=== PATIENT | female | born 1980 | race African-American/Black ===

== ENCOUNTER 2023-05-08 13:07 | Outpatient (CLI) | payer MEDICAID, SELFPAY ==
--- NOTE | 2023-05-08 13:15 | US_ITS ---
FINAL REPORT TECHNIQUE: Limited sonographic images of the thyroid were obtained. CLINICAL HISTORY: THROAT FULLNESS FINDINGS: The right lobe of the thyroid measures 4.9 x 1.6 x 1.9 cm. There is a cystic nodule measuring 2 x 1 x 1 mm consistent with TI-RADS category 1. The left lobe of the thyroid measures 4.6 x 1.4 x 1.9 cm. No nodule is identified. The isthmus measures 4 mm. IMPRESSION: Right thyroid lobe nodule consistent with TI-RADS category 1. Reviewed, Interpreted and Dictated by Alcides Taylor III, MD Transcribed by Macy Lee Authenticated and [facility]
== END 2023-05-08 23:59 ==
LOC: RAD 13:08
PROVIDERS: PCP Family Medicine; Visit Provider Family Medicine
DX: E01.0 Iodine-deficiency related diffuse (endemic) goiter (principal); R09.89 Other specified symptoms and signs involving the circulatory and respiratory systems
CPT/HCPCS: 76536

== ENCOUNTER 2024-10-05 13:09 | Emergency (ER) | payer MEDICAID, SELFPAY ==
--- OUTSIDE RECORDS SUMMARY | 2024-10-05 08:15 | XMS_ITS | Encounter Summary ---
Author Organization [facility] Address [address] [place] [address] Care Team Providers Care Box Nailer Name Role Phone Moses Bashir MD Primary Care Provider Reason for Referral * Consultation (Routine) - Authorized Specialty Diagnoses / Procedures Referred By Jeremias quintanilla Referred To Contact Diagnoses Chronic systolic heart failure (CMS/HCC) Mason Hendrix MD [address] [place] [address] Phone: tel: fax: Referral ID Status Reason Start Date Expiration Date V isits Requested Visits Authorized [id number] Authorized 10/05/2024 04/06/2026 1 1 * Genetic Testing (Routine) - Pending Review Specialty Diagnoses / Procedures Referred By Jeremias quintanilla Referred To Contact Lab Diagnoses Chronic systolic heart failure (CMS/HCC) Procedures [facility] Arrhythmia and Cardiomyopathy Comprehensive Panel; Yes; No; No - Miscellaneous Test Ganesh Jaramillo MD [address] [place] [address] Phone: tel: fax: Referral ID Status Reason Start Date Expiration Date V isits Requested Visits Authorized [id number] Pending Review 10/05/2024 04/06/2026 1 1 Reason for Visit * Reason Comments Atrial Fibrillation Shortness of Breath Encounter Details Date Type Department Care Team (Late st Contact Info) Description 10/05/2024 8:15 AM EDT Office Visit [facility] [place] [address], [address] [place] [address] Sascha Chiang MD [address] [place] [address] Chronic systolic heart failure (CMS/HCC) (Primary Dx); History of atrial fibrillation Social History Tobacco Use Types Packs/Day Years Used Date Smoking Tobacco: Every Day Cigarettes 0.5 10.5 Started: 2014 Smokeless Tobacco: Never Alcohol Use Standard Drinks/Week Comments Yes 0 (1 standard drink = 0.6 oz pur e alcohol) Humiliation, Afraid, Rape, and Kick questionnair e Answer Date Recorded Within the last year, have y ou been afraid of your partner or ex-partner? No 04/18/2024 Within the last year, have y ou been humiliated or emotionally abused in other ways by your partner or ex-partner? No Within the last year, have y ou been kicked, hit, slapped, or otherwise physically hurt by your partner or ex-partner? No 04/18/2024 Within the last year, have y ou been raped or forced to have any kind of sexual activity by your partner or ex-partner? No 04/18/2024 PHQ-2 Answer Date Recorded Patient Health Questionnaire-2 Score 0 10/05/2024 Hunger Vital Sign Answer Date Recorded Within the past 12 months, y ou worried that your food would run out before you got the money to buy more. Never true 04/18/19 25 Within the past 12 months, t he food you bought just didn't last and you didn't have money to get more. Never true 04/18/2024 PRAPARE - Transportation Answer Date Re corded In the past 12 months, has l ack of transportation kept you from medical appointments or from getting medications? No 03/24 In the past 12 months, has l ack of transportation kept you from meetings, work, or from getting things needed for daily living? No 04/18/2024 PHQ-9 Answer Date Recorded Patient Health Questionnaire-9 Score 0 10/05/2024 Housing Stability Vital Sign Answer John e Recorded In the last 12 months, was t here a time when you were not able to pay the mortgage or rent on time? No 04/18/2024 Number of Times Moved in the Last Year Not on fi le 04/18/2024 At any time in the past 12 m [facility], were you homeless or living in a detention (including now)? No 04/18/2024 AUDIT-C Answer Date Recorded Q1: How often do you have a drink containing alc ohol? Monthly or less 10/05/2024 Q2: How many drinks containi ng alcohol do you have on a typical day when you are drinking? 1 or 2 10/05/2024 Q3: How often do you have si x or more drinks on one occasion? Less than monthly 10/05/2024 Utilities Answer Date Recorded In the past 12 months has th e electric, gas, oil, or water company threatened to shut off services in your home? No 04/18/2024 Comments No Sex and Gender Information Value Date Recorded Sex Assigned at Not on file Legal Sex Female 8:37 PM EDT Gender Identity Not on file Sexual Orientation Not on file documented as of this encounter Last Filed Vital Signs Vital Sign Reading Time Taken Comments Blood Pressure 117/80 10/05/2024 8:34 AM EDT Pulse 79 10/05/2024 8:34 AM EDT Temperature 36.6 C (97.9 F) 10/05/2024 8:34 AM EDT Respiratory Rate 17 10/05/2024 8:34 AM EDT Oxygen Saturation 97% 10/05/2024 8:34 AM EDT Inhaled Oxygen Concentration - - Weight 98 kg (216 lb 0.8 oz) 10/05/2024 8:34 AM EDT Height 157.5 cm (5' 2 ) 10/05/2024 8:34 AM EDT Body Mass Index 39.52 10/05/2024 8:34 AM EDT documented in this encounter Functional Status * AUDIT-C Score Answer Date of Assessment Author 2 10/05/2024 8:37 AM EDT Yareli Hoffman * Question Answer Date of Assessment Author Q1: How often do you have a drink containing alcohol? Monthly or less 10/05/2024 8:37 AM Cholo Zabala Q2: How many drinks containing alcohol do you have on a typical day when you are drinking? 1 or 2 10/05/2024 8:37 AM Yareli Zabala Q3: How often do you have six or more drinks on one occasion? Less than monthly 10/05/2024 8:37 AM Yareli Zabala * Over the past 2 weeks, how often have you been bothered by any of the following problems? Question Answer Date of Assessment Author Little interest or pleasure in doing things Not at all 10/05/2024 8:49 AM Yareli Zabala Feeling down, depressed, or hopeless Not at all 10/05/2024 8:49 AM Yareli Zabala Patient Health Questionnaire -2 Score 0 10/05/2024 8:49 AM Yareli Zabala * Question Answer Date of Assessment Author Trouble falling or staying a sleep, or sleeping too much Not at all 10/05/2024 8:49 AM Yareli Zabala Feeling tired or having rupal le energy Not at all 10/05/2024 8:49 AM Yareli Zabala Poor appetite or overeating Not at all 10/05/2024 8: 49 AM Yareli Zabala Feeling bad about yourself - or that you are a failure or have let yourself or your family down Not at all 10/05/2024 8:49 AM Yareli Zabala Trouble concentrating on thi ngs, such as reading the newspaper or watching television Not at all 10/05/2024 8:49 AM Yareli Zabala Moving or speaking so slowly that other people could have noticed? Or the opposite - being so fidgety or restless that you have been moving around a lot more than usual. Not at all 10/05/2024 8:49 AM Yareli Mena Thoughts that you would be b irina off or hurting yourself in some way Not at all 10/05/2024 8:49 AM Yareli Zabala Patient Health Questionnaire -9 Score 0 10/05/2024 8:49 AM EDT Yareli Hoffman * If you checked off any problems on this questionnaire so far, Question Answer Date of Assessment Author How difficult have these problems made it for you to do your work, take care of things at home, or get along with other people? Not difficult at all 10/05/2024 8:49 AM EDT Yareli Hoffman documented as of this encounter Plan of Treatment Upcoming Encounters Date Type Department Care Team (Late st Contact Info) Description 01/11/2025 8:00 AM EDT Office Visit [facility] [address], [address] [place] [address] Sascha Chiang MD [address] [place] [address] Pending Results Name Type Priority Associated Diagnoses Date /Time [facility] Arrhythmia and Cardiomyopathy Comprehensive Panel; Yes; No; No - Miscellaneous Test Lab Routine Chronic systolic heart failure (CMS/HCC) 10/05/2024 9:15 AM EDT Ferritin Lab Routine Chronic systolic heart failure (CMS/HCC) 10/05/2024 9:15 AM EDT Iron & Total Iron Binding Capacity, Plasma (Includes Transferrin) Lab Routine Chronic systolic heart failure (CMS/HCC) 10/05/2024 9:15 AM EDT Scheduled Orders Name Type Priority Associated Diagnoses Orde r Schedule Ferritin Lab Routine Chronic systolic heart failure (CMS/HCC) Expected: 10/05/2024 (Approximate), Expires: 04/08/2026 Iron & Total Iron Binding Capacity, Plasma (Includes Transferrin) Lab Routine Chronic systolic heart failure (CMS/HCC) Expected: 10/05/2024 (Approximate), Expires: 04/08/2026 Scheduled Referrals Name Type Priority Associated Diagnoses Order Schedule Follow Up Cardiology Outpatient Referral Routine Chronic systolic heart failure ([facility]) Expected: 01/05/2025, Expires: 04/07/2026 documented as of this encounter Procedures Procedure Name Priority Date/Time Associated Diagnosis Comments CREATINE KINASE, TOTAL, PLASMA Routine 10/05/2024 9:15 AM EDT Chronic systolic heart failure ([facility]) N-TERMINAL PROBNP, PLASMA Routine 10/05/2024 9:15 AM EDT Chronic systolic heart failure (CMS/HCC) URIC ACID, PLASMA Routine 10/05/2024 9:1 5 AM EDT Chronic systolic heart failure (CMS/HCC) LIPID PROFILE, PLASMA Routine 10/05/2024 9:15 AM EDT Chronic systolic heart failure (CMS/HCC) COMPREHENSIVE METABOLIC PANEL, PLASMA Routine 10/05/2024 9:15 AM EDT Chronic systolic heart failure (CMS/HCC) ECG ADULT Routine 10/05/2024 8:44 AM EDT History of atrial fibrillation documented in this encounter Results * Uric acid (10/05/2024 9:15 AM EDT) Uric Acid, Plasma 5.2 3.1 - 7.1 mg/dL 10/05/2024 11:58 AM EDT [facility] Blood Venous blood specimen / Unknown Venipuncture / Unknown 10/05/2024 9:15 AM EDT 10/05/2024 9:16 AM EDT us Ganesh Jaramillo MD LAB BLOOD ORDERABLES Final Res ult [facility] [address] [place] [address] * (ABNORMAL) Comprehensive metabolic panel (10/05/2024 9:15 AM EDT) Glucose, Plasma 82 74 - 99 mg/dL 10/05/2024 11:58 AM EDT [facility] BUN, Plasma 21 7 - 21 mg/dL 10/05/2024 11:58 AM EDT [facility] Creatinine, Plasma 0.82 0.60 - 1.10 mg/dL 10/05/2024 11:58 AM EDT [facility] BUN/Creatinine Ratio 26 10/05/2024 11:58 AM EDT [facility] Sodium, Plasma 132(L) 136 - 145 mmol/L 10/05/2024 11:58 AM EDT [facility] Potassium, Plasma 4.4 3.6 - 4.9 mmol/L 10/05/2024 11:58 AM EDT [facility] Chloride, Plasma 101 97 - 107 mmol/L 10/05/2024 11:58 AM EDT [facility] CO2, Plasma 23 22 - 29 mmol/L 10/05/2024 11:58 AM EDT [facility] Anion Gap 8 6 - 16 mmol/L 10/05/2024 11:58 AM EDT [facility] Total Calcium, Plasma 9.4 8.9 - 10.2 mg/dL 10/05/2024 11:58 AM EDT [facility] Total Protein 7.5 6.3 - 7.9 g/dL 10/05/2024 11:58 AM EDT [facility] Albumin, Plasma 4.2 3.5 - 5.2 g/dL 10/05/2024 11:58 AM EDT [facility] AST, Plasma 19 10 - 35 U/L 10/05/2024 11:58 AM EDT [facility] ALT, Plasma 18 10 - 35 U/L 10/05/2024 11:58 AM EDT [facility] Alkaline Phosphatase, Plasma 67 35 - 104 U/L 10/05/2024 11:58 AM EDT [facility] Total Bilirubin, Plasma 0.2 0.2 - 1.1 mg/dL 10/05/2024 11:58 AM EDT [facility] eGFRcr 91.2 mL/min/1.7 3m*2 10/05/2024 11:58 AM EDT [facility] Comment:Reported eGFRcr in m L/min/1.73m2 is based the CKD-EPI 2020 equation that does not use a race coefficient. Blood Venous blood specimen / Unknown Venipuncture / Unknown 10/05/2024 9:15 AM EDT 10/05/2024 9:16 AM EDT us Ganesh Jaramillo MD LAB BLOOD ORDERABLES Final Res ult [facility] [address] [place] [address] * Creatine Kinase (CK), Total (10/05/2024 9:15 AM EDT) Creatine Kinase, Plasma 77 37 - 168 U/L 10/05/2024 11:58 AM EDT [facility] Blood Venous blood specimen / Unknown Venipuncture / Unknown 10/05/2024 9:15 AM EDT 10/05/2024 9:16 AM EDT us Ganesh Jaramillo MD LAB BLOOD ORDERABLES Final Res ult [facility] [address] [place] [address] * Lipid panel (10/05/2024 9:15 AM EDT) Cholesterol, Plasma 120 <200 mg/dL 10/05/2024 11:58 AM EDT [facility] Comment: Cholesterol Reference Range (age >17 years): Desirable <200 mg/dL Borderline 200 to 239 mg/dL Undesirable >239 mg/dL HDL 51 >=50 mg/dL 10/05/2024 11:58 AM EDT [facility] Comment: HDL Cholesterol Reference Ranges (age >17 years): Female, acceptable > or = 50 mg/dL Male, acceptable > or = 40 mg/dL Triglycerides, Plasma 97 <150 mg/dL 10/05/2024 11:58 AM EDT [facility] Comment: Triglyceride Reference Range (age >17 years): Desirable: <150 mg/dL Borderline high: 150 to 199 mg/dL High: 200 to 499 mg/dL Very high: >499 mg/dL Increased risk of pancreatitis: >1000 mg/dL Cholesterol/HDL Ratio 2 10/05/2024 11:58 AM EDT [facility] LDL, Calculated 51 <100 mg/dL 11:58 AM EDT [facility] Comment: LDL Cholesterol Reference Range (age >17 years): Optimal: <100 mg/dL Near or above optimal: 100 - 129 mg/dL Borderline high: 130 - 159 mg/dL High: 160 - 189 mg/dL Very high: >189 mg/dL LDL Cholesterol Reference Range (age <18 years): Desirable: <110 mg/dL Borderline: 110 - 129 mg/dL Undesirable: >130 mg/dL LDL Cholesterol is calculated using the Dwyer/NIH equation. Fasting greater than or equal to 12 hours? Unknown 10/05/2024 11:58 AM EDT [facility] Blood Venous blood specimen / Unknown Venipuncture / Unknown 10/05/2024 9:15 AM EDT 10/05/2024 9:16 AM EDT us Ganesh Jaramillo MD LAB BLOOD ORDERABLES Final Res ult Performing Organization Address City/[facility] Co de Phone Number [facility] [address] [place] [address] * N-Terminal Probnp, Plasma (10/05/2024 9:15 AM EDT) N-Terminal, PROBNP, Plasma <50 0 - 449 pg/mL 10/05/2024 11:58 AM EDT [facility] Blood Venous blood specimen / Unknown Venipuncture / Unknown 10/05/2024 9:15 AM EDT 10/05/2024 9:16 AM EDT us Ganesh Jaramillo MD LAB BLOOD ORDERABLES Final Res ult Performing Organization Address [facility] de Phone Number [facility] [address] [place] [address] * ECG Adult (Now - Performed in your clinic) (10/05/2024 8:44 AM EDT) EKG DIAGNOSIS CLASS Normal MUSE ECG Ventricular Rate 76 BPM MUSE ECG Atrial Rate 76 BPM MUSE ECG [place] Interval 198 ms MUSE ECG QRSD Interval 100 ms MUSE ECG QT Interval 382 ms MUSE ECG QTC Interval 429 ms MUSE ECG P [place] 33 degrees MUSE ECG R [place] 69 degrees MUSE ECG T Wave [place] 87 degrees MUSE ECG Diagnosis Normal sinus rhythm MUSE ECG Diagnosis Normal ECG MUSE ECG Diagnosis MUSE ECG Diagnosis Confirmed by Edwin Espinal ([id number]) on 10/05/2024 9:09:23 AM MUSE ECG 10/05/2024 8:44 AM EDT 10/05/2024 9:09 AM EDT us Mason Hendrix MD ECG ORDERABLES Final Result MUSE ECG documented in this encounter Visit Diagnoses Diagnosis Chronic systolic heart failure (CMS/HCC)- Primary Chronic systolic heart failure History of atrial fibrillation Personal history of other diseases of circulatory system documented in this encounter Additional Health Concerns Assessment Noted Time PHQ-9 Depression Total Score: 0 10/06/19 25 8:49 AM EDT A fall risk assessment has been complete d for the patient 10/05/2024 8:49 AM EDT A Body Mass Index follow-up plan has been documented for the patient 10/05/2024 9:34 AM EDT documented as of this encounter Care Teams Box Nailer Relationship Specialty Start Date End Date Moses Bashir MD [address] [place] [address] PCP - General Family Medicine 11/01/20 documented as of this encounter
--- NOTE | 2024-10-05 13:10 | ED_ITS ---
<Statement entered by Jeannine Reyes DO - 10/05/24 17:00> I was consulted by the RUBI, and we discussed the complexity of problems being addressed. I approve the treatment and management plan for this patient's care in the emergency department, thus performing a substantial portion of the medical decision making. Jeannine Reyes DO Discharge Plan Disposition Patient Disposition: Home, Self-Care Condition: Good Referrals Follow up/Referrals: Moses Bashir [Primary Care Provider, Medical] - See instructions Activity Restrictions/Add. Instructions Additional Instructions/Restrictions: As we discussed you can leave the wound open to air but but if you have to cover it please do not use an occlusive dressing. Please do not put any ointments or creams on your wound until the stitches come out. Your stitches need to come out in 7 to 10 days. He may return to your PCP MOC or the ER for suture removal if you have any increasing redness pain drainage or swelling return to the emergency department for evaluation. Clinical Impressions Clinical Impression: Laceration Instructions Patient Instructions: DI for Laceration Repair Print Language Print Language: Croatian Discharge ED Provider: Jeannine Reyes General Adult HPI General Chief complaint: Wound/Laceration Stated complaint: AO 1300 hours- laceration to Right hand Time Seen by Provider: 10/05/24 13:10 History of Present Illness HPI narrative: Patient presents for evaluation of laceration to right hand. Patient was washing dishes and a glass broke causing a laceration to the MCP joint of the second digit dorsally of her right hand. Patient has no loss of motor or sensory and has full range of motion. Related Data Allergies Allergy/AdvReac Type Severity Reaction Status Date / Time Penicillins Allergy Other Verified 10/05/24 13:26 [facility] Disclaimer: The information contained in this section may have been updated after the patient was seen, as this information can be updated by other users. Social History Smoking Status: Current every day smoker alcohol intake: never current occupational status: employed Travel in the last 8 weeks?: None ROS Obtained: Yes Systems reviewed as appropriate & no additional complaints except as documented Physical Exam General General appearance: alert Respiratory Respiratory exam: Present normal lung sounds bilaterally Cardiovascular Cardiovascular exam: Present regular rate Neurological Exam Neurological exam: Present alert and oriented X3 Medical Decision Making Medical Records Screening: Per USPSTF and CDC recommendations, given the prevalence of disease in our region, it is our hospital?s policy to screen for HIV and viral Hepatitis for all patients aged 18 and over and those with ongoing risk factors. Bunny Inquiry Pt receiving controlled substance: No Vital Signs: 10/05/24 13:17 10/05/24 13:17 10/05/24 13:30 Temperature 97.9 F 97.9 F Temperature Source Oral Oral Pulse Rate 80 78 Pulse Rate [Right] 80 Respiratory Rate 15 15 Blood Pressure 152/94 H 123/89 Blood Pressure [Right Arm] 152/94 H Blood Pressure Mean 98 Blood Pressure Mean [Right Arm] 113 Blood Pressure Source Automatic Cuff Blood Pressure Source [Right Arm] Automatic Cuff Blood Pressure Position Supine Blood Pressure Position [Right Arm] Supine 02 Sat by Pulse Oximetry 99 99 98 Oxygen Delivery Method Room Air Room Air 10/05/24 13:45 Temperature Temperature Source Pulse Rate 78 Pulse Rate [Right] Respiratory Rate Blood Pressure 127/88 Blood Pressure [Right Arm] Blood Pressure Mean Blood Pressure Mean [Right Arm] Blood Pressure Source Blood Pressure Source [Right Arm] Blood Pressure Position Blood Pressure Position [Right Arm] 02 Sat by Pulse Oximetry 99 Oxygen Delivery Method Orders (Tests/Meds): ED MEDICATIONS Discontinued Medications Generic Name Dose Route Start Last Admin Trade Name Freq PRN Reason Stop Dose Admin Lidocaine/Epinephrine 10 ml 10/05/24 13:15 Lidocaine 1% W/Epi 1:100,000 20ml Vial SQ 10/05/24 13:16 ONCE ONE Medical Decision Narrative: In summary patient is a 44-year-old female who presents to the emergency department for evaluation of laceration to right hand. Patient is dynamically stable upon arrival, afebrile. Exam is remarkable for a triangle shaped laceration at the MCP joint of her right hand. She denies any numbness tingling loss of motor or sensory is neurovascular intact distally.. Differential diagnosis includes could include an open laceration to the joint but there are no visible signs for any deeper injury so alternative diagnosis pursued. Initial workup was considered with imaging however patient remains neurovascular intact with full range of motion thus further workup not required. Initial interventions were considered for Tdap however patient is up-to-date thus deferred. Wound was cleaned and irrigated and then anesthetized with lidocaine and wound was closed primarily with seven 4.0 nylon stitches in an interrupted fashion. Wound care and strict return precautions were explained to the patient by myself. Patient verbalized understanding agreement. Procedures Laceration Laceration 1: Site: hand Side (If applicable): right Size (cm): 3.5 Description: other (Triangular) Depth: simple, single layer Local Anesthetic: lidocaine 1% and with epi Amount of anesthesia used (mL): 5 Pre-repair: wound explored, irrigated extensively and deep structures intact Skin layer closed with: nylon Size (cm): 4-0 Number of sutures: 7 Technique: simple, interrupted Critical Care Critical Care Time Critical Care Time: No
--- OUTSIDE RECORDS SUMMARY | 2024-10-05 13:16 | XMS_ITS | Encounter Summary ---
Author Organization [facility] ([place], [place], [place], [place]) Address [address] [place] [address] Care Team Providers Care Hide Stretcher Hand Name Role Phone Carlos Carrion MD Unavailable Bernardo Bashir MD Primary Care Provider [phone] Encounter Details Date Type Department Care Team (Late st Contact Info) Description 01/30/2021 Transcribed Document [facility] Family Medicine [address] [place] [address] ProviderNehemiah MD [address] [place] [address] Social History Tobacco Use Types Packs/Day Years Used Date Smoking Tobacco: Never Assessed Comments Unknown Sex and Gender Information Value Date Recorded Sex Assigned at Female 09/17/2021 2:29 PM CDT Legal Sex Female 2:29 PM CDT Gender Identity Female 09/17/2021 2:29 PM CDT Sexual Orientation Not on file documented as of this encounter Miscellaneous Notes * Cerner Conversion Note - Nehemiah ProviderMD - 01/30/2021 5:21 PM WOMEN SPECIALIST Pain Assessment Entered On: 02/01/2021 23:26 EST Performed On: 02/01/2021 21:48 EST by BHAVNA TAI RN-PATIENT CARE BEDSIDE NON-EXEMPT Intervention Information: acetaminophen-HYDROcodone Performed by BHAVNA TAI RN-PATIENT CARE BEDSIDE NON-EXEMPT on 02/01/2021 20:48:00 EST acetaminophen-HYDROcodone,1Tab Oral,Pain (Mild 1-3) Pain Assessment Pain Assessment : Follow-up assessment BHAVNA TAI RN-PATIENT CARE BEDSIDE NON-EXEMPT - 02/01/2021 23:25 EST Electronically signed by Melyssa [facility] Conversion Lehr Operator Cerner at 07/08/2022 9:05 AM CDT documented in this encounter Plan of Treatment Upcoming Encounters Date Type Department Care Team (Late st Contact Info) Description 11/17/2024 9:30 AM EDT Office Visit [facility] Electrophysiology [address] [place] [phone] Carlos Carrion MD [address] [place] [address] [place] [address] documented as of this encounter Visit Diagnoses Not on filedocumented in this encounter Care Teams Hide Stretcher Hand Relationship Specialty Start Date End Date Bernardo Bashir MD [address] [place] [address] PCP - General Family Medicine 05/13/24 Carlos Carrion MD [address] [place] [address] [place] [id number] [facility] 12/28/23 documented as of this encounter
--- OUTSIDE RECORDS SUMMARY | 2024-10-05 13:16 | XMS_ITS | Encounter Summary ---
Author Organization [employer] ([place], [place], [place], [place]) Address [address] [place] [address] Care Team Providers Care Human Resources Coordinator Name Role Phone Carlos Carrion MD Unavailable Bernardo Bashir MD Primary Care Provider [phone] [phone] Encounter Details Date Type Department Care Team (Late st Contact Info) Description 01/30/2021 Transcribed Document [facility] [place] [address] [place] [address] ProviderNehemiah MD [address] [place] [address] Social History Tobacco Use Types [...] Conversion Note - Nehemiah ProviderMD - 01/30/2021 3:57 PM NETWORK OPERATIONS ANALYST Patient: OSMAN ARAGON Age: 40 years Sex: Female : 1980 Associated Diagnoses: Pacemaker infection Author: CHOCO MARTINEZ MD Basic Information History source: Patient. Arrival mode: Private vehicle. History limitation: None. History of Present Illness The patient presents for a wound evaluation. Previous visit(s) 3 days ago. Previous treatment: pacer/defib placed about 2wks ago, incision site opened and started to drain pus. Denies fever/chills, n/v, cp, soa, abd pain. . Symptoms since visit: pain, redness, swelling drainage. The course/duration of symptoms is worsening. Risk factors consist of cardiomyopathy. Therapy today: doctor's office visit. Associated symptoms: denies fever and denies chills. Review of Systems Constitutional symptoms: No fever, no chills, no sweats, no weakness, no fatigue. Skin symptoms: No rash, Eye symptoms: Vision unchanged, no pain, no discharge, no blurred vision. ENMT symptoms: No ear pain, no sore throat, no nasal congestion. Respiratory symptoms: No shortness of breath, no cough. Cardiovascular symptoms: No chest pain, no palpitations, no syncope. Gastrointestinal symptoms: No abdominal pain, no nausea, no vomiting, no diarrhea. Genitourinary symptoms: No dysuria, no hematuria. Musculoskeletal symptoms: No back pain, no Joint pain. Neurologic symptoms: No headache, no dizziness, no numbness, no weakness. Physical Examination Vital Signs Oxygen saturation. General: Alert, no acute distress. Skin: Warm. Head: Normocephalic. Neck: Supple. Eye: Sclera: not icteric. Ears, nose, mouth and throat: Oral mucosa moist. Cardiovascular: Regular rate and rhythm, No murmur, Normal peripheral perfusion, No edema. Respiratory: Lungs are clear to auscultation, respirations are non-labored, breath sounds are equal. Chest wall: superior anterior chest wall pacemaker/defib incision site dehisced with purulent drainage and surrounding erythema. . Back: Nontender. Gastrointestinal: Soft, Nontender, Non distended, Normal bowel sounds. Neurological: No focal neurological deficit observed. Lymphatics: No lymphadenopathy. Psychiatric: Cooperative. Impression and Plan Diagnosis Pacemaker infection - Discharge, Medical Plan Condition: Stable, Guarded. Disposition: Admit Admit/Transfer/Discharge: Admit to Inpatient (Order): Start: 01/30/2021 16:07 EST, Admit reason: infected pacemaker site, Estimated length of stay 2 Midnights or LONGER, Level of Care: Telemetry unit, Admitting: ОЛЕГ LOCK MD-INT. Counseled: Patient, Family, Regarding diagnosis, Regarding diagnostic results, Regarding treatment plan, Patient indicated understanding of instructions. Notes: Patient presented with signs of infection around her recently placed pacemaker defibrillator. Erythema and drainage noted around the incision site. Patient is afebrile vital signs are stable. Nontoxic-appearing. Given IV vancomycin. Discussed and consulted with her EP vessel scrapper Dr. Carrion, he would like her admitted. Discussed with hospitalist Dr. Lock who accepts admission for further evaluation and care.. documented in this encounter Plan of Treatment Upcoming Encounters Date Type Department Care Team (Late st Contact Info) Description 11/17/2024 9:30 AM EDT Office Visit [facility] Electrophysiology [address] [place] [phone] Carlos Carrion MD [address] [place] [address] [address] documented as of this encounter Visit Diagnoses Not on filedocumented in this encounter Care Teams Human Resources Coordinator Relationship Specialty Start Date End Date Bernardo Bashir MD [address] [place] [address] PCP - General Family Medicine 05/13/24 Carlos Carrion MD [address] [place] [address] [address] Screen Printing Loader Unloader Electrophysiology 12/28/23 documented as of this encounter
--- OUTSIDE RECORDS SUMMARY | 2024-10-05 13:16 | XMS_ITS | Encounter Summary ---
Author Organization [employer] ([place], [place], [place], [place]) Address [address] [place] [address] Care Team Providers Care Rn Clinical Research Name Role Phone Carlos Carrion MD Unavailable Bernardo Bashir MD Primary Care Provider [phone] Encounter Details Date Type Department Care Team (Late st Contact Info) Description 01/30/2021 Transcribed Document [facility] [place] [address] [place] [address] ProviderNehemiah MD [address] [place] [address] Social History Tobacco Use Types Packs/Day Years Used Date Smoking Tobacco: Never Assessed Comments Unknown Sex and Gender Information Value Date Recorded Sex Assigned at Female 09/17/2021 2:29 PM CDT Legal Sex Female 2:29 PM CDT Gender Identity Female 09/17/2021 2:29 PM CDT Sexual Orientation Not on file documented as of this encounter Miscellaneous Notes * [employer]ner Conversion Note - Historical Provider, - 01/30/2021 9:52 PM CLERK SUPERVISOR ED Event Note Entered On: 01/30/2021 21:52 EST Performed On: 01/30/2021 21:52 EST by SUMIT LUGO RN ED Event Note ED Event Date/Time : 01/30/2021 21:52 EST ED Description of Event : report called to SUMIT Moreno RN, RN - 01/30/2021 21:52 EST Electronically signed by [facility] Conversion Portfolio Consultant Cerner at 07/08/2022 9:03 AM CDT documented in this encounter Plan of Treatment Upcoming Encounters Date Type Department Care Team (Late st Contact Info) Description 11/17/2024 9:30 AM EDT Office Visit [facility] Electrophysiology [address] [place] [phone] [place] [address] [place] [address] [id number] documented as of this encounter Visit Diagnoses Not on filedocumented in this encounter Care Teams Rn Clinical Research Relationship Specialty Start Date End Date Bernardo Bashir MD [address] [place] [address] PCP - General Family Medicine 05/13/24 Carlos Carrion MD [address] [place] [address] [id number] Assembler Latches And Springs Electrophysiology 12/28/23 documented as of this encounter
--- OUTSIDE RECORDS SUMMARY | 2024-10-05 13:16 | XMS_ITS | Encounter Summary ---
Author Organization [employer] ([place], [place], [place], [place]) Address [address] [place] [address] Care Team Providers Care Retail Director Name Role Phone Carlos Carrion MD Unavailable Bernardo Bashir MD Primary Care Provider [phone] [phone] Encounter Details Date Type Department Care Team (Late st Contact Info) Description 01/30/2021 Transcribed Document [facility] [place] Family Medicine [address] [place] [address] ProviderNehemiah MD [address] [place] [address] Social History Tobacco Use Types [...] - Nehemiah ProviderMD - 01/30/2021 5:21 PM RECRUITING SCHEDULER Pain Assessment Entered On: 01/31/2021 1:51 EST Performed On: 01/30/2021 23:58 EST by BHAVNA TAI RN-PATIENT CARE BEDSIDE NON-EXEMPT Intervention Information: acetaminophen Performed by BHAVNA TAI RN-PATIENT CARE BEDSIDE NON-EXEMPT on 01/30/2021 22:58:00 EST acetaminophen,650mg Oral,Pain (Mild 1-3) Pain Assessment Pain Assessment : Follow-up assessment BHAVNA TAI RN-PATIENT CARE BEDSIDE NON-EXEMPT - 01/31/2021 1:51 EST Electronically signed by Mitra Ragsdale Conversion Psychologist Research Assistant Cerner at 07/08/2022 8:46 AM CDT documented in this encounter Plan of Treatment Upcoming Encounters Date Type Department Care Team (Late st Contact Info) Description 11/17/2024 9:30 AM EDT Office Visit [facility] Electrophysiology [address] [place] [phone] Carlos Carrion MD [address] [place] [address] [phone] documented as of this encounter Visit Diagnoses Not on filedocumented in this encounter Care Teams Retail Director Relationship Specialty Start Date End Date Bernardo Bashir MD [address] [place], [place] [phone] PCP - General Family Medicine 05/13/24 Carlos Carrion MD [address] [place] [address] [phone] Horticulture/Floriculture Teacher Electrophysiology 12/28/23 documented as of this encounter
--- OUTSIDE RECORDS SUMMARY | 2024-10-05 13:16 | XMS_ITS | Encounter Summary ---
Author Organization [employer] ([place], [place], [place], [place]) Address [address] [place] [address] Care Team Providers Care Microsystems Engineer Name Role Phone Carlos Carrion MD Unavailable Bernardo Bashir MD Primary Care Provider [phone] [phone] Encounter Details Date Type Department Care Team (Late st Contact Info) Description 01/30/2021 Transcribed Document [facility] [place] [address] [place] [address] ProviderNehemiah MD [address] [place] [address] Social History Tobacco Use Types [...] Conversion Note - Nehemiah ProviderMD - 01/30/2021 10:22 PM FIRE EXTINGUISHER SPRINKLER INSPECTOR ED Discharge Entered On: 01/30/2021 22:24 EST Performed On: 01/30/2021 22:22 EST by SUMIT LUGO RN Discharge Process Patient Disposition : Admit/Observe SUMIT LUGO RN - 01/30/2021 22:22 EST Admission, ED Nurse Report Accepted By : Shari LAINEZ `Nurse Report (Hand Off) : Called SUMIT LUGO RN - 01/30/2021 22:22 EST Electronically signed by Melyssa [facility] Conversion Registered Associate Cerner at 07/08/2022 9:04 AM CDT documented in this encounter Plan of Treatment Upcoming Encounters Date Type Department Care Team (Late st Contact Info) Description 11/17/2024 9:30 AM EDT Office Visit [facility] Electrophysiology [address] [place] [phone] Carlos Carrion MD [address] [place] [address] [phone] documented as of this encounter Visit Diagnoses Not on filedocumented in this encounter Care Teams Microsystems Engineer Relationship Specialty Start Date End Date Bernardo Bashir MD [address] [place] [address] PCP - General Family Medicine 05/13/24 Carlos Carrion MD [address] [place] [address] [phone] Fruit Dumper Electrophysiology 12/28/23 documented as of this encounter
--- OUTSIDE RECORDS SUMMARY | 2024-10-05 13:16 | XMS_ITS | Encounter Summary ---
Author Organization [employer] ([place], [place], [place], [place]) Address [address] [place] [address] Care Team Providers Care Weight Analyst Name Role Phone Carlos Carrion MD Unavailable Bernardo Bashir MD Primary Care Provider [phone] [phone] Encounter Details Date Type Department Care Team (Late st Contact Info) Description 01/30/2021 Transcribed Document [facility] [place] Family Medicine [address] [place] [address] ProviderNehemiah MD [address] [place] [address] Social History Tobacco Use Types Packs/Day Years Used Date Smoking Tobacco: Never Assessed Comments Unknown Sex and Gender Information Value Date Recorded Sex Assigned at Female 09/17/2021 2:29 PM CDT Legal Sex Female 2:29 PM CDT Gender Identity Female 09/17/2021 2:29 PM CDT Sexual Orientation Not on file documented as of this encounter Miscellaneous Notes * [employer]ner Conversion Note - Historical ProviderMD - 01/30/2021 12:04 PM NURSE ORTHO Nutrition Assessment Entered On: 02/01/2021 10:22 EST Performed On: 02/01/2021 10:22 EST by Elvira Elmore Diet Technician Nutrition Assessment Nutrition Assessment Reason : Automatic referral Elvira Elmore Diet Technician - 02/01/2021 10:22 EST Nutrition Recommendations Dietitian Recommendations : 02/01: Consult received for BMI >40. 40yo F admitted for infected surgical site s/p ICD implantation on 01/16. PMHx of nonischemic cardiomyopathy, GERD, HTN, tachycardia. Pt on cardiac, low fat, low sodium (2g) diet, no intakes documented. Pt reports appetite is good/normal. Denies n/v/d. No UWL documented. Pacemaker site inflammation present (covered w/glue). Treating w/abx. Written and verbal cardiac diet education provided to pt. Pt states familiarity. LBM 02/01. No nutrition dx at this time. signal technician to rescreen in 7-10 days. Elvira Elmore, Diet Dish Person - 02/01/2021 11:23 EST Electronically signed by [facility] Conversion Vermin Exterminator Cerner at 07/08/2022 8:57 AM CDT documented in this encounter Plan of Treatment Upcoming Encounters Date Type Department Care Team (Late st Contact Info) Description 11/17/2024 9:30 AM EDT Office Visit [facility] Electrophysiology [address] [place] [phone] Carlos Carrion MD [address] [place] [address] [place] [address] documented as of this encounter Visit Diagnoses Not on filedocumented in this encounter Care Teams Weight Analyst Relationship Specialty Start Date End Date Bernardo Bashir MD [address] [place] [address] PCP - General Family Medicine 05/13/24 Carlos Carrion MD [address] [place] [address] Separator Tender Electrophysiology 12/28/23 documented as of this encounter
--- OUTSIDE RECORDS SUMMARY | 2024-10-05 13:16 | XMS_ITS | Encounter Summary ---
Author Organization [employer] ([place], [place], [place], [place]) Address [address] [place] [address] Care Team Providers Care Title I Director Name Role Phone Carlos Carrion MD Unavailable Bernardo Bashir MD Primary Care Provider [phone] Encounter Details Date Type Department Care Team (Late st Contact Info) Description 01/30/2021 Transcribed Document [facility] [place] [address] [place] [address] ProviderNehemiah MD [address] [place] [address] Social History Tobacco Use Types Packs/Day [...] Conversion Note - Historical ProviderMD - 01/30/2021 4:51 PM PRESS TENDER SHORT GOODS Consult Phone Call Documentation Entered On: 01/31/2021 9:09 EST Performed On: 01/30/2021 16:51 EST by Marla Hernández Phone Call for Consults Consult Phone Call/Page Attempt : First call Consult Reason : infected pacemaker Physician Requesting Consult : ОЛЕГ TERRY MD-INT Provider Service Notified Name : Cardiology Date and Time Call Returned : 01/31/2021 9:08 EST Consult, Additional Information : They were aware and have seen patient Marla Hernández - 01/31/2021 9:08 EST Electronically signed by Mely[facility] Conversion Folder Taper Operator Cerner at 07/08/2022 8:47 AM CDT documented in this encounter Plan of Treatment Upcoming Encounters Date Type Department Care Team (Late st Contact Info) Description 11/17/2024 9:30 AM EDT Office Visit [facility] Electrophysiology [address] [place] [phone] Carlos Carrion MD [address] [place] [address] [place] [phone] documented as of this encounter Visit Diagnoses Not on filedocumented in this encounter Care Teams Title I Director Relationship Specialty Start Date End Date Bernardo Bashir MD [address] [place] [address] PCP - General Family Medicine 05/13/24 Carlos Carrion MD [address] [place] [address] [phone] Remote Sensing Research Scientist Electrophysiology 12/28/23 documented as of this encounter
--- OUTSIDE RECORDS SUMMARY | 2024-10-05 13:16 | XMS_ITS | Encounter Summary ---
Author Organization [employer] ([place], [place], [place], [place]) Address [address] [place] [address] Care Team Providers Care Satellite Instruction Facilitator Name Role Phone Carlos Carrion MD Unavailable Bernardo Bashir MD Primary Care Provider [phone] [phone] Encounter Details Date Type Department Care Team (Late st Contact Info) Description 01/30/2021 Transcribed Document [facility] [place] Family Medicine [address] [place] [address] ProviderNehemiah MD [address] [place] [address] Social History Tobacco Use Types [...] Conversion Note - Historical ProviderMD - 01/30/2021 10:20 PM QUARTER FOLDER ED Event Note Entered On: 01/30/2021 22:22 EST Performed On: 01/30/2021 22:20 EST by SUMIT LUGO RN ED Event Note ED Event Date/Time : 01/30/2021 22:05 EST ED Description of Event : Patient complains of itching and redness to her chest and neck area that began after vancomycin infusion. Vancomycin discontinued, IV flushed and new allergy documented. Pt denies SOA or CP at this time, primary RN on 4IC aware via phone SUMIT LUGO RN - 01/30/2021 22:20 EST Electronically signed by Melyssa [facility] Conversion Software Support Specialist Cerner at 07/08/2022 9:09 AM CDT documented in this encounter Plan of Treatment Upcoming Encounters Date Type Department Care Team (Late st Contact Info) Description 11/17/2024 9:30 AM EDT Office Visit [facility] Electrophysiology [address] [place] [phone] Carlos Carrion MD [address] [place] [address] [place] [phone] documented as of this encounter Visit Diagnoses Not on filedocumented in this encounter Care Teams Satellite Instruction Facilitator Relationship Specialty Start Date End Date Bernardo Bashir MD [address] [place] [address] PCP - General Family Medicine 05/13/24 Carlos Carrion MD [address] [place] [address] [phone] Medical Information Officer Electrophysiology 12/28/23 documented as of this encounter
--- OUTSIDE RECORDS SUMMARY | 2024-10-05 13:16 | XMS_ITS | Encounter Summary ---
Author Organization [employer] ([place], [place], [place], [place]) Address [address] [place] [address] Care Team Providers Care Hydrogen Plant Operations Manager Name Role Phone Carlos Carrion MD Unavailable Bernardo Bashir MD Primary Care Provider [phone] Encounter Details Date Type Department Care Team (Late st Contact Info) Description 01/30/2021 Transcribed Document [facility] [place] [address] [place] [address] ProviderNehemiah MD [address] [place] [address] Social History Tobacco Use Types [...] Conversion Note - Historical ProviderMD - 01/30/2021 10:34 PM UNIFIED COMMUNICATIONS ENGINEER Meds to Bed Enrollment Entered On: 01/31/2021 9:27 EST Performed On: 01/30/2021 22:34 EST by Kashif Stephens Canal Boat Operator Cert Lead Meds to Bed Enrollment Patient Enrollment Decision: : Yes/enroll in meds to bed program Kashif Stephens Canal Boat Operator Cert Lead - 01/31/2021 9:27 EST documented in this encounter Plan of Treatment Upcoming Encounters Date Type Department Care Team (Late st Contact Info) Description 11/17/2024 9:30 AM EDT Office Visit [facility] Electrophysiology [address] [place] [phone] Carlos Carrion MD [address] [facility] [address] [address] documented as of this encounter Visit Diagnoses Not on filedocumented in this encounter Care Teams Hydrogen Plant Operations Manager Relationship Specialty Start Date End Date Bernardo Bashir MD [address] [place] [address] PCP - General Family Medicine 05/13/24 Carlos Carrion MD [address] [facility] [address] [address] Manager Field Sales Electrophysiology 12/28/23 documented as of this encounter
--- OUTSIDE RECORDS SUMMARY | 2024-10-05 13:16 | XMS_ITS | Encounter Summary ---
Author Organization [employer] ([place], [place], [place], [place]) Address [address] [place] [address] Care Team Providers Care Photoengraving Apprentice Name Role Phone Carlos Carrion MD Unavailable Bernardo Bashir MD Primary Care Provider [phone] Encounter Details Date Type Department Care Team (Late st Contact Info) Description 01/30/2021 Transcribed Document [facility] [place] [address] [place] [address] ProviderNehemiah MD [address] [place] [address] Social History Tobacco Use Types [...] Conversion Note - Historical ProviderMD - 01/30/2021 11:57 AM GASOLINE FINISHER ED Triage Entered On: 01/30/2021 12:04 EST Performed On: 01/30/2021 12:00 EST by Alix Edmond Rn ED Triage Across the Room Chief Complaint : c/o of oozing drainage from surgical wound. Had defib placed by Dr. tariq on Jan 16. Instructed to come to Ed for possible infection. Denies fever. Hx of CHF Triage Date/Time : 01/30/2021 12:00 EST Alix Edmond Rn - 01/30/2021 12:00 EST DCP GENERIC CODE Tracking Acuity : 3 - Urgent Tracking Group : [facility] ED Alix Edmond Rn - 01/30/2021 12:00 EST Mode of Arrival : Ambulatory Transported to ED by : Walk in To Room Via : Ambulate Accompanied By : Father ED Vital Signs : Document Height & Weight : Document ED Allergies : Document ED Reason for Visit : Document Alix Edmond Rn - 01/30/2021 12:00 EST Infectious Disease History Does patient have symptoms of COVID-19? : No Has the Patient Been Tested for COVID-19 in the last 14 days? : No, Patient stated Does the Patient state known exposure to a COVID-19 positive case in the last 14 days? : No Patient Vaccinated for COVID-19 : Not vaccinated Does Patient want a COVID-19 Vaccine? : No Alix Edmond Rn - 01/30/2021 12:00 EST Infectious Disease Risk Screening Grid Cough < 2 wks of unknown origin : NO Cough > 2 weeks : NO Blood in Sputum : NO Fever or self-reported Fever : NO Rash of unknown origin : NO Headache : NO Stiff neck : NO Night Sweats : NO Unexplained Weight Loss : NO Diarrhea (3 episode per day) : NO Alix Edmond Rn - 01/30/2021 12:00 EST Physical contact outside US in the last 30 days : No Hospitalized in Foreign Country : No Infectious Disease History : Chicken pox/Shingles, Mononucleosis, Mumps INF Disease TB Screening Calc : 0 INF Disease Recent Travel Calc : 0 Alix Edmond Rn - 01/30/2021 12:00 EST Vital Signs ED Temperature Source : Temporal artery scanning Temperature Mode : Fahrenheit Temperature, Fahrenheit : 98.0 Deg F ED Pain : Yes Clinical Temperature, C : 36.7 Deg C Oxygen Therapy Mode : Room air Peripheral Pulse Rate : 84 bpm Respiratory Rate : 19 Breaths/Min Systolic Blood Pressure : 123 mmHg Diastolic Blood Pressure : 80 mmHg Oxygen Saturation : 98 % Alix Edmond Rn - 01/30/2021 12:00 EST Allergy (As Of: 01/30/2021 12:04:21 EST) Allergies (Active) penicillin Estimated Onset Date: Unspecified ; Created By: Contributor_system HIST_RONALDO; Reaction Status: Active ; Category: Drug ; Substance: penicillin ; Type: Allergy ; Updated By: Contributor_system HIST_RONALDO; Reviewed Date: 01/30/2021 12:02 EST Diagnosis Control ED (As Of: 01/30/2021 12:04:21 EST) Problems(Active) Cardiomyopathy (SNOMED CT :869337431 ) Name of Problem: Cardiomyopathy ; Recorder: SARAHY MARTINEZ RN; Confirmation: Confirmed ; Classification: Patient Stated ; Code: [id number] ; Contributor System: Emote GamesChart ; Last Updated: 01/16/2021 11:50 EDT ; Life Cycle Date: 01/16/2021 ; Life Cycle Status: Active ; Vocabulary: SNOMED CT GERD (gastroesophageal reflux disease) (SNOMED CT :528261360 ) Name of Problem: GERD (gastroesophageal reflux disease) ; Recorder: SARAHY MARTINEZ RN; Confirmation: Confirmed ; Classification: Patient Stated ; Code: [id number] ; Contributor System: [employer]Chart ; Last Updated: 01/16/2021 11:52 EDT ; Life Cycle Date: 01/16/2021 ; Life Cycle Status: Active ; Vocabulary: SNOMED CT HTN (hypertension) (SNOMED CT :6887761758 ) Name of Problem: HTN (hypertension) ; Recorder: SARAHY MARTINEZ RN; Confirmation: Confirmed ; Classification: Patient Stated ; Code: [id number] ; Contributor System: PowerChart ; Last Updated: 01/16/2021 11:51 EDT ; Life Cycle Date: 01/16/2021 ; Life Cycle Status: Active ; Vocabulary: SNOMED CT Tachycardia (SNOMED CT :4863387 ) Name of Problem: Tachycardia ; Recorder: SARAHY MARTINEZ RN; Confirmation: Confirmed ; Classification: Patient Stated ; Code: [id number] ; Contributor System: PowerChart ; Last Updated: 01/16/2021 11:51 EDT ; Life Cycle Date: 01/16/2021 ; Life Cycle Status: Active ; Vocabulary: SNOMED CT Diagnoses(Active) Medical screening exam Date: 01/30/2021 ; Diagnosis Type: Reason For Visit ; Confirmation: Complaint of ; Clinical Dx: Medical screening exam ; Classification: Medical ; Clinical Service: Non-Specified ; Code: PNED ; Probability: 0 ; Diagnosis Code: [id number] ED Height and Weight Height Source : Stated Height Entry Format : [place] Height, Feet : 5 ft(Converted to: 152 cm, 60 Inch) Height, Inches : 1 Inch(Converted to: 0 ft 1 Inch, 2.54 cm) Clinical Height : 154.94 cm Weight Source, ED : Critical estimated dosing weight Weight Entry Format : [place] Weight, Pounds : 211 lb Clinical Dosing Weight : 95.91 kg Body Surface Area (BSA) : 1.93 m2 Body Mass Index : 40 kg/m2 (HI) [place] Body Weight (IBW) : 47.45 kg Alix Edmond Rn - 01/30/2021 12:00 EST Pain Assessment Pain Assessment : Initial assessment Pain Scale Used : 0-10 Scale Alix Edmond Rn - 01/30/2021 12:00 EST Pain Scale Intensity : 2 Alix Edmond Rn - 01/30/2021 12:00 EST Image 4 - Images currently included in the form version of this document have not been included in the text rendition version of the form. Electronically signed by Melyssa [facility] Conversion Pipe Insulator Cerner at 07/08/2022 8:45 AM CDT documented in this encounter Plan of Treatment Upcoming Encounters Date Type Department Care Team (Late st Contact Info) Description 11/17/2024 9:30 AM EDT Office Visit [facility] Electrophysiology [address] [place], [place] [id number] Carlos Carrion MD [address] [place] [address] documented as of this encounter Visit Diagnoses Not on filedocumented in this encounter Care Teams Photoengraving Apprentice Relationship Specialty Start Date End Date Bernardo Bashir MD [address] [place] [address] PCP - General Family Medicine 05/13/24 Carlos Carrion MD [address] [place] [address] [place] [address] Manager Document Electrophysiology 12/28/23 documented as of this encounter
--- OUTSIDE RECORDS SUMMARY | 2024-10-05 13:16 | XMS_ITS | Encounter Summary ---
Author Organization [employer] ([place], [place], [place], [place]) Address [address] [place] [address] Care Team Providers Care Wood Stock Blank Handler Name Role Phone Carlos Carrion MD Unavailable Bernardo Bashir MD Primary Care Provider [phone] Encounter Details Date Type Department Care Team (Late st Contact Info) Description 01/30/2021 Transcribed Document [facility] [place] Family Medicine [address] [place] [address] ProviderNehemiah MD [address] [place] [address] Social History Tobacco Use Types [...] Conversion Note - Historical ProviderMD - 01/30/2021 6:09 PM REGISTRY NP Patient: OSMAN ARAGON Age: 40 years Sex: Female : 1980 Associated Diagnoses: None Author: Kelby Vuong, PharmD/MPH, Pharmacist-Resident Patient is a 40 YOF who presented to the ED on 01/30 with 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 Pharmacy consulted to dose vancomycin for potential endocarditis/SSTI. ABW=96kg SCr: 0.8 ClCr: >100mL/min Consulting MD: Virgil ID: No Goal Trough: 12-16 Current Abx: 01/30 vanc PTD JAN 30 17:04 L 134 105 12 / 93 4.2 27 0.80 \ JAN 30 17:04 \ 13.2 / L 4.4 274 / 40.7 \ Labs (Last four charted values) WBC L 4.4 (JAN 30) HB 13.2 (JAN 30) HCT 40.7 (JAN 30) Plt 274 (JAN 30) Na L 134 (JAN 30) K 4.2 (JAN 30) Cl 105 (JAN 30) CO2 27 (JAN 30) BUN 12 (JAN 30) Cr 0.80 (JAN 30) Glu R 93 (JAN 30) Ca 9.3 (JAN 30) Vitals Signs (last 24 hrs) Last Charted Minimum Maximum Temp 98.0 (JAN 30 12:00) 98.0 (JAN 30:00) 98.0 (JAN 30:) Periph HR 84 (JAN 30:00) 84 (JAN 30 12:00) 84 (JAN 30:) Resp Rate 19 (JAN 30 12:00) 19 (JAN 30 12:00) 19 (JAN 30 12:00) SBP 123 (JAN 30:00) 123 (JAN 30:00) 123 (JAN 30:00) DBP 80 (JAN 30:00) 80 (JAN 30 12:00) 80 (JAN 30 12:00) SpO2 98 (JAN 30:00) 98 (JAN 30:00) 98 (JAN 30:00) Micro: 01/30 wound: pend Vanc levels: 02/01 trough @0400: [ordered] A/P: 1. Vanc 2000mg (20mg/kg) x1 LD, followed by 1500mg (15mg/kg) MD q12h. 2. Trough prior to 4th dose on 02/01. Please hold dose if level >20mcg/mL. 3. Renal fxn stable. Cx pending. 4. Pharmacy will follow. 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 Cancel Vanco trough ID consult pending Rx to sign off Thank You, Tommy Almanza RPh Electronically signed by Mitra Ragsdale Conversion Mobile Health Vehicle Operator Cerner at 07/08/2022 8:56 AM CDT documented in this encounter Plan of Treatment Upcoming Encounters Date Type Department Care Team (Late st Contact Info) Description 11/17/2024 9:30 AM EDT Office Visit [facility] Electrophysiology [address] [place], [place] [phone] Carlos Carrion MD [address] [place] [address] [place] [id number] documented as of this encounter Visit Diagnoses Not on filedocumented in this encounter Care Teams Wood Stock Blank Handler Relationship Specialty Start Date End Date Bernardo Bashir MD [address] [place] [address] PCP - General Family Medicine 05/13/24 Carlos Carrion MD [address] [place] [address] [address] Program Eligibility Specialist Electrophysiology 12/28/23 documented as of this encounter
--- OUTSIDE RECORDS SUMMARY | 2024-10-05 13:16 | XMS_ITS | Encounter Summary ---
Author Organization [employer] ([place], [place], [place], [place]) Address [address] [place] [address] Care Team Providers Care Family Engagement Specialist Name Role Phone Carlos Carrion MD Unavailable Bernardo Bashir MD Primary Care Provider [phone] Encounter Details Date Type Department Care Team (Late st Contact Info) Description 01/31/2021 Transcribed Document [facility] [place] [address] [place] [address] ProviderNehemiah MD [address] [place] [address] Social History Tobacco Use Types [...] Cerner Conversion Note - Historical Provider, - 01/31/2021 11:20 AM RUBBER TIRE AND TUBES SUPERVISOR UM Authorization Entered On: 01/31/2021 11:21 EST Performed On: 01/31/2021 11:20 EST by Nataliya Keita Rn-Utilization Review Primary Insurance Authorization Authorization and Policy Numbers : Insurance 1 Health Plan: [employer] [facility] Policy Number: [id number] Authorization Number: Insurance Primary Name : [facility] Policy Number: [id number] Authorization Status-Primary : Awaiting callback Reference Number-Primary : [id number] Authorized Service Begin Date-Primary : 01/30/2021 EST Authorization Comments-Primary : AUTH SUBMITTED VIA PORTAL W/ CLINICAL ATTACHED Historical Authorization Comments-Primary : No Authorization Comments Found Nataliya Keita, Rn-Utilization Review - 01/31/2021 11:20 EST Electronically signed by [facility], [facility] Conversion Mechanical Integrity Engineer Cerner at 07/08/2022 8:48 AM CDT documented in this encounter Plan of Treatment Upcoming Encounters Date Type Department Care Team (Late st Contact Info) Description 11/17/2024 9:30 AM EDT Office Visit [facility] Electrophysiology [address] [place] [phone] Carlos Carrion MD [address] [place] [address] documented as of this encounter Visit Diagnoses Not on filedocumented in this encounter Care Teams Family Engagement Specialist Relationship Specialty Start Date End Date Bernardo Bashir MD [address] [place] [address] PCP - General Family Medicine 05/13/24 Carlos Carrion MD [address] [place], [place] [id number] Custodian Blood Bank Electrophysiology 12/28/23 documented as of this encounter
--- OUTSIDE RECORDS SUMMARY | 2024-10-05 13:16 | XMS_ITS | Encounter Summary ---
Author Organization [employer] ([place], [place], [place], [place]) Address [address] [place] [address] Care Team Providers Care Agile Test Lead Name Role Phone Carlos Carrion MD Unavailable Bernardo Bashir MD Primary Care Provider [phone] [phone] Encounter Details Date Type Department Care Team (Late st Contact Info) Description 01/30/2021 Transcribed Document [facility] [place] [address] [place] [address] ProviderNehemiah MD [address] [place] [address] Social History Tobacco Use Types [...] - Historical ProviderMD - 01/30/2021 11:57 AM LPN RN HOSPICE [place] Suicide Severity Rating Scale (C-SSRS) Entered On: 01/30/2021 20:59 EST Performed On: 01/30/2021 20:58 EST by SUMIT LUGO RN [place] Suicide Severity Rating Scale (C-SSRS) CSSRS Past Month Wish to be : No CSSRS Past Month Suicidal Thoughts : No CSSRS Lifetime Suicide Behavior : No Suicide Severity Rating Score : 0 Suicide Severity Rating : No Additional Care Required at this time SUMIT LUGO RN - 01/30/2021 20:58 EST Electronically signed by Melyssa [facility] Conversion Meter Reader Chief Franci at 07/08/2022 8:51 AM CDT documented in this encounter Plan of Treatment Upcoming Encounters Date Type Department Care Team (Late st Contact Info) Description 11/17/2024 9:30 AM EDT Office Visit [facility] Electrophysiology [address] [place] [phone] Carlos Carrion MD [address] [place] [phone] documented as of this encounter Visit Diagnoses Not on filedocumented in this encounter Care Teams Agile Test Lead Relationship Specialty Start Date End Date Bernardo Bashir MD [address] [place] [address] PCP - General Family Medicine 05/13/24 Carlos Carrion MD [address] [place] [id number] Rn Teacher Electrophysiology 12/28/23 documented as of this encounter
--- OUTSIDE RECORDS SUMMARY | 2024-10-05 13:16 | XMS_ITS | Encounter Summary ---
Author Organization [employer] ([place], [place], [place], [place]) Address [address] [place] [address] Care Team Providers Care Professor Of Theology Name Role Phone Carlos Carrion MD Unavailable Bernardo Bashir MD Primary Care Provider [phone] [phone] Encounter Details Date Type Department Care Team (Late st Contact Info) Description 01/30/2021 Transcribed Document [facility] [place] [address] [place] [address] ProviderNehemiah MD [address] [place] [address] Social History Tobacco Use Types [...] Conversion Note - Historical Provider, - 01/30/2021 4:29 PM MOBILE MARKETING MANAGER Admission History, Adult Entered On: 01/30/2021 22:44 EST Performed On: 01/30/2021 22:44 EST by BHAVNA TAI RN-PATIENT CARE BEDSIDE NON-EXEMPT Advance Directive Patient has Advance Directive *Q : No, patient refuses Advance Directive information BHAVNA TAI RN-PATIENT CARE BEDSIDE NON-EXEMPT - 01/30/2021 22:39 EST Anesthesia/Transfusion History Family History of Anesthesia Reaction : No prior transfusion(s) Blood Transfusion Acceptable to Patient : Yes Transfusion History : Prior anesthesia without reaction Family History of Anesthesia Reaction : None BHAVNA TAI RN-PATIENT CARE BEDSIDE NON-EXEMPT - 01/30/2021 22:39 EST Functional Assessment Living Situation : Home Persons Assisting Patient at Home : Child/Children ZARATE Hx Falls Immediate/Within 3 Months : No Current Home Treatments : None BHAVNA TAI RN-PATIENT CARE BEDSIDE NON-EXEMPT - 01/30/2021 22:39 EST General Info Mode of Arrival on Unit : Ambulatory Legal Guardian : Father Support Person/Pt Rep Name : Randall rivera [phone] Tom Family/Rep/Phys Notified of Admit : No Emergency Contact #1 : Randall Aragon Emergency Contact #1 Phone Number : [phone] Emergency Contact #1 Relationship : Father Emergency Contact #2 : n/a Emergency Contact #2 Phone Number : n/a Emergency Contact #2 Relationship : n/a Chief Complaint : c/o of oozing drainage from surgical wound. Had defib placed by Dr. tariq on Jan 16. Instructed to come to Ed for possible infection. Denies fever. Hx of CHF Information Obtained From : Patient Primary Language : Nauruan Communication Barrier : None Bracelet And Brooch Maker Needed : No BHAVNA TAI RN-PATIENT CARE BEDSIDE NON-EXEMPT - 01/30/2021 22:39 EST Fall Risk Scales ABCs Fall Injury Risk Identification : None Injury Moderate to High Risk Interventions : Specialty low bed, Transport methods appropriate to patient ZARATE Hx Falls Immediate/Within 3 Months : No Zarate Secondary Diagnosis : Yes ZARATE Use of Ambulatory Aid : Bed rest/Nurse assist ZARATE IV Therapy or IV Access : Yes Zarate Gait/Transferring : Normal, bedrest, immobile Zarate Mental Status : Oriented to own ability Zarate Fall Risk Score : 35 ZARATE Fall Scale Risk Level : 25-45 Medium Risk [place] Fall Interventions : Adequate lighting, Assistive devices within reach, Bed in low position, Call device within reach, Fall prevention handout/education per facility policy, Frequent orientation to call device, Frequent orientation to surroundings, Hourly comfort/safety rounds, Reinforced to call for assistance before getting out of bed, Room free of clutter/spills, Upper side-rails up, Wheels locked, Wires/Cords secured Fall Moderate to High Risk Interventions : Transport methods appropriate to patient BHAVNA TAI RN-PATIENT CARE BEDSIDE NON-EXEMPT - 01/30/2021 22:39 EST Fall Risk Education Grid Alarms : Verbalizes understanding Assistive Equipment Use : Verbalizes understanding Bed Height/Stabilization : Verbalizes understanding Call light use : Verbalizes understanding Door Open : Verbalizes understanding Environmental Management : Verbalizes understanding Fall Prevention Protocol : Verbalizes understanding Need Constant Observation : Verbalizes understanding Night Light Use : Verbalizes understanding Nonskid Footwear Use : Verbalizes understanding BHAVNA TAI RN-PATIENT CARE [facility] NON-EXEMPT - 01/30/2021 22:39 EST Fall Risk Scale Calc Temp : 0 BHAVNA TAI RN-PATIENT CARE BEDSIDE NON-EXEMPT - 01/30/2021 22:39 EST Health Histories Smoking Status : Never (less than 100 in lifetime; none in last 30 days), 10 or more cigarettes (1/2 pack or more)/day in last 30 days Smokeless Tobacco Status : Refused tobacco status screen Desires Tobacco Cessation Medication : Yes BHAVNA TAI RN-PATIENT CARE [facility] NON-EXEMPT - 01/30/2021 22:39 EST Social History (As Of: 01/30/2021 22:44:48 EST) Height and Weight, Clinical Dosing Height Source : Stated Height Entry Format : [place] Height, Feet : 5 ft(Converted to: 152 cm, 60 Inch) Height, Inches : 1 Inch(Converted to: 0 ft 1 Inch, 2.54 cm) Clinical Height : 154.94 cm Weight Source : Bed scale Weight Entry Format : [place] Clinical Dosing Weight : 95.91 kg Weight, Pounds : 211 lb Body Surface Area (BSA) : 1.93 m2 Body Mass Index : 40 kg/m2 (HI) [place] Body Weight : 47 kg BHAVNA TAI RN-PATIENT CARE BEDSIDE NON-EXEMPT - 01/30/2021 22:39 EST Infectious Disease History Does patient have symptoms of COVID-19? : No Has the Patient Been Tested for COVID-19 in the last 14 days? : No, Patient stated Does the Patient state known exposure to a COVID-19 positive case in the last 14 days? : No Patient Vaccinated for COVID-19 : Not vaccinated Does Patient want a COVID-19 Vaccine? : No BHAVNA TAI RN-PATIENT CARE [facility] NON-EXEMPT - 01/30/2021 22:39 EST Infectious Disease Risk Screening Grid Cough < 2 wks of unknown origin : NO Cough > 2 weeks : NO Blood in Sputum : NO Fever or self-reported Fever : NO Rash of unknown origin : NO Headache : NO Stiff neck : NO Night Sweats : NO Unexplained Weight Loss : NO Diarrhea (3 episode per day) : NO BHAVNA TAI RN-PATIENT CARE BEDSIDE NON-EXEMPT - 01/30/2021 22:39 EST Physical contact outside US in the last 30 days : No Hospitalized in Foreign Country : No Infectious Disease History : Chicken pox/Shingles, Mononucleosis, Mumps INF Disease TB Screening Calc : 0 INF Disease Recent Travel Calc : 0 BHAVNA TAI RN-PATIENT CARE BEDSIDE NON-EXEMPT - 01/30/2021 22:39 EST Influenza Vaccine Asmt, Adult Previous Vaccines from Immunization Schedule : No qualifying data available. Influenza Immunization, Current Season : No Inactivated Flu Vaccine Contraindications : No contraindications to inactivated influenza vaccine Transplant Workup/Recent Transplant : No Order for Influenza Vaccine : Declined Vaccination BHAVNA TAI RN-PATIENT CARE [facility] NON-EXEMPT - 01/30/2021 22:39 EST Pneumococcal Vaccine Previous Vaccines from Immunization Schedule : No qualifying data available. Pneumonia Immunization Received : No Pneumococcal Risk Assessment < Age 65 : None BHAVNA TAI RN-PATIENT CARE BEDSIDE NON-EXEMPT - 01/30/2021 22:39 EST Order Details Patient Needs Meds Crushed/Liquid : No BHAVNA TAI RN-PATIENT CARE BEDSIDE NON-EXEMPT - 01/30/2021 22:39 EST Nutrition History Eating Poorly Due to Decreased Appetite : No Unplanned Weight Loss in Past 3-6 Months : No Malnutrition Screening Tool Total(mal) : 0 Malnutrition Screening Tool Risk Level : Patient not at risk BHAVNA TAI RN-PATIENT CARE BEDSIDE NON-EXEMPT - 01/30/2021 22:39 EST [place] Suicide Severity Rating Scale (C-SSRS) CSSRS Past Month Wish to be : No CSSRS Past Month Suicidal Thoughts : No CSSRS Lifetime Suicide Behavior : No Suicide Severity Rating Score : 0 Suicide Severity Rating : No Additional Care Required at this time BHAVNA TAI RN-PATIENT CARE BEDSIDE NON-EXEMPT - 01/30/2021 22:39 EST Psychosocial History Currently in Unsafe Situation : No BHAVNA TAI RN-PATIENT CARE [facility] NON-EXEMPT - 01/30/2021 22:39 EST Sleep Apnea Risk Assmt Hx of Obstructive Sleep Apnea Diagnosis : No Snore Loudly : No Tired, Fatigued, or Sleepy During Day : No Observed Stopping Breathing During Sleep : No Have/Are Being Treated for Hypertension : Yes BMI Greater Than 35 kg/m2 : No Age over 50 Years Old : No Neck Circumference Greater Than 40 cm : No Gender Male : No STOP-BANG Sleep Apnea Risk Level Score : 1 BHAVNA TAI RN-PATIENT CARE BEDSIDE NON-EXEMPT - 01/30/2021 22:39 EST Valuables and Belongings Valuables and Belongings : Clothing Clothing : Common streetwear Clothing Disposition : Bedside, With patient BHAVNA TAI RN-PATIENT CARE BEDSIDE NON-EXEMPT - 01/30/2021 22:39 EST Electronically signed by [facility], [facility] Conversion Activities Counselor Cerner at 07/08/2022 8:45 AM CDT documented in this encounter Plan of Treatment Upcoming Encounters Date Type Department Care Team (Late st Contact Info) Description 11/17/2024 9:30 AM EDT Office Visit [facility] Electrophysiology [address] [place] [address] [place] [address] [place] [address] [place] [address] documented as of this encounter Visit Diagnoses Not on filedocumented in this encounter Care Teams Professor Of Theology Relationship Specialty Start Date End Date Bernardo Bashir MD [address] [place] [address] PCP - General Family Medicine 05/13/24 Carlos Carrion MD [address] [place] [address] [place] [address] Wet Primer Powder Blender Electrophysiology 12/28/23 documented as of this encounter
--- OUTSIDE RECORDS SUMMARY | 2024-10-05 13:16 | XMS_ITS | Encounter Summary ---
Author Organization [employer] ([place], [place], [place], [place]) Address [address] [place] [address] Care Team Providers Care Well Driller Helper Name Role Phone Carlos Carrion MD Unavailable Bernardo Bashir MD Primary Care Provider [phone] Encounter Details Date Type Department Care Team (Late st Contact Info) Description 01/30/2021 Transcribed Document [facility] [place] [address] [place] [address] ProviderNehemiah MD [facility] [place] [address] Social History Tobacco Use Types [...] Conversion Note - Historical ProviderMD - 01/30/2021 4:52 PM 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 Had defib placed by Dr. tariq on Jan 16. Instructed to come to Ed for possible infection. Denies fever. Hx of CHF Primary Care Provider KULDEEPY, UNKNOWN History of Present Illness This is a 40-year-old -[place]oc[place] female that is accompanied by her father Randall Aragon to the ED for concerns of an infected pacemaker site. Her past medical history is significant for nonischemic cardiomyopathy diagnosed in August 2020. Her ejection fraction was noted to be 20 to 25%. She underwent ICD placement 01/16/[address] Carrion. She reports tenderness, erythema and lateral edema to her pacemaker site. She communicated her concerns to her provider and was sent to the ED for evaluation. She denies associated fever, chills, rashes, cough or dyspnea. She denies previous history of MRSA. She reports no immunosuppressants. She describes a Covid-19 infection this past summer with no hospitalization required. She reports that she is unvaccinated to COVID-19. Review of Systems Constitutional: No fevers, no chills, no night sweats, no acute weight changes Eye: No recent visual problems, eye discharge, eye pain or redness HEENT: No ear pain, nasal congestion, sore throat or voice changes Respiratory: No shortness of breath, no cough, no pain on breathing, no sputum production Cardiovascular: No Chest pain, no palpitations, no increasing edema, no orthopnea Gastrointestinal: No nausea, vomiting, diarrhea, no constipation or abdominal pain Genitourinary: No hematuria, dysuria, incontinence or discharge Nic/Lymph: Negative for bruising tendency, swollen lymph glands, nosebleeds Endocrine: Negative for excessive thirst, excessive hunger, excessive urination, heat or cold intolerance Musculoskeletal: No back pain, no neck pain, no acute joint pain, myalgias or sudden loss in rom Integumentary: No rash, pruritus, abrasions. Left Chest Wall pacemaker site infection. Neurologic: No weakness, numbness, syncope, frequent headaches, tremors Psychiatric: No anxiety, depression, mood changes, hallucinations Vital Signs T: 36.7 ??C HR: 84(Peripheral) RR: 19 BP: 123/80 SpO2: 98% HT: 154.94 cm WT: 95.91 kg BMI: 40 Oxygen Settings (Last) Oxygen Therapy Mode: Room air (01/30/21 12:00:00) Physical Exam General: Alert and oriented, well nourished, BMI 40, no acute distress. Eye: PERRL, EOMI, Conjunctiva appropriate. HENT: Normocephalic, normal hearing, moist oral mucosa, O/P appropriate. Neck: Supple, non-tender, no JVD, no lymphadenopathy. Lungs: Appropriate effort, Clear to auscultation, adequate excursion. Heart: regular rate, regular rhythm,+ murmur, no pedal edema, Left Chest Wall with erythema to outer lateral surgical site. Abdomen: Soft, non-tender, non-distended, normal bowel sounds. Musculoskeletal: adequate range of motion and tone, appropriate strength Skin: Skin is warm, dry and pink, no diffuse rashes, left chest wall defect, tender, erythema and mild edema. Neurologic: Awake, alert and oriented X 3, sensory intact. Psychiatric: Cooperative, appropriate mood and affect. Assessment/Plan Infected surgical site Telemetry monitoring Cardiology consult Wound cultures IV vancomycin Peak and trough Pharmacy assisting Trend inflammatory markers Nonischemic cardiomyopathy Telemetry monitoring Cardiology consult Entresto therapy Beta-beatris therapy Loop diuretic therapy Accurate I's and O's Morning labs Tobacco dependence Patient education and cessation recommendations Nicotine replacement therapy BMI 40 Nutrition education Calorie appropriate diet Complicates all aspects of care VTE Prophylaxis - Medical Enoxaparin 40 mg, SubCutaneous, Inj, P41INcs, Routine, Start 01/30/21 18:00:00 EST, 01/30/21 17:21:00 EST (PREMA ROSAS) Sequential Compression Device Start: 01/30/21 16:51:00 EST, Bilateral, Length: Knee High, While patient is in bed, Continuous Order (PREMA ROSAS) Problem List/Past Medical History Ongoing Cardiomyopathy GERD (gastroesophageal reflux disease) HTN (hypertension) Tachycardia Procedure/Surgical History bunyons removed from feet, c- sections x2, jaw surgery, rt wrsit surgery for nerve damage, tubal ligation. Home Medications (3) Active Coreg 6.25 mg, Oral, BID Entresto 24 mg-26 mg oral tablet 1 Tab, Oral, BID Lasix 20 mg, Oral, Daily Allergies penicillin Social History She lives with her 17-year-old daughter and granddaughter. She has another daughter age 20 Aj[place]. She identifies her father Randall Aragon is her POA. 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 She reports a significant smoking history of 1 pack/day for the last 10 years. Family History Mother is living at the age of 57 with congestive heart failure diabetes Father is living at the age of 58 with hypertension Immunizations COVID-19 vaccine noncompliant Additional Documentation Code Status Start: 01/30/21 16:51:00 EST, Full Code, Continuous Order documented in this encounter Plan of Treatment Upcoming Encounters Date Type Department Care Team (Late st Contact Info) Description 11/17/2024 9:30 AM EDT Office Visit [facility] Electrophysiology [address] [place] [address] [phone] [place] [address] [place] [address] [place] [id number] documented as of this encounter Visit Diagnoses Not on filedocumented in this encounter Care Teams Well Driller Helper Relationship Specialty Start Date End Date Bernardo Bashir MD [address] [place] [address] PCP - General Family Medicine 05/13/24 Carlos Carrion MD [address] [place] [address] [id number] Melter Loader Electrophysiology 12/28/23 documented as of this encounter
--- OUTSIDE RECORDS SUMMARY | 2024-10-05 13:16 | XMS_ITS | Encounter Summary ---
Author Organization [employer] ([place], [place], [place], [place]) Address [address] [place] [address] Care Team Providers Care Urban Anthropologist Name Role Phone Carlos Carrion MD Unavailable Bernardo Bashir MD Primary Care Provider [phone] Encounter Details Date Type Department Care Team (Late st Contact Info) Description 01/31/2021 Transcribed Document [facility] [place] [address] [place] [address] ProviderNehemiah MD [address] [place] [address] Social History Tobacco Use Types [...] Cerner Conversion Note - Nehemiah ProviderMD - 01/31/2021 12:30 PM PREDICTIVE MAINTENANCE SPECIALIST Patient: OSMAN ARAGON Age: 40 years Sex: Female : 1980 Associated Diagnoses: None Author: GIBSON ALVAREZ MD-INF Basic Information reason for consult: possible pacemaker infection HISTORY OF PRESENT ILLNESS 40 yo female diagnosed with CHF and severe cardiomyopathy 08/2020 in [place]. She signed out AMA from that hospitalization but she was ultimately referred to Dr Carrion for AICD and this was placed on 01/16. She was given strict instructions about activity limitations but did not comply as she is actively involved in the care of her 2 yo grandson. When she followed up Dr Carrion she was noted to have slight dehiscence at the skin and a small amount of serous drainage although the pocket itself was intact. She also c/o of increased swelling and erythema at the site The incision was glued back together and she was instructed to report to the ED for admission. She has been afebrile CRP and procalcitonin are normal. 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 Eye: Negative. Ear/Nose/Mouth/Throat: Negative. Respiratory: Negative. Cardiovascular: Tachycardia. Gastrointestinal: Negative. Genitourinary: Negative. Hematology/Lymphatics: Negative. Immunologic: Negative. Integumentary: swelling, tenderness and increased erythema at PM site. Health Status Current medications: (Selected) Inpatient Medications Ordered Benadryl: 25 mg, Oral, Q8H Core.25 mg, Oral, BID DuoNeb 0.5 mg-2.5 mg/3 mL inhalation solution: 3 mL, Nebulized Inhalation, RT_Q4H, PRN: Shortness of Breath Entresto 24 mg-26 mg oral tablet: 1 Tab, Oral, BID Habitrol 21 mg/24 hr transdermal film, extended release: 1 Patch, TransDermal, Daily MiraLax: 17 Gram, Oral, Daily, PRN: Constipation Phenergan: 6.25 mg, IntraVENous, Q6H, PRN: Nausea Senokot S: 1 Tab, Oral, BID Sodium Chloride 0.9% intravenous solution 1,000 mL: 100 mL/Hr, IntraVENous Tylenol: 650 mg, Oral, Q4H, PRN: Fever Tylenol: 650 mg, Oral, Q4H, PRN: Pain (Mild 1-3) Zofran: 4 mg, IV Push, Q4H, PRN: Nausea acetaminophen-HYDROcodone 325 mg-5 mg oral tablet: 1 Tab, Oral, Q4H, PRN: Pain (Mild 1-3) acetaminophen-HYDROcodone 325 mg-5 mg oral tablet: 2 Tab, Oral, Q4H, PRN: Pain (Moderate 4-6) furosemide: 20 mg, Oral, Daily sodium chloride 0.9% injectable solution: 10 mL, IV Push, Q8H Documented Medications Documented Entresto 24 mg-26 mg oral tablet: 1 Tab, Oral, BID, 60 Tab, 0 Refill(s) carvedilol 6.25 mg oral tablet: 1 Tab, Oral, BID, 60 Tab, 0 Refill(s) fluticasone 50 mcg/inh nasal spray: 2 [place], Nasal, Daily, PRN: Nasal Congestion, 16 Gram, 0 Refill(s) furosemide 20 mg oral tablet: 1 Tab, Oral, Daily, 0 Refill(s) levocetirizine 5 mg oral tablet: 1 Tab, Oral, QPM, 30 Tab, 0 Refill(s) terbinafine 250 mg oral tablet: 1 Tab, Oral, Daily, Prescribed on 01/07/2021 x 30 days, 0 Refill(s) Physical Examination VS/Measurements Vitals Signs (last 24 hrs) Last Charted Minimum Maximum Temp 97.7 (JAN 31:) L 96.2 (JAN 31 00:05) 98.1 (JAN 30:46) Mon HR 73 (JAN 31:) 66 (JAN 31 06:00) 76 (JAN 31 00:05) Periph HR 66 (JAN 30 22:20) 66 (JAN 30 22:20) 74 (JAN 30 20:46) Resp Rate 19 (JAN 31 05:30) 18 (JAN 30 20:46) 19 (JAN 30 22:20) SBP 128 (JAN 31:) 117 (JAN 31 05:30) 136 (JAN 30 22:20) DBP 84 (JAN 31:) 70 (JAN 31 09:24) H 93 (JAN 30 20:46) MAP 94 (JAN 31:) 91 (JAN 31 00:05) 101 (JAN 30 22:20) SpO2 100 (JAN 31:) 97 (JAN 30 20:46) 100 (JAN 30 22:20) Review / Management Results review: Labs (Last four charted values) WBC L 3.2 (JAN 31) L 4.4 (JAN 30) HB 11.7 (JAN 31) 13.2 (JAN 30) HCT 36.0 (JAN 31) 40.7 (JAN 30) Plt 250 (JAN 31) 274 (JAN 30) Na 137 (JAN 31) L 134 (JAN 30) K 3.8 (JAN 31) 4.2 (JAN 30) Cl 110 (JAN 31) 105 (JAN 30) CO2 23 (JAN 31) 27 (JAN 30) BUN 10 (JAN 31) 12 (JAN 30) Cr 0.70 (JAN 31) 0.80 (JAN 30) Glu R 95 (JAN 31) 93 (JAN 30) Ca L 8.2 (JAN 31) 9.3 (JAN 30) PT 10.2 (JAN 31) INR 1.0 (JAN 31) AST 13 (JAN 31) ALT 23 (JAN 31) ALK P 74 (JAN 31) T Bili 0.6 (JAN 31) PTN 7.1 (JAN 31) ALB L 2.9 (JAN 31) . Impression and Plan IMPRESSION --Possible infection at PM site vs trauma to incision from noncompliance with post op instructions The absence of fever and normal inflammatory markers is encouraging but it would be appropriate to treat aggressively for at least a short period in an attempt to salvage the device since the trauma alone would increase her risk for infection -- ICD placement 01/16 -- Nonischemic cardiomyopathy- evidently familial -- Tobacco abuse -- BMI 40 -- Noncompliance -- Possible vancomycin allergy -- Penicillin allergy RECOMMENDATIONS -- close observation and treatment with parenteral antibiotics over the next 4 days. If there is no evidence of infection necessitating removal of the device I will look at options for outpatient therapy Discussed with Dr Carrion documented in this encounter Plan of Treatment Upcoming Encounters Date Type Department Care Team (Late st Contact Info) Description 11/17/2024 9:30 AM EDT Office Visit [facility] Electrophysiology [address] [place] [address] Carlos Carrion MD [address] [place] [address] [address] [place] [phone] documented as of this encounter Visit Diagnoses Not on filedocumented in this encounter Care Teams Urban Anthropologist Relationship Specialty Start Date End Date Bernardo Bashir MD [address] [place] [address] PCP - General Family Medicine 05/13/24 Carlos Carrion MD [address] [place] [address] [address] Nurse Researcher Electrophysiology 12/28/23 documented as of this encounter
--- OUTSIDE RECORDS SUMMARY | 2024-10-05 13:16 | XMS_ITS | Encounter Summary ---
Author Organization [employer] ([place], [place], [place], [place]) Address [address] [place] [address] Care Team Providers Care Barrel Endshake Adjuster Name Role Phone Carlos Carrion MD Unavailable Bernardo Bashir MD Primary Care Provider [phone] Encounter Details Date Type Department Care Team (Late st Contact Info) Description 01/31/2021 Transcribed Document [facility] Radiology [address] [place] [address] Rupa Ardon MD [address] [place] [address] [place] [address] Social History Tobacco Use Types Packs/Day Years Used Date Smoking Tobacco: Never Assessed Comments Unknown Sex and Gender Information Value Date Recorded Sex Assigned at Female 09/17/2021 2:29 PM CDT Legal Sex Female 2:29 PM CDT Gender Identity Female 09/17/2021 2:29 PM CDT Sexual Orientation Not on file documented as of this encounter Miscellaneous Notes * Cerner Conversion Note - Rupa Ardon MD - 01/31/2021 3:00 PM EST Patient: OSMAN ARAGON Age: 40 Years Sex: Female : 1980 Subjective Date of encounter 01/31/21 Patien tis awake and alert Denies pain Has some discomfort at PPM site No fever No nausea Vital Signs T: 36.5 ??C TMIN: 35.7 ??C TMAX: 36.8 ??C HR: 73(Monitored) RR: 19 BP: 128/84 SpO2: 100% HT: 154.94 cm WT: 95.91 kg BMI: 40 Oxygen Settings (Last) Oxygen Therapy Mode: Room air (01/31/21 09:24:00) Intake & Output Totals Last 24 Hours (7a-7a) Input Total: 900 mL Output Total: 0 mL Balance: 900 mL Physical Exam General: Alert and oriented, well nourished, no acute distress. Eye: PERRL, EOMI, normal conjuctiva HENT: Normocephalic, , moist oral mucosa, no scleral icterus, Neck: Supple, non-tender Chest: Has PPM pocket on left without erythema minimal serous drainage noted. Lungs: Clear to auscultation , non-labored respiration Heart: Normal rate, regular rhythm, no edema Abdomen: Soft, non-tender, non-distended, normal bowel sounds, Musculoskeletal: no tenderness or swelling Skin: Skin is warm, dry and pink, no rashes or lesions Psychiatric: Cooperative, appropriate mood and affect Neurologic: Awake, alert, and oriented Assessment/Plan PPM pocket potential infection with recent insertion on 01/16 Patient has had suboptimal compliance with activity restrictions. Had been evaluated in office and had serous drainage and on emperic abx. ID following Plan to watch closely with IV abx and then based on clinical course evaluate options Nonischemic cardiomyopathy Entresto therapy/coreg and lasix and continue Tobacco dependence Patient education and cessation recommendations Nicotine replacement therapy Morbid obesity BMI 40 Calorie appropriate diet Complicates all aspects of care DVT prophylaxis with pneumatic boots Disposition:patient had recent PPM insertion on 01/16 with concern for PPM site infection. On emperic abx and ID followng Plan for continued IV abx next 4 days to determine course and outpt options Discussed with patient and time spent with above 28 minutes. Medications acetaminophen-HYDROcodone 325 mg-5 mg oral tablet, 1 Tab, Oral, Q4H, PRN acetaminophen-HYDROcodone 325 mg-5 mg oral tablet, 2 Tab, Oral, Q4H, PRN Benadryl, 25 mg= 1 Tab, Oral, Q8H Coreg, 6.25 mg= 1 Tab, Oral, BID DAPTOmycin + Sodium Chloride 0.9% intravenous solution 50 mL DuoNeb 0.5 mg-2.5 mg/3 mL inhalation solution, 3 mL, Nebulized Inhalation , RT_Q4H, PRN Entresto 24 mg-26 mg oral tablet, 1 Tab, Oral, BID furosemide, 20 mg= 1 Tab, Oral, Daily Habitrol 21 mg/24 hr transdermal film, extended release, 1 Patch, TransDermal, Daily MiraLax, 17 Gram= 1 Packet, Oral, Daily, PRN Phenergan, 6.25 mg= 0.25 mL, IntraVENous, Q6H, PRN Senokot S, 1 Tab, Oral, BID sodium chloride 0.9% injectable solution, 10 mL, IV Push, Q8H Sodium Chloride 0.9% intravenous solution 1,000 mL, 1000 mL, IntraVENous Tylenol, 650 mg= 2 Tab, Oral, Q4H, PRN Tylenol, 650 mg= 2 Tab, Oral, Q4H, PRN Zofran, 4 mg= 2 mL, IV Push, Q4H, PRN Lab Results Test Name Test Result Date/Time Sodium Level 137 mmol/L 01/31/2021 06:03 EST Sodium Level 134 mmol/L (Low) 01/30/2021 17:04 EST Potassium Level 3.8 mmol/L 01/31/2021 06:03 EST Potassium Level 4.2 mmol/L 01/30/2021 17:04 EST Chloride Level 110 mmol/L 01/31/2021 06:03 EST Chloride Level 105 mmol/L 01/30/2021 17:04 EST Carbon Dioxide Level 23 mmol/L 01/31/2021 06:03 EST Carbon Dioxide Level 27 mmol/L 01/30/2021 17:04 EST Anion Gap 8 (Low) 01/31/2021 06:03 EST Anion Gap 6 (Low) 01/30/2021 17:04 EST Glucose Level 95 mg/dL 01/31/2021 06:03 EST Glucose Level 93 mg/dL 01/30/2021 17:04 EST Blood Urea Nitrogen 10 mg/dL 01/31/2021 06:03 EST Blood Urea Nitrogen 12 mg/dL 01/30/2021 17:04 EST Creatinine Level 0.70 mg/dL 01/31/2021 06:03 EST Creatinine Level 0.80 mg/dL 01/30/2021 17:04 EST eGFR >60 mL/min/1.73m2 01/31/2021 06:03 EST eGFR >60 mL/min/1.73m2 01/30/2021 17:04 EST eGFR NonAfrican >60 mL/min/1.73m2 01/31/2021 06:03 EST eGFR NonAfrican >60 mL/min/1.73m2 01/30/2021 17:04 EST Bun/Creatinine 14.3 01/31/2021 06:03 EST Bun/Creatinine 15.0 01/30/2021 17:04 EST Calcium Level 8.2 mg/dL (Low) 01/31/2021 06:03 EST Calcium Level 9.3 mg/dL 01/30/2021 17:04 EST Protein Total 7.1 Gram/dL 01/31/2021 06:03 EST Albumin Level 2.9 Gram/dL (Low) 01/31/2021 06:03 EST Globulin 4.2 Gram/dL 01/31/2021 06:03 EST A/G Ratio 0.7 (Low) 01/31/2021 06:03 EST Bilirubin Total 0.6 mg/dL 01/31/2021 06:03 EST Alk Phos 74 Units/Liter 01/31/2021 06:03 EST AST 13 Units/Liter 01/31/2021 06:03 EST ALT 23 Units/Liter 01/31/2021 06:03 EST Magnesium Level 2.0 mg/dL 01/31/2021 06:03 EST Hgb A1C 4.7 % 01/31/2021 06:03 EST CRP <0.29 mg/dL 01/30/2021 17:38 EST eAVG Glucose 88 mg/dL 01/31/2021 06:03 EST ProBNP 286 pg/mL (High) 01/30/2021 17:38 EST WBC 3.2 K/uL (Low) 01/31/2021 06:03 EST WBC 4.4 K/uL (Low) 01/30/2021 17:04 EST RBC 4.21 Million/uL 01/31/2021 06:03 EST RBC 4.72 Million/uL 01/30/2021 17:04 EST Hgb 11.7 g/dL 01/31/2021 06:03 EST Hgb 13.2 g/dL 01/30/2021 17:04 EST Hct 36.0 % 01/31/2021 06:03 EST Hct 40.7 % 01/30/2021 17:04 EST MCV 85.5 fL 01/31/2021 06:03 EST MCV 86.2 fL 01/30/2021 17:04 EST MCH 27.8 pg 01/31/2021 06:03 EST MCH 28.0 pg 01/30/2021 17:04 EST MCHC 32.5 Gram/dL 01/31/2021 06:03 EST MCHC 32.4 Gram/dL 01/30/2021 17:04 EST Platelet Count 250 K/uL 01/31/2021 06:03 EST Platelet Count 274 K/uL 01/30/2021 17:04 EST MPV 10.1 fL 01/31/2021 06:03 EST MPV 9.9 fL 01/30/2021 17:04 EST RDW 13.3 % 01/31/2021 06:03 EST RDW 13.3 % 01/30/2021 17:04 EST Neut % 53.9 % 01/30/2021 17:04 EST Neut # 2.40 K/uL 01/30/2021 17:04 EST Lymph % 30.6 % 01/30/2021 17:04 EST Lymph # 1.36 x10(3)/uL 01/30/2021 17:04 EST [place] % 11.5 % (High) 01/30/2021 17:04 EST [place] # 0.51 K/uL 01/30/2021 17:04 EST Eos % 3.4 % 01/30/2021 17:04 EST Eos # 0.15 x10(3)/uL 01/30/2021 17:04 EST Baso % 0.4 % 01/30/2021 17:04 EST Baso # 0.02 x10(3)/uL 01/30/2021 17:04 EST Neutrophil Percent Man 31 % (Low) 01/31/2021 06:03 EST ANC # 1 K/uL 01/31/2021 06:03 EST Lymph Percent Man 47 % (High) 01/31/2021 06:03 EST ALYC # 2 K/uL 01/31/2021 06:03 EST [place] Percent Man 18 % (High) 01/31/2021 06:03 EST Eos Percent Man 4 % (High) 01/31/2021 06:03 EST Baso Percent Man 0 % 01/31/2021 06:03 EST RBC Morphology Normal 01/31/2021 06:[address] Estimate Adequate 01/31/2021 06:03 EST Sed Rate Auto 22 mm/Hr (High) 01/31/2021 06:03 EST Slide Review Add Diff 01/31/2021 06:03 EST Slide Review No 01/30/2021 17:04 EST IG# .01 x10(3)/uL 01/30/2021 17:04 EST IG% 0.20 % 01/30/2021 17:04 EST PT 10.2 Second(s) 01/31/2021 06:03 EST INR 1.0 01/31/2021 06:03 EST Procalcitonin <0.25 ng/mL 01/31/2021 06:03 EST Procalcitonin <0.25 ng/mL 01/30/2021 17:04 EST TSH 1.570 mcInt Units/mL 01/31/2021 06:03 EST SARS-CoV-2 (COVID19 PCR) Negative2 01/30/2021 16:58 EST documented in this encounter Plan of Treatment Upcoming Encounters Date Type Department Care Team (Late st Contact Info) Description 11/17/2024 9:30 AM EDT Office Visit [facility] Electrophysiology [address] [place] [phone] Carlos Carrion MD [address] [place] [address] documented as of this encounter Visit Diagnoses Not on filedocumented in this encounter Care Teams Barrel Endshake Adjuster Relationship Specialty Start Date End Date Bernardo Bashir MD [address] [place] [address] PCP - General Family Medicine 05/13/24 Carlos Carrion MD [address] [place] [address] [address] Anatomical Embalmer Electrophysiology 12/28/23 documented as of this encounter
--- OUTSIDE RECORDS SUMMARY | 2024-10-05 13:16 | XMS_ITS | Encounter Summary ---
Author Organization [email or web address] ([place], [place], [place], [place]) Address [address] [place] [address] Care Team Providers Care Polarity Tester Name Role Phone Carlos Carrion MD Unavailable Bernardo Bashir MD Primary Care Provider [phone] Encounter Details Date Type Department Care Team (Late st Contact Info) Description 01/30/2021 Transcribed Document [facility] Family Medicine [address] [place] [address] ProviderNehemiah MD [address] [place] [address] Social History Tobacco Use Types [...] - Nehemiah ProviderMD - 01/30/2021 5:21 PM REHABILITATION NURSE Pain Assessment Entered On: 02/02/2021 9:36 EST Performed On: 02/02/2021 10:06 EST by Sara Yip RN-OCTAVIO Intervention Information: acetaminophen-HYDROcodone Performed by Sara Yip RN-OTCAVIO on 02/02/2021 09:06:00 EST acetaminophen-HYDROcodone,2Tab Oral,Pain (Moderate 4-6) Pain Assessment Pain Assessment : Follow-up assessment Pain Improved by Intervention : Yes Sara Yip RN-ROUNDING - 02/02/2021 9:36 EST Electronically signed by Mitra Ragsdale Conversion Perforating Machine Operator Cerner at 07/13/2022 1:09 PM CDT documented in this encounter Plan of Treatment Upcoming Encounters Date Type Department Care Team (Late st Contact Info) Description 11/17/2024 9:30 AM EDT Office Visit [facility] Electrophysiology [address] [place] [phone] Carlos Carrion MD [address] [place] [address] [phone] documented as of this encounter Visit Diagnoses Not on filedocumented in this encounter Care Teams Polarity Tester Relationship Specialty Start Date End Date Bernardo Bashir MD [address] [place] [address] PCP - General Family Medicine 05/13/24 Carlos Carrion MD [address] [place] [address] [id number] Internal Affairs Commander Electrophysiology 12/28/23 documented as of this encounter
--- OUTSIDE RECORDS SUMMARY | 2024-10-05 13:16 | XMS_ITS | Encounter Summary ---
Author Organization [employer] ([place], [place], [place], [place]) Address [address] [place] [address] Care Team Providers Care Fruit Receiver Name Role Phone Carlos Carrion MD Unavailable Bernardo Bashir MD Primary Care Provider [phone] Encounter Details Date Type Department Care Team (Late st Contact Info) Description 01/30/[address] [facility] [place] Family Medicine [address] [place] [address] ProviderNehemiah MD [address] [place] [address] Social History Tobacco Use Types [...] Conversion Note - Nehemiah ProviderMD - 01/30/2021 11:57 AM COMPUTER SUPPORT SPECIALIST INSTRUCTOR ED Assessment Entered On: 01/30/2021 20:59 EST Performed On: 01/30/2021 20:58 EST by SUMIT LUGO RN ED Quick Look Assessment Level of Consciousness : Alert, Awake SUMIT LUGO RN - 01/30/2021 20:58 EST ED General-Functional Assess Information Obtained From : Patient Communication Barrier : None Primary Language : Divehi Any Spiritual/Cultural Needs or Requests : No Currently in Unsafe Situation : No SUMIT LUGO RN - 01/30/2021 20:58 EST Social Habits Smoking Status : Never (less than 100 in lifetime; none in last 30 days) Smokeless Tobacco Status : Never Desires Tobacco Cessation Calc : 0 [facility], [facility], [facility] 01/30/2021 20:58 EST Social History (As Of: 01/30/2021 20:59:40 EST) EENT Assessment EENT Assessment WDL : [facility], [facility] 01/30/2021 20:58 EST Cardiovascular ASMT, ED Cardiovascular Assessment WDL : [facility], [facility] 01/30/2021 20:58 EST Pulses Grid Brachial Pulse, Left : 2+ normal Brachial Pulse, Right : 2+ normal Carotid Pulse, Left : 2+ normal Carotid Pulse, Right : 2+ normal Dorsalis Pedis Pulse, Left : 2+ normal Dorsalis Pedis Pulse, Right : 2+ normal Femoral Pulse, Left : 2+ normal Femoral Pulse, Right : 2+ normal Popliteal Pulse, Left : 2+ normal Popliteal Pulse, Right : 2+ normal Posterior Tibial Pulse, Left : 2+ normal Posterior Tibial Pulse, Right : 2+ normal Radial Pulse, Left : 2+ normal Radial Pulse, Right : 2+ normal SUMIT LUGO [facility] 01/30/2021 20:58 EST Respiratory Respiratory Assessment WDL : [facility] 01/30/2021 20:58 EST Breath Sounds Assessment Grid All Lobes Breath Sounds : Clear ELAN : Clear LLL : Clear RUL : Clear RML : Clear RLL : Clear SUMIT LUGO [facility] 01/30/2021 20:58 EST Gastrointestinal ED Gastrointestinal Assessment WDL : [facility] SUMIT LUGO [facility] 01/30/2021 20:58 EST Genitourinary Assessment, ED Genitourinary Assessment WDL : [facility] SUMIT LUGO [facility] 01/30/2021 20:58 EST Musculoskeletal Musculoskeletal Assessment WDL : [facility] SUMIT LUGO 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 01/30/2021 20:58 EST Neurologic ASMT, ED Neurologic Assessment WDL : [facility] Neurological Symptoms : None Level of Consciousness : Alert, Awake SUMIT LUGO, FATOU - 01/30/2021 20:58 EST documented in this encounter Plan of Treatment Upcoming Encounters Date Type Department Care Team (Late st Contact Info) Description 11/17/2024 9:30 AM EDT Office Visit [facility] Electrophysiology [address] [place] [phone] Carlos Carrion MD [address] [place] [address] [place] [address] documented as of this encounter Visit Diagnoses Not on filedocumented in this encounter Care Teams Fruit Receiver Relationship Specialty Start Date End Date Bernardo Bashir MD [address] [place] [address] PCP - General Family Medicine 05/13/24 Carlos Carrion MD [address] [place], [place] [id number] Drop Wire Stringer Electrophysiology 12/28/23 documented as of this encounter
--- OUTSIDE RECORDS SUMMARY | 2024-10-05 13:16 | XMS_ITS | Encounter Summary ---
Author Organization [employer] ([place], [place], [place], [place]) Address [address] [place] [address] Care Team Providers Care Psychiatric Attendant Name Role Phone Carlos Carrion MD Unavailable Bernardo Bashir MD Primary Care Provider [phone] Encounter Details Date Type Department Care Team (Late st Contact Info) Description 01/30/2021 Transcribed Document [facility] [place] Family Medicine [address] [place] [address] ProviderNehemiah MD [address] [place] [address] Social History Tobacco Use Types [...] - Historical ProviderMD - 01/30/2021 11:57 AM WOOL BATTING WORKER Broset Violence Assessment Entered On: 01/30/2021 20:59 EST Performed On: 01/30/2021 20:58 EST by SUMIT LUGO RN Broset Violence Assessment Broset Violence Checklist of Symptoms : None Broset Violence Symptoms Subtotal : 0 Broset Violence Symptoms Indicator : Low risk (0) Broset Interventions : Sharon precautions for safety used SUMIT LUGO RN - 01/30/2021 20:58 EST Electronically signed by Melyssa [facility] Conversion Statistical Consultant Cerner at 07/08/2022 9:06 AM CDT documented in this encounter Plan of Treatment Upcoming Encounters Date Type Department Care Team (Late st Contact Info) Description 11/17/2024 9:30 AM EDT Office Visit [facility] Electrophysiology [address] [place] [address] [place] [address] [place] [address] [id number] documented as of this encounter Visit Diagnoses Not on filedocumented in this encounter Care Teams Psychiatric Attendant Relationship Specialty Start Date End Date Bernardo Bashir MD [address] [place] [address] PCP - General Family Medicine 05/13/24 Carlos Carrion MD [address] [place] [id number] Splitting Machine Operator Electrophysiology 12/28/23 documented as of this encounter
[2024-10-05 13:17] VITALS: BP 152/94; PULSE 80; RESP 15; TEMP 36.6; O2SAT 99; BMI 38.9
--- OUTSIDE RECORDS SUMMARY | 2024-10-05 13:17 | XMS_ITS | Encounter Summary ---
Author Organization [employer] ([place], [place], [place], [place]) Address [address] [place] [address] Care Team Providers Care Lead Business Systems Analyst Name Role Phone Sukhwinder Carrion MD Unavailable Bernardo Bashir MD Primary Care Provider [phone] Encounter Details Date Type Department Care Team (Late st Contact Info) Description 02/04/2021 Transcribed Document [facility] [place] Family Medicine [address] [place] [address] ProviderNehemiah MD [facility] [place] [address] Social History Tobacco Use Types [...] Cerner Conversion Note - Nehemiah ProviderMD - 02/04/2021 10:15 AM CONTRACTING OFFICER Patient: OSMAN ARAGON Age: 40 years Sex: Female : 1980 Associated Diagnoses: None Author: SUKHWINDER CARRION MD-CAR Subjective NAD, patient sleeping Health Status Allergies: Allergic Reactions (Selected) Severity Not Documented Penicillin- No reactions were documented. Vancomycin- No reactions were documented., Allergies (1) Active Reaction vancomycin None Documented Current medications: (Selected) Inpatient Medications Ordered Core.25 mg, Oral, BID DAPTOmycin + Sodium Chloride 0.9% intravenous solution 50 mL: 500 mg, 10 mL, 120 mL/Hr, IV Piggyback, [id number] DuoNeb 0.5 mg-2.5 mg/3 mL inhalation solution: 3 mL, Nebulized Inhalation, RT_Q4H, PRN: Shortness of Breath Entresto 24 mg-26 mg oral tablet: 1 Tab, Oral, BID Habitrol 21 mg/24 hr transdermal film, extended release: 1 Patch, TransDermal, Daily Melatonin: 3 mg, Oral, At Bedtime MiraLax: 17 Gram, Oral, Daily, PRN: Constipation Phenergan: 6.25 mg, IntraVENous, Q6H, PRN: Nausea Senokot S: 1 Tab, Oral, BID Tylenol: 650 mg, Oral, Q4H, PRN: Fever Tylenol: 650 mg, Oral, Q4H, PRN: Pain (Mild 1-3) Zofran: 4 mg, IV Push, Q4H, PRN: Nausea acetaminophen-HYDROcodone 325 mg-5 mg oral tablet: 1 Tab, Oral, Q4H, PRN: Pain (Mild 1-3) acetaminophen-HYDROcodone 325 mg-5 mg oral tablet: 2 Tab, Oral, Q4H, PRN: Pain (Moderate 4-6) fluticasone 50 mcg/inh nasal spray: 100 mcg, 2 [place], Nasal, Daily, PRN: Nasal Congestion furosemide: 20 mg, Oral, Daily sodium chloride 0.9% injectable solution: 10 mL, IV Push, Q8H Documented Medications Documented Entresto 24 mg-26 mg oral tablet: 1 Tab, Oral, BID, 60 Tab, 0 Refill(s) carvedilol 6.25 mg oral tablet: 1 Tab, Oral, BID, 60 Tab, 0 Refill(s) fluticasone 50 mcg/inh nasal spray: 2 [place], Nasal, Daily, PRN: Nasal Congestion, 16 Gram, 0 Refill(s) furosemide 20 mg oral tablet: 1 Tab, Oral, Daily, 0 Refill(s) levocetirizine 5 mg oral tablet: 1 Tab, Oral, QPM, 30 Tab, 0 Refill(s) terbinafine 250 mg oral tablet: 1 Tab, Oral, Daily, Prescribed on 01/07/2021 x 30 days, 0 Refill(s), Home Medications (6) Active carvedilol 6.25 mg oral tablet 6.25 mg = 1 Tab, Oral, BID Entresto 24 mg-26 mg oral tablet 1 Tab, Oral, BID fluticasone 50 mcg/inh nasal spray 2 [place], PRN, Nasal, Daily furosemide 20 mg oral tablet 20 mg = 1 Tab, Oral, Daily levocetirizine 5 mg oral tablet 5 mg = 1 Tab, Oral, QPM terbinafine 250 mg oral tablet 250 mg = 1 Tab, Oral, Daily , Medications (17) Active Scheduled: (8) #NaCl 0.9% *FLUSH* inj 10 mL 10 mL, IV Push, Q8H carvedilol 6.25 mg tab 6.25 mg 1 Tab, Oral, BID DAPTOmycin + NaCl 0.9% 50 mL 500 mg 10 mL, IV Piggyback, [id number] furosemide 20 mg tab 20 mg 1 Tab, Oral, Daily melatonin 3 mg tab 3 mg 1 Tab, Oral, At Bedtime nicotine 21 mg/24 hr patch 1 Patch, TransDermal, Daily sacubitril-valsartan 24 mg-26 mg tab 1 Tab, Oral, BID senna/docusate 8.6/50 mg tab 1 Tab, Oral, BID Continuous: (0) PRN: (9) acetaminophen 325 mg tab 650 mg 2 Tab, Oral, Q4H acetaminophen 325 mg tab 650 mg 2 Tab, Oral, Q4H acetaminophen/HYDROcodone 325/5 mg tab 1 Tab, Oral, Q4H acetaminophen/HYDROcodone 325/5 mg tab 2 Tab, Oral, Q4H albuterol-ipratropium inh 3 mL 3 mL, Nebulized Inhalation, RT_Q4H fluticasone 0.05% nasal spray 100 mcg 2 [place], Nasal, Daily ondansetron 4 mg/2 mL inj 4 mg 2 mL, IV Push, Q4H polyethylene glycol 3350 pwd 17 g pkt 17 Gram 1 Packet, Oral, Daily promethazine 25 mg/1 mL inj 6.25 mg 0.25 mL, IntraVENous, Q6H Problem list: All Problems Cardiomyopathy / SNOMED CT 060140233 / Confirmed Tachycardia / SNOMED CT 8662391 / Confirmed HTN (hypertension) / SNOMED CT 7559276350 / Confirmed GERD (gastroesophageal reflux disease) / SNOMED CT 193037049 / Confirmed, Active Problems (4) Cardiomyopathy GERD (gastroesophageal reflux disease) HTN (hypertension) Tachycardia Objective Intake and Output 24 hour intake, 24 hour output VS/Measurements Vitals Signs (last 24 hrs) Last Charted Minimum Maximum Temp 97.6 (FEB 04 05:54) 97.6 (FEB 04 05:54) 98.3 (FEB 03:) Mon HR 78 (FEB 04 05:54) 66 (FEB 04 01:40) 88 (FEB 03:) Resp Rate 18 (FEB 04:54) 16 (FEB 03:) 18 (FEB 03 20:48) SBP 111 (FEB 04 05:54) 95 (FEB 04 01:40) 128 (FEB 03 14:00) DBP 72 (FEB 04 05:54) L 59 (FEB 04 01:40) H 93 (FEB 03:) MAP 83 (FEB 04 05:54) 71 (FEB 04 01:40) 100 (FEB 03:) SpO2 96 (FEB 04:54) 96 (FEB 03:48) 96 (FEB 03:48) General: Alert and oriented. Eye: Pupils are equal, round and reactive to light. HENT: Normocephalic. Neck: Supple, Non-tender, No carotid bruit, No jugular venous distention. Respiratory: Lungs are clear to auscultation, Respirations are non-labored. Cardiovascular: Normal rate, Regular rhythm, No murmur, Good pulses equal in all extremities. Jugular Veins: Not distended. Gastrointestinal: Soft, Non-tender, Non-distended, Normal bowel sounds. Musculoskeletal: Normal range of motion. Integumentary: Warm, Dry, [place]. Neurologic: Alert, Oriented. Psychiatric: Cooperative, Appropriate mood & affect Results Review Telemetry sinus rhythm, heart rate 72 FEB 04 08:16 138 108 14 / 89 4.6 24 0.80 \ Telemetry/ECG I personally reviewed the last 24 hour telemetry that show normal sinus rhythm Cardiac echo - 09/03/2020 LVEF 20-25% with a severely dilated left ventricle. Elevated LV filling pressures Mildly dilated left atrium Mild mitral regurgitation Cardiac Markers (Current Encounter/Past 24 Hours) No Cardiac Marker Results Found (Past 24 Hours) No Radiology Results Found Impression and Plan IMPRESSION: *Acute post-operative drainage hopefully superficial ICD implant on 01/16/2021, ID consulted for their input *hypertension *Nonischemic Dilated Cardiomyopathy continue medical management *Chronic systolic heart failure, ACC/AHA stage C *ICD for primary prevention PLAN: 02/04/2021 Labs and telemetry reviewed. Would recommend keeping Potassium >4.0 and Magnesium >2.0. Blood cultures have no growth after 3 days. Continue IV antibiotics per ID recommendation. OK to transition to oral antibiotics from an EP standpoint. If no other concerns, would be OK for patient to be discharged following blood cultures being finalized and SOUND and ID gives go ahead. ICD VF zone increased to 240 beat per minute because of the patient's concern of inappropriate shocks 02/01/2021 Labs and telemetry reviewed. Potassium and magnesium replaced. Would recommend keeping Potassium >4.0 and Magnesiuim >2.0. Continue IV antibiotics through the weekend per ID. Blood cultures pending. 01/31/2021 Labs and telemetry reviewed. Potassium replaced. Would recommend keeping Potassium > 4.0 and Magnesiuim > 2.0. Discussion with Dr. Saleem with infectious disease and agree with aggressive antibiotic treatment. Blood cultures drawn. Electronically signed by Melyssa, [facility] Conversion Rail Car Driver Cerner at 07/08/2022 8:59 AM CDT documented in this encounter Plan of Treatment Upcoming Encounters Date Type Department Care Team (Late st Contact Info) Description 11/17/2024 9:30 AM EDT Office Visit [facility] Electrophysiology [address] [place] [phone] Sukhwinder Carrion MD [address] [place] [address] [address] documented as of this encounter Visit Diagnoses Not on filedocumented in this encounter Care Teams Lead Business Systems Analyst Relationship Specialty Start Date End Date Bernardo Bashir MD [address] [place] [address] PCP - General Family Medicine 05/13/24 Sukhwinder Carrion MD [address] [place] [address] [address] Cushion Assembler Electrophysiology 12/28/23 documented as of this encounter
--- OUTSIDE RECORDS SUMMARY | 2024-10-05 13:17 | XMS_ITS | Encounter Summary ---
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 [facility] [address] OSMAN ARAGON JUSTEN :1980 Visit Time:01/30/2021 Your Visit Summary Your Care Team Admitting Physician - ОЛЕГ TERRY MD-INT Attending Physician - GRACE ARREOLA MD-INT Primary Care Physician - KLAUDIA, UNKNOWN Referring Physician - KLAUDIA, SELF REFERRED Your Diagnosis Infection and inflammatory reaction due to other cardiac and vascular devices, implants and grafts, initial encounter, Infection and inflammatory reaction due to other cardiac and vascular devices, implants and grafts, initial encounter, Pacemaker infection Medical screening exam Wound reevaluation with or without suture removal These Are Your Goals No qualifying data available. Discharge Vitals Temperature 36.6 ??C Heart Rate (Monitored) 80 Blood Pressure 101/68 What to do next Instructions From Your Care Team Please STOP taking Terbinafine. Discharge Activity: Please continue with precautions for the pacemaker as advised by , Discharge Activity: Activity as tolerated Diet: Discharge Diet: Heart healthy diet Follow-Up Appointments Follow Up with Follow up with specialist When Within 2 weeks Comments on 02/18/21 Office to call with appoint/instructions Where: Follow Up with Follow up with primary care provider When Within [address] Bashir Call for follow up appointment Where: Follow Up with Follow up with specialist When Within 1 week Comments Call for follow up appointment Where: Medications What How Much When Instructions Next Dose clindamycin (clindamycin 300 mg oral capsule) 1 Capsule(s) Oral Every 8 Hours Duration: 10 Day(s) Pickup at [facility] today saccharomyces boulardii lyo (Florastor 250 mg oral capsule) 1 Capsule(s) Oral Every Day Duration: 5 Day(s) Pickup at [facility] today carvedilol (carvedilol 6.25 mg oral tablet) 1 Tablet(s) Oral Two Times A Day today fluticasone nasal (fluticasone 50 mcg/ inh nasal spray) 2 [place](s) Nasal Every Day as needed for Nasal Congestion as needed for nasal congestion every day furosemide (furosemide 20 mg oral tablet) 1 Tablet(s) Oral Every Day today levocetirizine (levocetirizine 5 mg oral tablet) 1 Tablet(s) Oral Every Evening today sacubitril-valsartan (Entresto 24 mg-26 mg oral tablet) 1 Tablet(s) Oral Two Times A Day today Pharmacy Information [facility]: [address] [place], [place] [id number] [phone] Take your medications faithfully. Do NOT skip medication. Do NOT stop taking medications without the direction of a physician. Carry a list of your medications with you at all times, and take this medication list with you to your first follow up visit. Report any side effects. Avoid herbal remedies unless discussed with your physician. As part of your treatment plan, your physician may have prescribed a limited course of a controlled substance. This medication may be given to help people with moderate or severe pain or for other medical conditions, but there are risks involved with treatment. Common side effects may include nausea, constipation, drowsiness, sweating, itching, dry mouth, and rash. More serious side effects may include cognitive and motor impairment, like problems with thinking, concentrating, alertness, and movement (e.g. slowed reflexes), and driving and operating heavy machinery can be dangerous. It is important for you to talk to your physician if you have these side effects or questions. These controlled substances can produce physical dependence and be habit-forming if taken for an extended period of time, which means that the body has gotten used to them and may experience withdrawal symptoms if they are abruptly stopped. Withdrawal symptoms can include runny nose, sweating, goose bumps, diarrhea, abdominal cramping, rapid heartbeat, difficulty sleeping, and nervousness. Please dispose of unused and medications per your retail pharmacy guidance. Allergies penicillin vancomycin Immunizations This Visit No Immunizations Found Education Materials Pacemaker Implantation, Adult, Care After This sheet gives you information about how to care for yourself after your procedure. Your health care provider may also give you more specific instructions. If you have problems or questions, contact your health care provider. What can I expect after the procedure? After the procedure, it is common to have: ??? Mild pain. ??? Slight bruising. ??? Some swelling over the incisions. ??? A slight bump over the skin where the device was placed (if it was implanted in the upper chest area). Sometimes, it is possible to feel the device under the skin. This is normal. Follow these instructions at home: Medicines ??? Take oexs-dou-vplsblb and prescription medicines only as told by your health care provider. ??? If you were prescribed an antibiotic medicine, take it as told by your health care provider. Do not stop taking the antibiotic even if you start to feel better. ??? Ask your health care provider if the medicine prescribed to you requires you to avoid driving or using machinery. Incision site care ??? Do not remove the bandage (dressing) on your chest until you are told to do so by your health care provider. ??? After your dressing is removed, you may see pieces of tape called skin adhesive strips over the incision site. Let the strips fall off on their own. ??? Check your incision area every day for signs of infection. Check for: ? More redness, swelling, or pain. ? Fluid or blood. ? Warmth. ? Pus or a bad smell. ??? Do not use lotions or ointments near the incision site unless you are told to do so. ??? Keep the incision area clean and dry for 2???3 days after the procedure or as told by your health care provider. It takes several weeks for the incision site to completely heal. ??? Women may want to place a small pad over the incision site to protect it from their bra strap. ??? Do not take baths, swim, or use a hot tub for 7???10 days or until your health care provider approves. Ask your health care provider if you may take showers. You may only be allowed to take sponge baths. Activity ??? If you were given a medicine to help you relax (sedative) during the procedure, it can affect you for several hours. Do not drive or operate machinery until your health care provider says that it is safe. ??? Return to your normal activities as told by your health care provider. Ask your health care provider what activities are safe for you. ??? Do not lift anything that is heavier than 10 lb (4.5 kg), or the limit that you are told, until your health care provider says that it is safe. ??? Avoid sudden jerking, pulling, or chopping movements that pull your upper arm far away from your body. Avoid these movements for at least 6 weeks or as long as told by your health care provider. ??? Do not lift your upper arm above your shoulders for at least 6 weeks or as long as told by your health care provider. This includes activities like tennis, golf, or swimming. ??? You may go back to work when your health care provider says it is okay. Electricity and magnetic ace ??? Avoid places or objects that have a strong electric or magnetic field, including: ? Airport security checkpoints. When at the airport, let officials know that you have a pacemaker. Carry your pacemaker ID card. ? Metal detectors. If you must pass through a metal detector, walk through it quickly. Do not stop under the detector or stand near it. ? Power plants. ? Large electrical generators. ? Radiofrequency transmission towers, such as mobile phone and radio towers. ??? Do not use amateur radio equipment or electric welding torches. If you are unsure of whether something is safe to use, ask your health care provider. Some devices may be safe to use if you hold them at least 1 ft (0.3 m) from your pacemaker. These devices may include power tools, lawn mowers, and speakers. ??? When using your mobile phone, hold it to the ear opposite the pacemaker. Do not leave your mobile phone in a pocket over the pacemaker. Long-term care ??? You may be shown how to transfer data from your pacemaker through the phone to your health care provider. ??? Always let all health care providers, including dentists, know about your pacemaker before you have any medical procedures or tests. ??? Wear a medical ID bracelet or necklace stating that you have a pacemaker. ??? Carry a pacemaker ID card with you at all times. ??? Your pacemaker battery will last for 5???15 years. Your health care provider will do routine checks to know when the battery is starting to run down. When this happens, the pacemaker will need to be replaced. General instructions ??? Do not use any products that contain nicotine or tobacco, such as cigarettes, e-cigarettes, and chewing tobacco. These can delay incision healing after surgery. If you need help quitting, ask your health care provider. ??? Follow instructions from your health care provider about eating or drinking restrictions. ??? Weigh yourself every day. If you suddenly gain weight, fluid may be building up in your body. ??? Keep all follow-up visits as told by your health care provider. This is important. During follow-up visits, your pacemaker will be checked and reprogrammed if necessary. Contact a health care provider if: ??? You gain weight suddenly. ??? Your legs or feet swell. ??? It feels like your heart is fluttering or skipping beats (you have heart palpitations). ??? You have any of these signs of infection: ? More redness, swelling, or pain around an incision. ? Fluid or blood coming from an incision. ? Warmth coming from an incision. ? Pus or a bad smell coming from an incision. ? A fever or chills. Get help right away if: ??? You have chest pain. ??? You have trouble breathing or are short of breath. ??? You become extremely tired. ??? You are light-headed or you faint. These symptoms may represent a serious problem that is an emergency. Do not wait to see if the symptoms will go away. Get medical help right away. Call your local emergency services (911 in the [place] Do not drive yourself to the hospital. Summary ??? After the procedure, it is common to have mild pain, swelling, or bruising over the incision. ??? Take fikr-grz-ibazkyx and prescription medicines only as told by your health care provider. ??? Do not raise your arm above your shoulder or lift anything that is heavier than 10 lb (4.5 kg), or the limit that you are told, until your health care provider says that it is safe. ??? Carry a pacemaker ID card with you at all times. This information is not intended to replace advice given to you by your health care provider. Make sure you discuss any questions you have with your health care provider. Document Revised: 02/08/2020 Document Reviewed: 02/08/2020 [employer] Patient Education ?? 2020 [employer]. clindamycin (oral/injection) (domenico Linda) Cleocin HCl, Cleocin Pediatric, Cleocin Phosphate What is the most important information I should know about clindamycin? Clindamycin can cause diarrhea, which may be severe or lead to serious, life-threatening intestinal problems. If you have diarrhea that is watery or bloody, stop using clindamycin and call your doctor. What is clindamycin? Clindamycin is an antibiotic that is used to treat serious infections caused by bacteria. Clindamycin may also be used for purposes not listed in this medication guide. What should I discuss with my healthcare provider before using clindamycin? You should not use this medicine if you are allergic to clindamycin or lincomycin. Tell your doctor if you have ever had: ?? colitis, Crohn's disease, or other intestinal disorder; ?? eczema, or allergic skin reaction; ?? asthma or a severe allergic reaction to aspirin; ?? liver disease; or ?? an allergy to yellow food dye. It is not known whether this medicine will harm an unborn baby. Tell your doctor if you are or plan to become . Clindamycin can pass into breast milk and may cause side effects in the nursing baby. If you are while taking this medicine, call your doctor if your baby has diaper rash, redness or white patches in the mouth or throat, stomach discomfort, or diarrhea that is watery or bloody. Clindamycin injection may contain an ingredient that can cause serious side effects or in very young or premature babies. Do not give this medicine to a child without medical advice. How should I use clindamycin? Follow all directions on your prescription label and read all medication guides or instruction sheets. Use the medicine exactly as directed. Clindamycin oral is taken by mouth. Clindamycin injection is injected into a muscle, or as an infusion into a vein. A healthcare provider will give your first dose and may teach you how to properly use the medication by yourself. Take the capsule with a full glass of water to keep it from irritating your throat. Measure liquid medicine carefully. Use the dosing syringe provided, or use a medicine dose-measuring device (not a kitchen spoon). You may need frequent medical tests during treatment. If you need surgery, tell your surgeon you currently use clindamycin. Use this medicine for the full prescribed length of time, even if your symptoms quickly improve. Skipping doses can increase your risk of infection that is resistant to medication. Clindamycin will not treat a viral infection such as the flu or a common cold. Store at room temperature away from moisture and heat. Protect the injectable medicine from high heat. Do not store the oral liquid in the refrigerator. Throw away any unused oral liquid after 2 weeks. Use a needle and syringe only once and then place them in a puncture-proof 'sharps' container. Follow state or local laws about how to dispose of this container. Keep it out of the reach of children and pets. What happens if I miss a dose? Use the medicine as soon as you can, but skip the missed dose if it is almost time for your next dose. Do not use two doses at one time. What happens if I overdose? Seek emergency medical attention or call the Poison Help line at . What should I avoid while using clindamycin? Antibiotic medicines can cause diarrhea, which may be a sign of a new infection. If you have diarrhea that is watery or bloody, call your doctor. Do not use anti-diarrhea medicine unless your doctor tells you to. What are the possible side effects of clindamycin? Get emergency medical help if you have signs of an allergic reaction (hives, difficult breathing, swelling in your face or throat) or a severe skin reaction (fever, sore throat, burning in your eyes, skin pain, red or purple skin rash that spreads and causes blistering and peeling). Seek medical treatment if you have a serious drug reaction that can affect many parts of your body. Symptoms may include: skin rash, fever, swollen glands, flu-like symptoms, muscle aches, severe weakness, unusual bruising, or yellowing of your skin or eyes. Call your doctor at once if you have: ?? any change in bowel habits; ?? severe stomach pain, diarrhea that is watery or bloody; ?? little or no urination; or ?? a metallic taste in your mouth (after clindamycin injection). Common side effects may include: ?? nausea, vomiting, stomach pain; ?? mild skin rash; or ?? vaginal itching or discharge; This is not a complete list of side effects and others may occur. Call your doctor for medical advice about side effects. You may report side effects to FDA at 6-905-VNT-0217. What other drugs will affect clindamycin? Sometimes it is not safe to use certain medications at the same time. Some drugs can affect your blood levels of other drugs you take, which may increase side effects or make the medications less effective. Other drugs may affect clindamycin, including prescription and qmwv-hce-jgjvsco medicines, vitamins, and herbal products. Tell your doctor about all your current medicines and any medicine you start or stop using. Where can I get more information? Your pharmacist can provide more information about clindamycin. Remember, keep this and all other medicines out of the reach of children, never share your medicines with others, and use this medication only for the indication prescribed. Every effort has been made to ensure that the information provided by [employer]. ('[employer]') is accurate, up-to-date, and complete, but no guarantee is made to that effect. Drug information contained herein may be time sensitive. [employer] information has been compiled for use by healthcare practitioners and consumers in the [place] and therefore [employer] does not warrant that uses outside of the [place] are appropriate, unless specifically indicated otherwise. [employer] drug information does not endorse drugs, diagnose patients or recommend therapy. [employer] drug information is an informational resource designed to assist licensed healthcare practitioners in caring for their patients and/or to serve consumers viewing this service as a supplement to, and not a substitute for, the expertise, skill, knowledge and judgment of healthcare practitioners. The absence of a warning for a given drug or drug combination in no way should be construed to indicate that the drug or drug combination is safe, effective or appropriate for any given patient. [employer] does not assume any responsibility for any aspect of healthcare administered with the aid of information [employer] provides. The information contained herein is not intended to cover all possible uses, directions, precautions, warnings, drug interactions, allergic reactions, or adverse effects. If you have questions about the drugs you are taking, check with your doctor, nurse or pharmacist. Copyright 5325-3978 [employer]. Version: 12.. Revision Date: 09/14/2018. saccharomyces boulardii lyo (SAK a lubna MYE sees reyna LAR nilam eye LYE oh) Florastor, Florastor Kids, Saccharomyces Boulardii+MOS What is the most important information I should know about saccharomyces boulardii lyo? Follow all directions on the product label and package. Tell each of your healthcare providers about all your medical conditions, allergies, and all medicines you use. What is saccharomyces boulardii lyo? Saccharomyces boulardii lyo is a specific form of yeast also known as Tiwari's Yeast, [place] CBS 5926, Levure de Bohenriqueerie, and Probiotic. Saccharomyces boulardii lyo has been used as a probiotic, or 'friendly bacteria,' to prevent the growth of harmful bacteria in the stomach and intestines. Saccharomyces boulardii lyo is likely effective in alternative medicine as an aid in preventing diarrhea caused by taking antibiotics, or by using a feeding tube. Saccharomyces boulardii lyo is also likely effective in treating diarrhea in babies and children. Saccharomyces boulardii lyo has been used as a possibly effective aid in preventing the recurrence of diarrhea caused by Clostridium difficile (C. difficile). However, this product may not be effective in treating the first episodes of this type of diarrhea. Saccharomyces boulardii lyo is also possibly effective in treating 'traveler's diarrhea,' diarrhea in people with HIV, and stomach ulcers caused by Helicobacter pylori. Other uses not proven with research have included irritable bowel disease, Crohn's disease, ulcerative colitis, cystic fibrosis, urinary tract infections, yeast infections, lactose intolerance, and other conditions. It is not certain whether saccharomyces boulardii lyo is effective in treating any medical condition. Medicinal use of this product has not been approved by the FDA. Saccharomyces boulardii lyo should not be used in place of medication prescribed for you by your doctor. Saccharomyces boulardii lyo is often sold as an herbal supplement. There are no regulated manufacturing standards in place for many herbal compounds and some marketed supplements have been found to be contaminated with toxic metals or other drugs. Herbal/health supplements should be purchased from a reliable source to minimize the risk of contamination. Saccharomyces boulardii lyo may also be used for purposes not listed in this product guide. What should I discuss with my healthcare provider before taking saccharomyces boulardii lyo? You should not use saccharomyces boulardii lyo if you are allergic to yeast, or if you are taking an antifungal medication such as: ?? clotrimazole (Mycelex Arjun); ?? itraconazole (Sporanox); ?? ketoconazole (Nizoral); ?? miconazole (Oravig); ?? nystatin (Mycostatin, Bio-Statin, Nilstat); or ?? voriconazole (Vfend). Ask a doctor, pharmacist, or other healthcare provider if it is safe for you to use this product if you have: ?? weak immune system (caused by disease or by using certain medicine); ?? lactose intolerance; ?? if you are dehydrated; or ?? if you have a central IV line (venous catheter). Ask a doctor before using this medicine if you are or . Do not give any herbal/health supplement to a child without medical advice. A child with diarrhea should be checked by a doctor. How should I take saccharomyces boulardii lyo? When considering the use of herbal supplements, seek the advice of your healthcare provider. You may also consider consulting a practitioner who is trained in the use of herbal/health supplements. If you choose to take saccharomyces boulardii lyo, use it as directed on the package or as directed by your healthcare provider, pharmacist, or other healthcare provider. Do not use more of this product than is recommended on the label. You may take saccharomyces boulardii lyo with or without food. Saccharomyces boulardii lyo is available in capsule and powder form. Do not use different formulations (such as capsules together with powder) at the same time without medical advice. You may get too much of this product. You may swallow the capsule whole, or open it and sprinkle the contents directly onto your tongue. Drink at least 4 ounces of water or juice when swallowing the medicine. To use the oral powder, tear open the packet and empty the entire contents into at least 4 ounces of water, juice, or milk. Stir this mixture and drink all of it right away. To make sure you get the entire dose, add a little more water to the same glass, swirl gently and drink right away. To make swallowing easier, you may also sprinkle the medicine from a capsule or from the powder packet into a spoonful of yogurt or applesauce. Swallow right away without chewing. Do not save the mixture for later use. Discard the empty capsule. Call your doctor if the condition you are treating with saccharomyces boulardii lyo does not improve, or if it gets worse while using this product. Store this product at room temperature away from moisture and heat. Do not refrigerate. What happens if I miss a dose? Skip the missed dose if it is almost time for your next scheduled dose. Do not use extra saccharomyces boulardii lyo to make up the missed dose. What happens if I overdose? Seek emergency medical attention or call the Poison Help line at . What should I avoid while taking saccharomyces boulardii lyo? Follow your healthcare provider's instructions about any restrictions on food, beverages, or activity. What are the possible side effects of saccharomyces boulardii lyo? Get emergency medical help if you have signs of an allergic reaction: hives; difficult breathing; swelling of your face, lips, tongue, or throat. Although not all side effects are known, saccharomyces boeliodii lyo is thought to be likely safe for most people when used as directed for up to 15 months. Common side effects may include: ?? gas, bloating; or ?? constipation. This is not a complete list of side effects and others may occur. Call your healthcare provider for medical advice about side effects. You may report side effects to FDA at 8-927-NQF-4046. What other drugs will affect saccharomyces boulardii lyo? Other drugs may affect saccharomyces boulardii lyo, including prescription and firq-aew-wwcyhes medicines, vitamins, and herbal products. Tell your doctor about all your current medicines and any medicine you start or stop using. Where can I get more information? Consult with a licensed healthcare professional before using any herbal/health supplement. Whether you are treated by a medical doctor or a practitioner trained in the use of natural medicines/supplements, make sure all your healthcare providers know about all of your medical conditions and treatments. Remember, keep this and all other medicines out of the reach of children, never share your medicines with others, and use this medication only for the indication prescribed. Every effort has been made to ensure that the information provided by [employer]. ('[employer]') is accurate, up-to-date, and complete, but no guarantee is made to that effect. Drug information contained herein may be time sensitive. [employer] information has been compiled for use by healthcare practitioners and consumers in the [place] and therefore [employer] does not warrant that uses outside of the [place] are appropriate, unless specifically indicated otherwise. [employer]'s drug information does not endorse drugs, diagnose patients or recommend therapy. [employer] drug information is an informational resource designed to assist licensed healthcare practitioners in caring for their patients and/or to serve consumers viewing this service as a supplement to, and not a substitute for, the expertise, skill, knowledge and judgment of healthcare practitioners. The absence of a warning for a given drug or drug combination in no way should be construed to indicate that the drug or drug combination is safe, effective or appropriate for any given patient. [employer] does not assume any responsibility for any aspect of healthcare administered with the aid of information [employer] provides. The information contained herein is not intended to cover all possible uses, directions, precautions, warnings, drug interactions, allergic reactions, or adverse effects. If you have questions about the drugs you are taking, check with your doctor, nurse or pharmacist. Copyright 3323-4233 [employer]. Version: 2.04. Revision Date: 02/15/2019. Emergency Awareness and Preventative Care STROKE is an EMERGENCY Every Minute Counts Act FAST and Check for these signs: FACE Does the face look uneven? ARM Does one arm drift down? SPEECH Does their speech sound strange? TIME Call at any sign of stroke Stroke Risk Factors Atrial Fibrillation (irregular heartbeat) Diabetes Family history of stroke Heart Disease Heavy alcohol use High Blood Pressure High Cholesterol Physical inactivity and obesity Smoking Cigarette Smoking The facts are clear, cigarette smoking will shorten your life. Smoking can cause many illnesses along the way. As a healthcare provider, we recommend that you stop smoking. Assistance with quitting is available by contacting 9-286-TMIW-NOW. This is a free resource providing counseling, support, and referral. Or you may contact your personal physician. National Suicide Prevention Lifeline: The National Suicide Prevention Lifeline is a national network of local crisis centers that provides free and confidential emotional support to people in suicidal crisis or emotional distress 24 hours a day, 7 days a week. Don't Wait! Stop a Heart Attack Before it Starts What is a heart attack? A heart attack is damage or to a part of the heart from severely decreased or lack of blood flow to the heart. Over time, arteries can become narrow from the buildup of fat and cholesterol, which is called plaque. The plaque can rupture causing a blood clot to form. When the blood clot forms, the artery can become severely narrowed or completely blocked, causing a heart attack. Heart attack is the leading cause of in the [place]. 85% of muscle damage occurs within the first 2 hours. Delay in the recognition of heart attack symptoms increases the chances of . Know the early symptoms of a heart attack: Nausea Feeling of fullness in chest Jaw Pain Pain that travels down one or both arms Fatigue/being tired Anxiety Back Pain Chest pressure, squeezing, or discomfort Shortness of breath Sweating, or a cold sweat Feeling of impending doom There are unusual signs of a heart attack, too! Women, the elderly, and diabetics may present with atypical symptoms: Fainting/dizziness Weakness Confusion Risk Factors for a Heart Attack Some heart disease risk factors, such as age and family history, cannot be changed. Others, like smoking and lack of exercise, can be changed. Smoking High Cholesterol High Blood Pressure Family History Obesity Age Gender (Males are at higher risk) Lack of Exercise Diabetes Diet Stress Excessive Alcohol Intake If you or someone you know is experiencing the signs and symptoms of a heart attack, DON???T DELAY. Call immediately and seek help. If someone collapses, perform CPR! Do not attempt to drive if you are having symptoms of heart attack. Hands-Only CPR Why Hands-Only CPR? Hands-Only CPR has been shown to be as effective as conventional CPR for cardiac arrests that occur outside of a hospital. Survival depends on immediately receiving CPR from someone nearby. How do you perform Hands-Only CPR? There are two easy steps: Call if you see a teen or adult collapse Push hard and fast in the center of the chest at a beat of 100 beats per minute. Save a life! 4 WAYS TO GET AHEAD OF SEPSIS SEPSIS is a MEDICAL EMERGENCY. Time matters! Infections put you and your family at risk for a life-threatening condition called sepsis. Sepsis is the body's extreme response to an infection. It is life-threatening, and without timely treatment, sepsis can rapidly lead to tissue damage, organ failure, and . Sepsis happens when an infection you already have-in your skin, lungs, urinary tract or somewhere else-triggers a chain reaction throughout your body. 1 PREVENT INFECTIONS Take good care of chronic conditions. Talk to your doctor about getting the recommended vaccines. 2 PRACTICE GOOD HYGIENE Wash your hands frequently. Keep cuts or open sores clean and covered until they are healed. 3 KNOW THE SYMPTOMS Confusion or disorientation Shortness of breath High heart rate Fever, shivering, or feeling very cold Extreme pain or discomfort Clammy or sweaty skin 4 ACT FAST Get medical care IMMEDIATELY if you suspect sepsis or if you have an infection that is not getting better or is getting worse. To learn more about sepsis and how to prevent infections, visit www.cdc.gov/sepsis. Test Results Laboratory or Other Results This Visit (last charted value for your 01/30/2021 visit) Hematology 02/03/2021 5:53 AM WBC: 5.4 K/uL -- Normal range between ( 4.5 and 10.5 ) RBC: 4.46 Million/uL -- Normal range between ( 3.93 and 5.22 ) Hct: 38.6 % -- Normal range between ( 34.1 and 44.9 ) Hgb: 12.4 g/dL -- Normal range between ( 11.2 and 15.7 ) Platelet Count: 237 K/uL -- Normal range between ( 163 and 369 ) MCH: 27.8 pg -- Normal range between ( 25.6 and 32.2 ) MCHC: 32.1 Gram/dL -- Normal range between ( 32.2 and 36.5 ) MCV: 86.5 fL -- Normal range between ( 79.0 and 94.8 ) Slide Review: Add Diff Man Target Cells: 1+ ALYC #: 1 K/uL Band Percent Man: 1 % -- Normal range between ( 5 and 11 ) Hypochromia: 1+ RBC Morphology: Abnormal RDW: 13.3 % -- Normal range between ( 11.7 and 14.9 ) ANC #: 3 K/uL [place] Percent Man: 13 % -- Normal range between ( 4 and 5 ) Neutrophil Percent Man: 63 % -- Normal range between ( 50 and 65 ) Eos Percent Man: 2 % -- Normal range between ( 0 and 3 ) Platelet Ct Estimate: Adequate Teardrop Cells: 1+ MPV: 10.1 fL -- Normal range between ( 9.4 and 12.4 ) Poikilocytosis: 1+ Lymph Percent Man: 21 % -- Normal range between ( 24 and 44 ) 02/01/2021 4:00 AM Stomatocytes: 1+ Baso Percent Man: 1 % -- Normal range between ( 0 and 1 ) 01/31/2021 6:03 AM Sed Rate Auto: 22 mm/Hr -- Normal range between ( 0 and 20 ) 01/30/2021 5:04 PM Eos %: 3.4 % -- Normal range between ( 0.0 and 7.0 ) [place] #: 0.51 K/uL -- Normal range between ( 0.16 and 1.00 ) Eos #: 0.15 x10(3)/uL -- Normal range between ( 0.00 and 0.80 ) [place] %: 11.5 % -- Normal range between ( 3.0 and 9.0 ) Baso %: 0.4 % -- Normal range between ( 0.0 and 1.5 ) Baso #: 0.02 x10(3)/uL -- Normal range between ( 0.00 and 0.20 ) Neut %: 53.9 % -- Normal range between ( 34.0 and 71.0 ) Neut #: 2.40 K/uL -- Normal range between ( 1.56 and 6.13 ) Lymph %: 30.6 % -- Normal range between ( 19.3 and 53.1 ) Lymph #: 1.36 x10(3)/uL -- Normal range between ( 1.00 and 3.90 ) IG#: 0.01 x10(3)/uL -- Normal range between ( 0.00 and 0.05 ) IG%: 0.20 % -- Normal range between ( 0.00 and 0.60 ) Microbiology 01/31/2021 1:35 PM MRSA Surveillance: See Result 01/30/2021 4:58 PM SARS-CoV-2 (COVID19 PCR): Negative General Chemistry 02/04/2021 8:16 AM Creatinine Level: 0.80 mg/dL -- Normal range between ( 0.55 and 1.02 ) Sodium Level: 138 mmol/L -- Normal range between ( 136 and 146 ) Potassium Level: 4.6 mmol/L -- Normal range between ( 3.5 and 5.1 ) Chloride Level: 108 mmol/L -- Normal range between ( 102 and 112 ) Carbon Dioxide Level: 24 mmol/L -- Normal range between ( 21 and 32 ) Anion Gap: 11 -- Normal range between ( 9 and 20 ) Bun/Creatinine: 17.5 -- Normal range between ( 8.0 and 20.0 ) Calcium Level: 9.1 mg/dL -- Normal range between ( 8.4 and 10.1 ) eGFR : >60 mL/min/1.73m2 eGFR NonAfrican: >60 mL/min/1.73m2 Glucose Level: 89 mg/dL -- Normal range between ( 74 and 106 ) Magnesium Level: 2.0 mg/dL -- Normal range between ( 1.5 and 2.4 ) Blood Urea Nitrogen: 14 mg/dL -- Normal range between ( 7 and 22 ) 01/31/2021 6:03 AM Bilirubin Total: 0.6 mg/dL -- Normal range between ( 0.2 and 1.2 ) Hgb A1C: 4.7 % A/G Ratio: 0.7 -- Normal range between ( 1.1 and 2.5 ) ALT: 23 Units/Liter -- Normal range between ( 13 and 56 ) AST: 13 Units/Liter -- Normal range between ( 5 and 37 ) Globulin: 4.2 Gram/dL -- Normal range between ( 1.5 and 4.5 ) Alk Phos: 74 Units/Liter -- Normal range between ( 27 and 136 ) eAVG Glucose: 88 mg/dL Protein Total: 7.1 Gram/dL -- Normal range between ( 6.4 and 8.2 ) Albumin Level: 2.9 Gram/dL -- Normal range between ( 3.4 and 5.0 ) 01/30/2021 5:38 PM CRP: <0.29 mg/dL -- Normal range between ( 0.00 and 0.30 ) Cardiac Specific Markers 02/01/2021 4:00 AM CK: 53 Units/Liter -- Normal range between ( 26 and 192 ) 01/30/2021 5:38 PM ProBNP: 286 pg/mL -- Normal range between ( 0 and 125 ) Coagulation 01/31/2021 6:03 AM INR: 1.0 -- Normal range between ( 0.9 and 1.2 ) PT: 10.2 Second(s) -- Normal range between ( 9.2 and 12.0 ) Endocrinology 01/31/2021 6:03 AM TSH: 1.570 mcInt Units/mL -- Normal range between ( 0.358 and 3.740 ) Procalcitonin: <0.25 ng/mL -- Normal range between ( 0.00 and 2.00 ) Patient Name:OSMAN ARAGON I have received and understand this information and was given the opportunity to ask questions. Patient/Churn Tender Name: Patient/Churn Tender Signature: Relationship to Patient: Clinician/Hospital Churn Tender Signature: Date: documented in this encounter Plan of Treatment Upcoming Encounters Date Type Department Care Team (Late st Contact Info) Description 11/17/2024 9:30 AM EDT Office Visit [facility] Electrophysiology [address] [place], [place] [id number] Carlos Carrion MD [address] [place] [address] [address] [place] [address] documented as of this encounter Visit Diagnoses Not on filedocumented in this encounter Care Teams Art Manager Relationship Specialty Start Date End Date Bernardo Bashir MD [address] [place] [address] PCP - General Family Medicine 05/13/24 Carlos Carrion MD [address] [place] [address] [address] [place] [address] Tank Cleaning Supervisor Electrophysiology 12/28/23 documented as of this encounter
--- OUTSIDE RECORDS SUMMARY | 2024-10-05 13:17 | XMS_ITS | Encounter Summary ---
Author Organization [employer] ([place], [place], [place], [place]) Address [address] [place] [address] Care Team Providers Care Deicer Repairer Electric Name Role Phone Carlos Carrion MD Unavailable Bernardo Bashir MD Primary Care Provider [phone] Encounter Details Date Type Department Care Team (Late st Contact Info) Description 02/04/2021 Transcribed Document [facility] Radiology [address] [place] [address] Rupa Ardon MD [address] [place] [address] [place] [address] Social History Tobacco Use Types Packs/Day Years [...] Conversion Note - Rupa Ardon MD - 02/04/2021 5:50 PM EST DATE OF ADMISSION: 01/30/2021 DATE OF DISCHARGE: 02/04/2021 PRIMARY CARE PROVIDER: Dr. Moses Bashir. DISCHARGE DIAGNOSES: 1. 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 2. Recent ICD placement on 01/16/2021. 3. Nonischemic cardiomyopathy. 4. Tobacco abuse. 5. Obesity with a BMI of 40. 6. Noncompliance. PRINCIPAL CONSULTATIONS: 1. ID consult with Dr. Saleem. 2. EP consult with Dr. Carrion. ADMISSION HISTORY AND HOSPITAL COURSE: This is a 40-year-old black female with history of cardiomyopathy, who recently underwent an AICD placement on 01/16/2021. She was given specific instructions about activity limitations, but evidently she was unable to comply with that as she was caring for her 2-year-old grandson. When she had a followup with EP Service, she was noted to have a slight wound dehiscence along with some serous drainage in the pocket area. There was some increased swelling and erythema and the incision was glued back together and advised to come in for further evaluation and admission. The patient denied any recent history of fever or chills. At the time of admission, she was noted to be afebrile. Her BUN and creatinine were 12 and 0.8. White count was 4.4 with hemoglobin and hematocrit of 13.2 and 40 with a platelet count of 274. Her procalcitonin was less than 0.25. Because of significant concern for potential pacemaker site infection and with abundance of caution, the patient was placed on IV antibiotics. ID consult was requested and Dr. Saleem did follow the patient. Initially, she was continued on daptomycin. The patient's culture which included blood cultures have been unremarkable thus far. Her MRSA surveillance screen was negative. The patient was seen and re-evaluated by ID services and given that she continued to do better with no further drainage that was noticed in that area, ID cycle consultant did feel that the patient would be appropriate for p.o. antibiotics and subsequent discharge. PHYSICAL EXAMINATION: On the day of discharge, GENERAL: The patient was doing well. Awake, alert, and oriented and afebrile with a blood pressure of 125/70. LUNGS: Clear to auscultation. ABDOMEN: Benign and soft. The pacemaker site itself appeared to be healing well at this time with some scabbing of the skin that was noted. DISCHARGE DIET: Would be cardiac. DISCHARGE ACTIVITY: The patient has been advised once again to follow through with restrictions as outlined by Dr. Carrion and to continue to keep the area dry and clean. DISCHARGE MEDICATIONS: 1. Clindamycin 300 mg t.i.d. for 10 days. 2. Levocetirizine 5 mg daily. 3. Florastor 250 mg daily. 4. Coreg 6.25 mg b.i.d. 5. Flonase nasal spray p.r.n. 6. Lasix 20 mg daily. 7. Entresto one tablet b.i.d. DISCHARGE FOLLOWUP: 1. With Dr. Saleem on 02/18/2021 at 2 p.m. 2. Follow up with Dr. Carrion in 1 week. 3. Follow up with the primary care provider in 1 week. All other discharge instructions have been reviewed with the patient including the need to exercise, continued caution with care to the pacemaker site have all been discussed. Time spent towards this discharge dispositioning including review of the above and care coordination totaled at 35 minutes. /[id number] Rupa Ardon MD VLS/AQ / VLS / MODL /[id number] documented in this encounter Plan of Treatment Upcoming Encounters Date Type Department Care Team (Late st Contact Info) Description 11/17/2024 9:30 AM EDT Office Visit [facility] Electrophysiology [address] [place], [place] [phone] Carlos Carrion MD [address] [place] [address] documented as of this encounter Visit Diagnoses Not on filedocumented in this encounter Care Teams Deicer Repairer Electric Relationship Specialty Start Date End Date Bernardo Bashir MD [address] [place] [address] PCP - General Family Medicine 05/13/24 Carlos Carrion MD [address] [place] [address] Superintendent Gas Distribution Electrophysiology 12/28/23 documented as of this encounter
--- OUTSIDE RECORDS SUMMARY | 2024-10-05 13:17 | XMS_ITS | Encounter Summary ---
Author Organization [employer] ([place], [place], [place], [place]) Address [address] [place] [address] Care Team Providers Care Rn Homecare Name Role Phone Carlos Carrion MD Unavailable Bernardo Bashir MD Primary Care Provider [phone] Encounter Details Date Type Department Care Team (Late st Contact Info) Description 01/31/2021 Transcribed Document [facility] Family Medicine [address] [place] [address] ProviderNehemiah MD [address] [place] [address] Social History Tobacco Use Types [...] Cerner Conversion Note - Historical ProviderMD - 01/31/2021 2:05 AM RODDING ANODE WORKER Event Note Entered On: 01/31/2021 2:07 EST Performed On: 01/31/2021 2:05 EST by BHAVNA TAI RN-PATIENT CARE BEDSIDE NON-EXEMPT Event Note Event Date/Time : 01/30/2021 23:30 EST Event Location : Assigned room Description of Event : I called because of a reporteditching and redness on patients neck, she ordered Benadryl 25mg every 8 hours for 24 hours, asked me to discontinue Vancomycin and give the pateint Linezolid 600mgintravenous as a start dose. BHAVNA TAI RN-PATIENT CARE BEDSIDE NON-EXEMPT - 01/31/2021 2:05 EST Electronically signed by Melyssa, [facility] Conversion [address] Magistrate Cerner at 07/08/2022 9:12 AM CDT documented in this encounter Plan of Treatment Upcoming Encounters Date Type Department Care Team (Late st Contact Info) Description 11/17/2024 9:30 AM EDT Office Visit [facility] Electrophysiology [address] [place] [address] Carlos Carrion MD [address] [place] [address] documented as of this encounter Visit Diagnoses Not on filedocumented in this encounter Care Teams Rn Homecare Relationship Specialty Start Date End Date Bernardo Bashir MD [address] [place] [address] PCP - General Family Medicine 05/13/24 Carlos Carrion MD [address] [place] [address] Content Analyst Electrophysiology 12/28/23 documented as of this encounter
--- OUTSIDE RECORDS SUMMARY | 2024-10-05 13:17 | XMS_ITS | Encounter Summary ---
Author Organization [employer] ([place], [place], [place], [place]) Address [address] [place] [address] Care Team Providers Care Station Captain Name Role Phone Carlos Carrion MD Unavailable Bernardo Bashir MD Primary Care Provider [phone] Encounter Details Date Type Department Care Team (Late st Contact Info) Description 01/31/2021 Transcribed Document [facility] [place] [place] [address] ProviderNehemiah MD [address] [place] [address] Social History Tobacco Use Types [...] Conversion Note - Nehemiah ProviderMD - 01/31/2021 2:00 AM ROLL PICKER Meteorology Professor Details Entered On: 01/31/2021 3:08 EST Performed On: 01/31/2021 2:00 EST by BHAVNA TAI RN-PATIENT CARE BEDSIDE NON-EXEMPT Order Details IV Order Detail : 1 Oxygen Order Detail : 0 Nurse Collect Order Detail : 0 Patient Needs Meds Crushed/Liquid : No BHAVNA TAI RN-PATIENT CARE BEDSIDE NON-EXEMPT - 01/31/2021 3:08 EST documented in this encounter Plan of Treatment Upcoming Encounters Date Type Department Care Team (Late st Contact Info) Description 11/17/2024 9:30 AM EDT Office Visit [facility] Electrophysiology [address] [place] [address] [place] [address] [place] [address] [address] [place] [id number] documented as of this encounter Visit Diagnoses Not on filedocumented in this encounter Care Teams Station Captain Relationship Specialty Start Date End Date Bernardo Bashir MD [address] [place] [address] PCP - General Family Medicine 05/13/24 [place] [address] [place] [address] [id number] Agency Legal Counsel Electrophysiology 12/28/23 documented as of this encounter
--- OUTSIDE RECORDS SUMMARY | 2024-10-05 13:17 | XMS_ITS | Encounter Summary ---
Author Organization [employer] ([place], [place], [place], [place]) Address [address] [place] [address] Care Team Providers Care Professional Golf Tournament Player Name Role Phone Carlos Carrion MD Unavailable Bernardo Bashir MD Primary Care Provider [phone] Encounter Details Date Type Department Care Team (Late st Contact Info) Description 01/31/2021 Transcribed Document [facility] [place] [address] [place] [address] ProviderNehemiah MD [address] [place] [address] Social History Tobacco Use Types [...] Conversion Note - Historical Provider, - 01/31/2021 2:43 PM PERIOPERATIVE MANAGER UM Authorization Entered On: 01/31/2021 14:44 EST Performed On: 01/31/2021 14:43 EST by MIHAELA MALONE, Creative Services Writer Primary Insurance Authorization Authorization and Policy Numbers : Insurance 1 Health Plan: [facility] Policy Number: [id number] Authorization Number: Insurance Primary Name : [facility] Policy Number: [id number] Authorization Status-Primary : Admit approved Reference Number-Primary : [id number] Authorization Number-Primary : [id number] Number of Days Authorized-Primary : 4 Day(s) Authorized Service Begin Date-Primary : 01/30/2021 EST Authorized Service End Date-Primary : 02/03/2021 EST Authorization Comments-Primary : inpt [facility] 01/31/21 auth# [id number] NRD 02/04/21 Historical Authorization Comments-Primary : Comment 1: AUTH SUBMITTED VIA PORTAL W/ CLINICAL ATTACHED (Nataliya Keita, Rn-Utilization Review 01/31/2021 11:20) MIHAELA MALONE, Creative Services Writer - 01/31/2021 14:43 EST Electronically signed by [facility] Conversion Regional Sales Director Cerner at 07/08/2022 8:55 AM CDT documented in this encounter Plan of Treatment Upcoming Encounters Date Type Department Care Team (Late st Contact Info) Description 11/17/2024 9:30 AM EDT Office Visit [facility] Electrophysiology [address] [place], [place] [phone] Carlos Carrion MD [address] [place] [address] documented as of this encounter Visit Diagnoses Not on filedocumented in this encounter Care Teams Professional Golf Tournament Player Relationship Specialty Start Date End Date Bernardo Bashir MD [address] [place] [address] PCP - General Family Medicine 05/13/24 Carlos Carrion MD [address] [place] [address] Activity Aid Electrophysiology 12/28/23 documented as of this encounter
--- OUTSIDE RECORDS SUMMARY | 2024-10-05 13:17 | XMS_ITS | Encounter Summary ---
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 [employer]ICE Stroke/Warfarin Instructions Entered On: 02/04/2021 13:29 EST Performed On: 02/04/2021 13:29 EST by KEV MANLEY RN Stroke/Warfarin Instructions Stroke/TIA Discharge Ins : N/A Warfarin Discharge Ins : N/A KEV MANLEY RN - 02/04/2021 13:29 EST Electronically signed by Mitra Ragsdale Conversion Power Equipment Technology Instructor Cerner at 07/08/2022 8:56 AM CDT documented in this encounter Plan of Treatment Upcoming Encounters Date Type Department Care Team (Late st Contact Info) Description 11/17/2024 9:30 AM EDT Office Visit [facility] Electrophysiology [address] [place] [address] [phone] [place] [address] [place] [address] [place] [address] documented as of this encounter Visit Diagnoses Not on filedocumented in this encounter Care Teams Spring Clipper Relationship Specialty Start Date End Date Bernardo Bashir MD [address] [place], [place] [id number] PCP - General Family Medicine 05/13/24 Carlos Carrion MD [address] [place] [address] [place] [address] Bulk Tank Driver Electrophysiology 12/28/23 documented as of this encounter
--- OUTSIDE RECORDS SUMMARY | 2024-10-05 13:17 | XMS_ITS | Encounter Summary ---
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 Chart Check - Review Order Profile Entered On: 01/31/2021 19:44 EST Performed On: 01/31/2021 17:00 EST by Tomeka Corona Non Emp RN Chart Check Powerplans Initiated/Discontinued as Appropriate : Yes All Active Orders Reviewed : Yes Tomeka Corona Non Emp RN - 01/31/2021 19:43 EST documented in this encounter Plan of Treatment Upcoming Encounters Date Type Department Care Team (Late st Contact Info) Description 11/17/2024 9:30 AM EDT Office Visit [address] [place] [phone] Carlos Carrion MD [address] [facility] [place] [address] documented as of this encounter Visit Diagnoses Not on filedocumented in this encounter Care Teams Metal Treater Relationship Specialty Start Date End Date Bernardo Bashir MD [address] [place], [place] [phone] PCP - General Family Medicine 05/13/24 [place] [address] [place] [address] [place] [id number] Discharge Specialist Electrophysiology 12/28/23 documented as of this encounter
--- OUTSIDE RECORDS SUMMARY | 2024-10-05 13:17 | XMS_ITS | Data Portability ---
Author Organization [place] [facility] Address [address] [place] [id number] Care Team Providers Care Design Printer Balloon Name Role Phone GABRIELA WASHINGTON Primary Care Provider Assessment Encounter Date Assessment Date Assessment LastModified by Organization Details LastModified Time 05/28/2024 05/28/2024 I ordered an oral steroid and oral antiemetic based on patient's symptoms and physical assessment indicating acute upper respiratory virus contributing to mild gastritis. I instructed patient to use medications as directed and to follow up with primary care if symptoms worsen or not improved in 7 days. Instructed patient to follow up with ER immediately for any severe respiratory symptoms, severe chest pains persistent fevers. Patient verbalized understanding and agreement with plan of care. [email or web address] Not available 05/28/2024 14:12:01 07/17/2024 07/17/2024 In summary this is a 44-year-old female who presented to the clinic complaining of sore throat, right ear pain, intermittent cough, and general malaise that began on and has persisted. Please see HPI for further details. Rapid strep test performed and was negative. Results discussed with patient. Despite rapid strep test being negative, based on patient's symptoms, and physical examination findings I suspect that she most likely has acute strep pharyngitis. Patient also will be treated for acute otitis media of the right ear. Prescriptions for azithromycin and promethazine DM sent to local pharmacy. Patient advised not to drive while taking promethazine DM due to it causing drowsiness. .Patient verbalized undrerstanding. Patient advised to increase fluid intake, take all antibiotics and complete prescription as prescribed, take Tylenol/ibuprofe n as needed, discard toothbrush in 48 hours, and follow up with their primary care provider if symptoms persist or worsen. [email or web address] Not available 07/17/2024 15:14:01 Plan of Treatment Reminders Order Date Submit Date Provider Last Modified By Organization Details Last Modified Time Details Appointments None record ed. Lab rapid strep group A, throat 2024 025 [facility], [address], [place], [address], Ph [phone] 5 09:40:46 infect ious diseas e panel 2024 025 [facility], [address], [place], [address], 5 09:50:57 rapid strep group A, throat 2024 025 [email or web address] [facility], [address], [place], [address], Ph [phone] 5 15:10:27 rapid strep group A, throat 2024 025 [email or web address] [facility], [address], [place], [address], Ph [phone] 5 14:10:29 rapid flu (A+B) 2024 025 [email or web address] [facility], [address], [place], [address], Ph [phone] 5 14:10:30 rapid SARS CoV 2 Ag, QL IA, respir atory specim en 2024 025 [email or web address] [facility], [address], [place], [address], Ph [phone] 5 14:10:30 rapid strep group A, throat 2024 025 [email or web address] [facility], [address], [place], [address], Ph [phone] 5 11:03:45 rapid SARS CoV 2 Ag, QL IA, respir atory specim en [address] [facility], [address], [place], [address], Ph [phone] 5 11:03:51 rapid flu (A+B) [address], [address], [place], [address], Ph [phone] 5 11:03:57 Referral None record ed. Procedures None record ed. Surgeries None record ed. Imaging None record ed. Medication Orders Bromfe d DM 2 mg-30 mg-10 mg/5 mL oral syrup 2024 025 [facility][id number], [address] [place] [address], [address], 5 09:27:29 promet hazine -DM 6.25 mg-15 mg/5 mL oral syrup 2024 025 juan diego [facility]/Pharmacy #2332, [address] [place] [address], [address], 5 15:10:49 azithr omycin 500 mg tablet 2024 025 [facility]/Pharmacy #2332, [address] [place] [address], [address], 5 15:10:28 ondans etron 4 mg disint egrati ng tablet 2024 025 [facility]acy #2332, [address] [place] [address], [address], 5 14:10:31 Medrol (Alexander) 4 mg tablet s in a dose pack 2024 025 [facility]/Pharmacy #2332, [address] [place], [address], 5 14:10:31 predni sone 10 mg tablet s in a dose pack 2024 025 [facility]armacy #2332, [address] [place], [address], 5 11:05:09 Patient TargetsNo targets recorded. Patient InstructionsNo instructions recorded. Reason for Referral None Reported. Results Created Date Observation Date Name Description Value Unit Range Abnormal Flag Note LastModifiedBy Organization Detail LastModifiedTime 04/25/1904/25/2024 rapid flu (A+B) Flu A negati ve Not Available [facility] [address], [place], [address], Ph [phone] 04/25/2024 10:38:28 04/25/19 25 04/25/2024 rapid flu (A+B) Flu B negati ve Not Available [facility] [address], [place], [address], Ph [phone] 04/25/2024 10:38:28 04/25/19 25 04/25/2024 rapid SARS CoV 2 Ag, QL IA, respi rator y speci men rapid SARS CoV 2 Ag, QL IA, respiratory specimen negati ve Not Available [facility] [address], [place], [address], Ph [phone] 04/25/2024 10:38:22 04/25/19 25 04/25/2024 rapid strep group A, throa t Strep negati ve Not Available [facility] [address], [place], [address], Ph [phone] 04/25/2024 10:38:16 05/29/19 25 05/28/2024 rapid SARS CoV 2 Ag, QL IA, respi rator y speci men rapid SARS CoV 2 Ag, QL IA, respiratory specimen negati ve Not Available [facility] [address], [place], [address], Ph [phone] 05/28/2024 13:40:06 05/29/19 25 05/28/2024 rapid flu (A+B) Flu A negati ve Not Available [facility] [address], [place], [address], Ph [phone] 05/28/2024 13:38:13 05/29/19 25 05/28/2024 rapid flu (A+B) Flu B negati ve Not Available [facility] [address], [place], [address], Ph [phone] 05/28/2024 13:38:13 05/29/19 25 05/28/2024 rapid strep group A, throa t Strep negati ve Not Available [facility] [address], [place], [address], Ph [phone] 05/28/2024 13:36:36 07/18/19 25 07/17/2024 rapid strep group A, throa t Strep negati ve Not Available [facility] [address], [place], [address], Ph [phone] 07/17/2024 14:49:44 08/30/19 25 08/31/2024 PHARY NGITI S/LAR YNGIT IS chlamydia pneumoniae 0.000 ppm 19.961 - 24.689 normal Not Detec vincent Not Available [facility] [address], [place], [address], 08/31/2024 09:50:57 08/30/19 25 08/31/2024 PHARY NGITI S/LAR YNGIT IS covid-19 coronavirus (sars-cov-2) 0.000 ppm 23.000 - 32.500 normal Not Detec vincent Not Available [facility] [address], [place], [address], 08/31/2024 09:50:57 08/30/19 25 08/31/2024 PHARY NGITI S/LAR YNGIT IS enterovirus D68 0.000 ppm 23.000 - 32.117 normal Not Detec vincent Not Available [facility] [address], [place], [address], 08/31/2024 09:50:57 08/30/19 25 08/31/2024 PHARY NGITI S/LAR YNGIT IS human metapneumovi lico 0.000 ppm 23.000 - 32.210 normal Not Detec vincent Not Available [facility] [address], [place], [address], 08/31/2024 09:50:57 08/30/19 25 08/31/2024 PHARY NGITI S/LAR YNGIT IS influenza virus B 0.000 ppm 23.000 - 30.081 normal Not Detec vincent Not Available [facility] [address], [place], [address], 08/31/2024 09:50:57 08/30/19 25 08/31/2024 PHARY NGITI S/LAR YNGIT IS mycoplasma pneumoniae 0.000 ppm 19.961 - 24.689 normal Not Detec vincent Not Available [facility] [address], [place], [address], 08/31/2024 09:50:57 08/30/19 25 08/31/2024 PHARY NGITI S/LAR YNGIT IS coronaviruse s (229E, nl63, hku1, oc43) (g_betacoron avirus_1_g_c oronavirus_h ku1) 0.000 ppm 23.000 - 31.416 normal Not Detec vincent Not Available [facility] [address], [place], [address], 08/31/2024 09:50:57 08/30/19 25 08/31/2024 PHARY NGITI S/LAR YNGIT IS parainfluenz a virus (types 1, 2, 3, 4) 0.000 ppm 23.000 - 31.313 normal Not Detec vincent Not Available [facility] [address], [place], [address], 08/31/2024 09:50:57 08/30/19 25 08/31/2024 PHARY NGITI S/LAR YNGIT IS respiratory syncytial virus ([id number]_[id number] 0015_po) 0.000 ppm 23.000 - 31.722 normal Not Detec vincent Not Available [facility] [address], [place], [address], 08/31/2024 09:50:57 08/30/19 25 08/31/2024 PHARY NGITI S/LAR YNGIT IS rhinovirus/e nterovirus (RV_[id number] [id number]_po) 0.000 ppm 23.000 - 32.985 normal Not Detec vincent Not Available [facility] [address], [place], [address], 08/31/2024 09:50:57 08/30/19 25 08/31/2024 PHARY NGITI S/LAR YNGIT IS streptococcu s pyogenes (group A strep) 0.000 ppm 19.961 - 24.689 normal Not Detec vincent Not Available [facility] [address], [place], [address], 08/31/2024 09:50:57 08/30/19 25 08/31/2024 PHARY NGITI S/LAR YNGIT IS streptococcu s dysgalactiae (group C & g strep) 0.000 ppm 19.961 - 24.689 normal Not Detec vincent Not Available [facility] [address], [place], [address], 08/31/2024 09:50:57 08/30/19 25 08/31/2024 PHARY NGITI S/LAR YNGIT IS adenovirus ([id number] [id number]_po) 0.000 ppm 23.000 - 31.943 normal Not Detec vincent Not Available [facility] [address], [place], [address], 08/31/2024 09:50:57 08/30/19 25 08/31/2024 PHARY NGITI S/LAR YNGIT IS fusobacteriu m nucleatum, necrophorum 0.000 ppm 19.961 - 24.689 normal Not Detec vincent Not Available [facility] [address], [place], [address], 08/31/2024 09:50:57 08/30/19 25 08/29/2024 rapid strep group A, throa t Strep negati ve Not Available [facility] [address], [place], [address], Ph [phone] 08/29/2024 09:08:36 07/02/19 25 04/12/2024 pacem selina inter rogat ion (PROC ) No observ ation record ed. [email or web address] Not Available 07/01 08:35:59 Result Notes None recorded. Problems Name Problem SNOMED Code Status Onset Date Resolution Date Notes Provider Name and Address Organization Details Recorded Time Ventricular fibrillation 31497146 Active 2023 Loki Vu MD [address], [place], [address] , [place] [facility] [place] [facility] [place] 4 16:02:26 Cough 86370966 Active 2021 Nyasia crespo, [place] [facility] [place] [facility] [place] 2 08:57:38 Dilated cardiomyopath y 315141754 Active 2022 Cheyenne crespo, MARIAA Lopez [facility] [place] 3 15:43:18 Essential hypertension 93321816 Active 2022 Cheyenne crespo, MARIAA Lopez [facility] [place] 3 15:43:31 Noncompliance with treatment 4271166 Active 2022 Cheyenne crespo, MARIAA Lopez [facility] [place] 3 15:43:45 Automatic implantable cardiac defibrillator in situ 312552330 Active 2022 Cheyenne crespo, MARIAA Lopez [facility] [place] 3 15:44:14 Cigarette smoker 39497879 Active 2022 Loki Vu MD [address] & [place] 3 15:59:17 Dyspnea on exertion 77735664 Active 2022 Loki Vu MD [address] [place], [place] [address]NT [facility] [place] 3 16:05:50 Hypertensive disorder 79035053 Active 2023 Loki Vu MD [address] [facility] [place] 4 14:22:30 Problem Notes None recorded. Medical Equipment None Reported. Allergies Allergen ID Allergen Name Allergen Category Reaction Reaction Severity Criticality Documentation Date Start Date Code Code System Note Provider Name and Address Organization Details Recorded Time 72169 Product containin g penicilli n (product) medicatio n Not available Not available Not available 01/14/2022 96992 8001 SNOMED Nyasia crespo, MARIAA - [facility] [place] 2 08:57:39 Medications Name Sig Start Date Stop Date Status Note LastModified by Organization Details LastModified Time cyclobenzap rine 10 mg tablet TAKE 1 TABLET BY MOUTH AT NIGHT NEEDED FOR MUSCLE SPASMS. active Not Available Not Available No t Available furosemide 40 mg tablet TAKE 1 TABLET BY MOUTH EVERY DAY active Not Available Not Available No t Available promethazin e-DM 6.25 mg-15 mg/5 mL oral syrup TAKE 5 ML EVERY 4 HOURS BY ORAL ROUTE FOR 4 DAYS. active Not Available Not Available No t Available carvedilol 6.25 mg tablet TAKE 2 TABLETS (12.5 MG) BY MOUTH 2 (TWO) TIMES A DAY. active Not Available Not Available No t Available prednisone 10 mg tablet TAKE 6 TABLETS ON DAY 1 DIRECTED ON PACKAGE AND DECREASE BY 1 TAB EACH DAY FOR A TOTAL OF 6 DAYS active Not Available Not Available No t Available carvedilol 12.5 mg tablet TAKE 1 TABLET BY MOUTH TWICE A DAY WITH MEALS active Not Available Not Available No t Available clindamycin HCl 300 mg capsule 02/03 completed Not Available Not Available Not Available cetirizine 10 mg tablet TAKE 1 TABLET BY MOUTH EVERY DAY active Not Available Not Available No t Available azithromyci n 250 mg tablet TAKE 2 TABLETS BY MOUTH TODAY, THEN TAKE 1 TABLET DAILY FOR 4 DAYS DIRECTED active Not Available Not Available No t Available Lidocaine Viscous 2 % mucosal solution active Not Available Not Available Not Available fluconazole 150 mg tablet TAKE 1 TABLET BY MOUTH ONCE NEEDED FOR YEAST INFECTION . MAY REPEAT IN 1 WEEK IF NEEDED 02/08 completed Not Available Not Available Not Available amiodarone 200 mg tablet TAKE 2 TABLETS BY MOUTH ONCE DAILY active Not Available Not Available No t Available benzonatate 200 mg capsule TAKE 1 CAPSULE BY MOUTH THREE TIMES A DAY DIRECTED FOR 7 DAYS 08/04 completed Not Available Not Available Not Available hydrocodone 5 mg-acetamin ophen 325 mg tablet TAKE 1 TABLET BY MOUTH EVERY FOUR HOURS NEEDED FOR MODERATE PAIN 4-6 PAIN SCALE 01/14 completed Not Available Not Available Not Available fluconazole 200 mg tablet 1 (ONE) TABLET NOW AND REPEAT IN THREE DAYS 10/06 completed Not Available Not Available Not Available prednisone 20 mg tablet Take 1 tablet twice a day by oral route with meals for 5 days. 04/12 completed Not Available Not Available Not Available sertraline 100 mg tablet TAKE 1/2 TABLET EVERY DAY FIRST 6 DAYS THEN 1 TABLET EVERY DAY ALL SUBSEQUEN T DAYS 02/08 completed Not Available Not Available Not Available Cleocin 100 mg vaginal suppository INSERT 1 SUPPOSITO RY VAGINALLY AT BEDTIME FOR 3 NIGHTS 10/06 completed Not Available Not Available Not Available metronidazo le 500 mg tablet TAKE 1 TABLET BY MOUTH TWICE A DAY 06/27 completed Not Available Not Available Not Available hydroxyzine HCl 50 mg tablet TAKE 1/2 - 1 TABLET BY MOUTH EVERY 6 HOURS NEEDED FOR ANXIETY 02/08 completed Not Available Not Available Not Available tramadol 50 mg tablet TAKE 1 TABLET BY MOUTH TWICE A DAY NEEDED 06/23 completed Not Available Not Available Not Available spironolact one 25 mg tablet TAKE 1 TABLET DAILY active Not Available Not Available No t Available lamotrigine 25 mg tablet TAKE 2 TABLETS BY MOUTH EVERY NIGHT 02/08 completed Not Available Not Available Not Available prednisone 10 mg tablets in a dose pack TAKE 6 TABLETS ON DAY 1 DIRECTED ON PACKAGE AND DECREASE BY 1 TAB EACH DAY FOR A TOTAL OF 6 DAYS active Not Available Not Available No t Available terbinafine HCl 250 mg tablet TAKE 1 TABLET BY MOUTH EVERY DAY active Not Available Not Available No t Available famotidine 20 mg tablet TAKE 1 TABLET BY MOUTH 2 (TWO) TIMES A DAY NEEDED FOR INDIGESTI ON. active Not Available Not Available No t Available trazodone 100 mg tablet TAKE 1 TABLET BY MOUTH EVERY DAY AT NIGHT 02/08 completed Not Available Not Available Not Available dicyclomine 20 mg tablet TAKE 1 TABLET ORAL ROUTE 4 TIMES PER DAY NEEDED FOR ABDOMINAL PAIN 02/08 completed Not Available Not Available Not Available benzonatate 100 mg capsule TAKE 1 CAPSULE BY MOUTH THREE TIMES A DAY NEEDED FOR 5 DAYS 02/03 completed Not Available Not Available Not Available cephalexin 500 mg capsule TAKE 1 CAPSULE BY MOUTH TWICE A DAY FOR 10 DAYS 08/04 completed Not Available Not Available Not Available tobramycin 0.3 % eye drops INSTILL 2 DROPS INTO BOTH EYES THREE TIMES DAILY 10/06 completed Not Available Not Available Not Available buspirone 10 mg tablet TAKE 1 TABLET BY MOUTH TWICE A DAY 07/06 completed Not Available Not Available Not Available promethazin e 25 mg tablet TAKE 1/2-1 TABLET BY MOUTH EVERY 6 HOURS NEEED FOR PAIN 02/03 completed Not Available Not Available Not Available cephalexin 500 mg tablet Take 1 tablet twice a day by oral route for 10 days. 08/04 completed Not Available Not Available Not Available zolpidem 5 mg tablet TAKE 1 TABLET BY MOUTH WHEN HOOKING UP SLEEP STUDY MAY REPEAT X 1 IN 30 MINUTES 02/08 completed Not Available Not Available Not Available furosemide 20 mg tablet TAKE 1 TABLET BY MOUTH EVERY DAY FOR 90 DAYS 04/08 completed Not Available Not Available Not Available methylpredn isolone 4 mg tablets in a dose pack TAKE 6 TABLETS ON DAY 1 DIRECTED ON PACKAGE AND DECREASE BY 1 TAB EACH DAY FOR A TOTAL OF 6 DAYS active Not Available Not Available No t Available bromphenira mine-pseudo ephedrine-D M 2 mg-30 mg-10 mg/5 mL oral syrup TAKE 10 MILLILITE RS BY MOUTH EVERY 4 HOURS NEEDED active Not Available Not Available No t Available ondansetron 4 mg disintegrat ing tablet PLACE 1 TABLET ON THE TONGUE EVERY 8 HOURS NEEDED FOR NAUSEA AND VOMITING active Not Available Not Available No t Available cefdinir 300 mg capsule Take 1 capsule every 12 hours by oral route as directed for 10 days. 04/12 completed Not Available Not Available Not Available fluticasone propionate 50 mcg/actuati on nasal spray,suspe nsion SPRAY 2 SPRAYS INTO THE NOSTRIL DIRECTED BY PROVIDER DAILY. active Not Available Not Available No t Available naproxen 500 mg tablet TAKE 1 TABLET ORAL ROUTE EVERY 12 HOURS NEEDED 02/08 completed Not Available Not Available Not Available buspirone 15 mg tablet TAKE 1 TABLET BY MOUTH TWICE A DAY 02/08 completed Not Available Not Available Not Available azithromyci n 500 mg tablet TAKE 1 TABLET BY MOUTH EVERY DAY FOR 5 DAYS active Not Available Not Available No t Available Clindesse 2 % vaginal cream,exten ded release 1 APPLICATO R VAGINALLY AT BEDTIME 10/06 completed Not Available Not Available Not Available diclofenac 1 % topical gel APPLY 4 G TOPICALLY TO THE APPROPRIA TE AREA DIRECTED 3 (THREE) TIMES A DAY. 02/08 completed Not Available Not Available Not Available Stahist AD 25 mg-60 mg tablet TAKE 1 TABLET BY MOUTH EVERY 8 HOURS DIRECTED FOR 7 DAYS 06/23 completed Not Available Not Available Not Available Eliquis 5 mg tablet TAKE 1 TABLET TWICE DAILY active Not Available Not Available No t Available Farxiga 10 mg tablet Take 1 tablet every day by oral route for 90 days. 04/12 completed Not Available Not Available Not Available Jardiance 10 mg tablet TAKE 1 TABLET DAILY active Not Available Not Available No t Available Entresto 24 mg-26 mg tablet TAKE 1 TABLET TWICE DAILY active Not Available Not Available No t Available Ozempic 0.25 mg or 0.5 mg (2 mg/3 mL) subcutaneou s pen injector Inject 0.5 mg every week by subcutane ous route. active Not Available Not Available No t Available Vitals Date Recorded Body height Body mass index (BMI) Body weight Oxygen saturation Oxygen saturation in Arterial blood by Pulse oximetry Heart rate Systolic And Diastolic Provider Name and Address Organization Details Last Updated DateTime 5 154.94 cm 40.6 kg/m2 06828.3 6 g 100 % 100 % 86 /min 104/82 mm[Hg] Carinasa Anderson [facility] & [place] 5 14:08:32 Date Recorded Body height Body mass index (BMI) Body weight Body temperature Heart rate Systolic And Diastolic Provider Name and Address Organization Details Last Updated DateTime 5 154.94 cm 41.1 kg/m2 36602.7 g 98.2 [degF] 82 /min 130/82 mm[Hg] Criselda Bell [facility] [place] 5 10:31:13 Date Recorded Body height Body mass index (BMI) Body weight Body temperature Oxygen saturation Oxygen saturation in Arterial blood by Pulse oximetry Heart rate Systolic And Diastolic Provider Name and Address Organization Details Last Updated DateTime 5 154.94 cm 41.8 kg/m2 292198. 91 g 98.7 [degF] 99 % 99 % 83 /min 149/74 mm[Hg] Vane Mejia [facility] [place] 5 13:40:40 Date Recorded Body height Body mass index (BMI) Body weight Body temperature Oxygen saturation Oxygen saturation in Arterial blood by Pulse oximetry Heart rate Heart rate Provider Name and Address Organization Details Last Updated DateTime 5 154.94 cm 46.3 kg/m2 957801. 13 g 98.4 [degF] 98 % 98 % 84 /min 84 /min Leatha parrish [facility] [place] 5 14:49:40 Date Recorded Body height Body mass index (BMI) Body weight Body temperature Provider Name and Address Organization Details Last Updated DateTime 08/29/2024 154.94 cm 42.7 kg/m2 656805.59 g 98.5 [degF] Criselda Bell [facility] [place] 08/29/2024 09:08:29 Social History Question Answer Notes LastModified by [employer] Details LastModified Time Tobacco Smoking Status Current Every Day Smoker Carina crespo, [facility] [place] 02/09/2024 15:27:07 What Is Your Level Of Caffeine Consumption? Moderate [email or web address] Information not available 02/09/2024 How Much Tobacco Do You Smoke? 1 PPD [email or web address] Information not available 02/09/2024 How Many Years Have You Smoked Tobacco? 20 [email or web address] Information not available 07/17/2023 Sex: Unknown Functional Status Question Answer Note LastModified by [employer] Details LastModified Time Do you use any illicit or recreational drugs? No past user [email or web address] Information not available 02/09/2024 What is your level of alcohol consumption? Occasional Information not available 04/12/2024 Mental Status None recorded. Family History Nothing Reported. Medical History Condition Response Coronary Artery Disease N Gout N Other N None N Kidney Stones N Blood Diseases N Hyperthyroidism N Breast Cancer N Blood Transfusion N Hypothyroidism N Lung Disease N Depression N COPD N Developmental or Behavioral Disorders N Defects or Inherited Disease N Breast Problem N Difficulty Swallowing N Anesthesia Complications N Anxiety Disorder N Meniere's disease N Muscle, Joint, or Bone Problems N Vision or Eye Problems Y Arthritis N Infertility N Polyps N Cancer N Stroke N Varicosities N Endometriosis N Bladder or Kidney Problems N High Cholesterol N Liver Disease N Headaches N Fibromyalgia N Kidney Disease N Allergies/Hayfever N Heart Problems N Ear or Hearing Problems N Hospitalizations N Thyroid Problems N GI Problems N ADD/ADHD N Eating Disorder N Skin Problems N Anemia N Constipation N Mental Illness N Diabetes N Ovarian Cancer N Bedwetting N Seizures/Epilepsy N Tuberculosis N Congestive Heart Failure (CHF) Y Eczema N Abuse/Domestic Violence N Diverticulitis N Asthma N Reflux/GERD N Jaundice N Hepatitis N Heart Disease N Pulmonary Embolism N Chronic Ear Infections N Pre-Eclampsia N Hypertension Y Chicken Pox N Autism Spectrum Disorder (ASD) N Osteoporosis N Thrombophilias N Gynecological HistoryNo gynecological history recorded. 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,[address] [place] [address] 01/14/2022 14:18:13 01/14/2022 15:08:49 Cough 29913170 R05.9 Acute otitis media 90694 03 H66.91 [id number] Mehreen Hodges in, BILL POSTER INSTALLER [facility] [address] [place] [address] 02/03/2022 09:48:09 02/03/2022 10:37:15 Fever 814355665 R50.9 Acute otitis media 53774 03 H66.92 [id number] Loki Vu MD [facility] [address] [place] [address] 04/08/2022 15:01:35 04/08/2022 16:12:50 Dilated cardiomyopathy 660960046 I42.0 Non-ischem ic cardiomyop athy. Clinically well compensate d and euvolemic. Continue current heart failure regimen Sodium restrict to less than 2 g a day, fluid restrict to less than 64 oz /2 L a day Daily weights Automatic implantable cardiac defibrillator in situ 335359595 Z95.810 Medtronic ICD interrogat ed today. Essential hypertension 10606808 I10 Continue current medication . Keep log Low-salt diet < 2 gm Na/day, Regular exercise Weight loss Cigarette smoker 6448995 7 F17.210 Unfortunat elías not motivated to quit.Compl ete smoking cessation strongly urged Dyspnea on exertion 6084 5006 R06.09 Echo to evaluate EF, diastolic function, valves and pulmonary pressures [id number] Nata Noel DNP, ETIENNEC, ANIYAH [facility] [address] [facility],[address] [place] [address] 06/23/2022 13:55:57 06/23/2022 14:23:33 Acute sinusitis 53633391 J01.90 Acute left otitis media 197285701 H66.92 [id number] Nata Noel DNP, ETIENNEC, ANIYAH [facility] [address] [facility],[address] [place] [address] 08/04/2022 13:04:16 08/04/2022 13:31:44 Bullous myringitis of left ear 1306942962 846696 H73.012 patient advised to take medication as prescribed . Will take tylenol/ib uprofen for pain. Will return if condition persists. [id number] Nata Noel DNP, YASMIN, ANIYAH [facility] [address] [facility] [place] [address] 09/25/2022 13:12:11 09/25/2022 13:50:38 Pain in throat 873895055 R07.0 Streptococ jesusita sore throat 24843388 J02.0 Acute otitis media 69067 03 H66.91 [id number] Loki Vu MD [facility] [address] [place] [address] 10/07/2022 14:34:14 10/07/2022 14:50:36 Dilated cardiomyopathy 916674578 I42.0 Non-ischem ic cardiomyop athy. Clinically well compensate d and euvolemic. Continue current heart failure regimen Sodium restrict to less than 2 g a day, fluid restrict to less than 64 oz /2 L a day Daily weights Automatic implantable cardiac defibrillator in situ 818951982 Z95.810 Medtronic ICD interrogat ed today. No arrhythmia s Essential hypertension 97120884 I10 Continue current medication . Keep log Low-salt diet < 2 gm Na/day, Regular exercise Weight loss Cigarette smoker 0908748 7 F17.210 Unfortunat elías not motivated to quit.Compl ete smoking cessation strongly urged [id number] Chelsea Fonseca APRN [facility] [address] [facility],[address] [place] [address] 12/12/2022 15:45:09 12/12/2022 16:49:25 Cough 31223956 R05.9 Acute uppe r respiratory infection 55171402 J06.9 [id number] Loki Vu MD [facility] [address] [place] [address] 12/23/2022 15:33:41 12/23/2022 15:55:46 Dilated cardiomyopathy 709776982 I42.0 Non-ischem ic cardiomyop athy.Clini keegan well compensate d and euvolemic. Continue current heart failure regimen including Coreg and Entresto Lasix PRNSodium restrict to less than 2 g a day, fluid restrict to less than 64 oz /2 L a dayDaily weights Automatic implantable cardiac defibrillator in situ 271723595 Z95.810 Medtronic ICD Essential hypertension 64476363 I10 Continue current medication .Keep logLow-edwin t diet < 2 gm Na/day,Reg ular exerciseWe ight loss Cigarette smoker 8429843 7 F17.210 Unfortunat elías not motivated to quit.Compl ete smoking cessation strongly urged [id number] Fran Fonseca MD [facility] [address] [facility],[address] [place] [address] 03/03/2023 13:12:47 03/03/2023 14:18:36 Acute sinusitis 38662071 J01.90 Candidiasis of vagina 72 335025 B37.31 Frequent yeast with antibiotic s, will cover for this with Diflucan. [id number] Chelsea Fonseca APRN [facility] [address] [facility],[address] [place] [address] 05/11/2023 07:26:01 05/11/2023 08:11:17 Cough 13654071 R05.9 Acute uppe r respiratory infection 02747828 J06.9 [id number] Fran Fonseca MD [facility] [address] [facility],[address] [place] [address] 06/28/2023 15:00:16 06/28/2023 15:38:08 Pain in throat 021732907 R07.0 Upper resp iratory infection 02923773 J06.9 Presumed viral illness. Rest, plenty of fluids, OTC symptomati c treatment. Return for failure to improve over the next several days or sooner if worsening. Discussed steroids for symptoms and patient agrees to taking these but states she has some at home that she can take. [id number] Loki Vu MD [facility] [address] [facility] [address] [place] [address] 07/07/2023 13:33:18 07/07/2023 14:12:57 Dilated cardiomyopathy 311104417 I42.0 Non-ischem ic cardiomyop athy.Clini keegan well compensate d and euvolemic. Continue current heart failure regimen including Coreg and Entresto Lasix PRNSodium restrict to less than 2 g a day, fluid restrict to less than 64 oz /2 L a dayDaily weights Essential hypertension 89841135 I10 Continue current medication .Keep logLow-edwin t diet < 2 gm Na/day,Reg ular exerciseWe ight loss Automatic implantable cardiac defibrillator in situ 131447463 Z95.810 Medtronic ICD Cigarette smoker 9165054 7 F17.210 Complete smoking cessation strongly urged.Risk s associated with smoking including cardiovasc ular affects of MS stroke in addition to high risk of long bladder and other cancers were discussed. Tips and resources provided as noted below We discuss many products that can help you quit smoking. These products include a nicotine patch, gum, lozenge, nasal spray, and inhaler or other prescripti on medication sPatient is not motivated to quit at this point. For more helpful tips and resources, visit:[facility] [place] s smoke-free programs at www.smokef ree.gov 877-44U-QU IT ) Total of 7 minutes were spent discussing the above Hypertensive disorder 38 947824 I10 [id number] Loki Vu MD [facility] [address] [facility] [address] [place] [address] 07/17/2023 14:02:14 07/17/2023 14:25:52 Dilated cardiomyopathy 030215522 I42.0 Non-ischem ic cardiomyop athy.Clini keegan well compensate d and euvolemic. Continue current heart failure regimen including Coreg and Entresto Lasix PRNSodium restrict to less than 2 g a day, fluid restrict to less than 64 oz /2 L a dayDaily weights Essential hypertension 38591557 I10 Continue current medication .Keep logLow-edwin t diet < 2 gm Na/day,Reg ular exerciseWe ight loss Automatic implantable cardiac defibrillator in situ 331132231 Z95.810 Medtronic ICD Cigarette smoker 3945261 7 F17.210 she has now quit smoking Pre-surger y evaluation 329933955 Z01.818 reasonable functional capacity. LVEF around 20%she has been medically optimized and is euvolemicP atient is low risk for cardiovasc ular complicati ons.No further cardiac testing warranted at this point. [id number] Sourav Pompa PA-C [facility] [address] [place] [address] 11/08/2023 11:17:15 11/08/2023 12:20:12 Acute sinusitis 92398788 J01.90 Otalgia of left ear 1010 927206 H92.02 [id number] Sourav Pompa PA-C [facility] [address] [facility] [address] [place] [address] 01/23/2024 14:07:56 01/23/2024 14:41:50 Acute streptococcal pharyngitis 5100361237 J02.0 Recurrent candidiasis of vagina 650706448 B37.32 [id number] Loki Vu MD [facility] [place] [address] [facility] [address] [place] [address] 02/09/2024 15:18:09 02/09/2024 16:27:36 Dilated cardiomyopathy 215724528 I42.0 Non-ischem ic cardiomyop athy.Clini keegan well compensate d and euvolemic. Continue current heart failure regimen including Coreg and Entresto .Add Farxiga. will plan to add Aldactone at next visitSodiu m restrict to less than 2 g a day, fluid restrict to less than 64 oz /2 L a dayDaily weights Essential hypertension 03303222 I10 Continue current medication .Keep logLow-edwin t diet < 2 gm Na/day,Reg ular exerciseWe ight loss Automatic implantable cardiac defibrillator in situ 514451068 Z95.810 Medtronic ICD Cigarette smoker 6552156 7 F17.210 Complete smoking cessation strongly urged.Risk s associated with smoking including cardiovasc ular affects of MS stroke in addition to high risk of long bladder and other cancers were discussed. Tips and resources provided as noted below We discuss many products that can help you quit smoking. These products include a nicotine patch, gum, lozenge, nasal spray, and inhaler or other prescripti on medication sNot motivated to quit For more helpful tips and resources, visit:[facility] [place] s smoke-free programs at www.smokef ree.gov 877-44U-QU IT ) Total of 4 minutes were spent discussing the above Ventricula r fibrillation 27392625 I49.01 Terminated with ICD shock. We talked about antiarrhyt hmic therapy with sotalol /amiodaron e. Would avoid amiodarone given young age. Patient wishes to restart sotalol and get back to us. She should avoid the following drugs under current medication s trazodone, Ambien and hydroxyzin e. These medication s were initially on a list but she reports not taking any of these meds.I have also asked her to make sure when she is prescribed medication s to check with the provider that it does not have QT prolonging properties .Stay well-hydra vincent potassium and magnesium replete. Continue beta blockade [id number] Fran Fonseca MD [facility] [address] [place] [address] 02/13/2024 11:50:13 02/13/2024 12:58:49 Sore throat 568875054 J02.9 Pain in throat 208652923 R07.0 Streptococ jesusita sore throat 91364915 J02.0 Change toothbrush in 2-3 days [id number] Loki Vu MD [facility] [address] [place] [address] 04/12/2024 13:55:39 04/12/2024 14:41:09 Ventricular fibrillation 81484687 I49.01 Terminated with ICD shock. We talked about antiarrhyt hmic therapy with sotalol /amiodaron e. Would avoid amiodarone given young age. Patient declines any antiarrhyt hmic therapy. No further episodes noted on device interrogat ion today. She should avoid the following drugs under current medication s trazodone, Ambien and hydroxyzin e. These medication s were initially on a list but she reports not taking any of these meds.I have also asked her to make sure when she is prescribed medication s to check with the provider that it does not have QT prolonging properties .Stay well-hydra vincent potassium and magnesium replete. Continue beta blockade Dilated cardiomyopathy 558469905 I42.0 Non-ischem ic cardiomyop athy.Clini keegan well compensate d and euvolemic. She declines Farxiga/Al dactoneCon tinue current heart failure regimen including Coreg and Entresto .Sodium restrict to less than 2 g a day, fluid restrict to less than 64 oz /2 L a dayDaily weights Essential hypertension 96161198 I10 Continue current medication .Keep logLow-edwin t diet < 2 gm Na/day,Reg ular exerciseWe ight loss Automatic implantable cardiac defibrillator in situ 955437953 Z95.810 Medtronic ICD device interrogat ed today. Cigarette smoker 1856095 7 F17.210 Complete smoking cessation strongly urged.Risk s associated with smoking including cardiovasc ular affects of MS stroke in addition to high risk of long bladder and other cancers were discussed. Tips and resources provided as noted below We discuss many products that can help you quit smoking. These products include a nicotine patch, gum, lozenge, nasal spray, and inhaler or other prescripti on medication sNot motivated to quit For more helpful tips and resources, visit:[facility] [place] [place] smoke-free programs at www.smokef ree.gov 877-44U-QU IT ) Total of 5 minutes were spent discussing the above [id number] Fran Fonseca MD [facility] [address] [place] [address] 04/25/2024 10:04:17 04/25/2024 11:05:05 Sore throat 323169057 J02.9 Upper resp iratory infection 76212885 J06.9 Presumed viral illness. Rest, plenty of fluids, OTC symptomati c treatment. Return for failure to improve over the next several days or sooner if worsening. Steroids for symptoms. [id number] LYSSA ONEILL NP [facility] [address] [facility] [address] [place] [address] 05/28/2024 13:34:08 05/28/2024 14:09:03 Viral syndrome 783115816 B34.9 Sore throat 509531184 J0 2.9 Nausea 236099122 R11.0 [id number] Sourav Pompa PA-C [facility] [address] [facility] [address] [place] [address] 07/17/2024 14:38:52 07/17/2024 15:09:26 Acute pharyngitis 186063258 J02.9 Acute righ t otitis media 234534212 H66.91 Acute cough 8369399660 22705289 R05.1 [id number] Fran Fonseca MD [facility] [address] [facility] [address] [place] [address] 08/29/2024 08:58:44 08/29/2024 09:29:10 Sore throat 690174447 J02.9 Upper resp iratory infection 50094737 J06.9 Presumed viral illness. Rest, plenty of fluids, OTC symptomati c treatment. Return for failure to improve over the next several days or sooner if worsening. Check [facility] for confirmati on as patient clearly wanted antibiotic s. Will send in [facility] for symptoms. Health Concerns Section Related Observation LastModified by Organization Detai ls LastModified Time None Recorded Concern Status LastModified by Organization Details LastModified Time None Recorded Advance Directives Directive None Recorded Payers Insurance Date Sequence Insurance Name Policy Number Policy Medina Covered Member ID Medina Member ID Guarantor Name 08/29/2024 2 [place] [facility] - FFS/TRADITIO NAL Osman Aragon [id number] [facility] 04/18/2024 1 UMR [id number] Osman Aragon [id number] [facility] 02/06/2022 1 *SELF PAY* Ke eric Aragon 04/18/2024 1 R [id number] Osman Garayer [id number] Osman Aragon 04/18/2024 2 [facility] - UMR (PPO) Osman Garayer [id number] Osman Aragon 04/18/2024 3 MEDICAID-[facility] CHO[facility] - FFS/TRADITIO NAL Osman Aragon [id number] Osman Aragon 10/01/2024 1 [employer] [place] (MEDICA[place] HMO) Osman Garayer [id number] Osman Aragon 04/18/2024 2 [facility] Osman Aragon [id number] Osman Aragon 04/18/2024 1 R [id number] Osman Garayer [id number] Osman Aragon Notes Date Note Type Note Provider Name and Address Organization Details Recorded Time 04/12/2024 text/html 43-year-old sindy raza who is here for fu NICM Patient did not start taking Farxiga.She declines antiarrhythmic therapy. Device interrogated today with no further V-tach or VFib episodes.She unfortunately continues to smoke, not motivated to quit.No specific cardiovascular complaints today. No chest pain, shortness of breath, PND, orthopnea, peripheral edema, palpitations, presyncope, syncope . Medtronic single-chamber ICD interrogated today RV paced 0.1%No arrhythmias. Appropriately threshold and impedanceBattery life for over 10 years. No programming changes made. Please see scanned report for further specifics. + NICM -clinically well compensated+ status post Medtronic ICD+ smoker 1 pack a day x 20yrs+ family historyHer mother is a patient of mine who has a history of nonischemic cardiomyopathy. She has an uncle who had cardiomyopathy and in his 40s. Echo 06/2022:Severely dilated LV with severely decreased function. The ejection fraction is 20-25%. Elevated LV filling pressures. Moderately dilated left atrium.There is mild mitral regurgitation. Normal PA pressure (17 mmHg).No major changes compared to 12/04/2020, LVEF was 20-25% CTA 10/2020 showed nml coronaries Labs 09/03/2020: BUN/creatinine 15/0.8, LFTs normalLipids 126/39/69/89Hemoglobi n/hematocrit 13/41 EKG 02/09/2024 NSR 84 IA interval 158 QRS 90 QTC 439EKG 07/17/2023 NSR 76, IA interval 144 QRS 94 QTC 454EKG 09/03/2020: NSR with inferior lateral T-wave inversions V4-V6.Echo 09/03/2020: Severely dilated LV with EF 20 25%, moderately dilated left atria, mild MR. Loki Vu MD [address] [facility] [place], [address], [facility] & [place] 04/12/2024 14:44:22 04/25/2024 text/html 2-3 days sore th roat, congestion, headaches, fatigue. Granddaughter positive for flu Fran Fonseca MD [address], [place], [address], [facility] - [facility] & [place] 04/25/2024 11:05:57 05/28/2024 text/html 43-year-old sindy raza patient presents to clinic with complaint of viral symptoms and sore throat over the past 2 days. Denies any known exposure to anyone with similar symptoms. Denies fever or severe shortness of breath. Reports decreased appetite with good fluid intake. Has taken heoa-rxl-lzkeqag medications with little relief. LYSSA ONEILL NP [address] , [place], [address], [facility] & [place] 05/28/2024 14:12:34 07/17/2024 text/html 44-year-old sindy raza presents to the clinic complaining of sore throat, right ear pain, intermittent cough, and general malaise that began on and has persisted. Patient denies fever, vomiting, diarrhea, or any other symptoms. Sourav Pompa PA-C [address] , [place], [address], [facility] & [place] 07/17/2024 15:14:57 08/29/2024 text/html Yesterday develo ped headache, sore throat, low grade fever, fatigue, body aches and feeling poorly. Fran Fonseca MD [address], [place], [address], [facility] [place] & [place] 08/29/2024 09:28:31 OBGyn Episode No OBEpisode recorded.
--- OUTSIDE RECORDS SUMMARY | 2024-10-05 13:17 | XMS_ITS | Encounter Summary ---
Author Organization [employer] ([place], [place], [place], [place]) Address [address] [place] [address] Care Team Providers Care Study Abroad Advisor Name Role Phone Carlos Carrion MD Unavailable Bernardo Bashir MD Primary Care Provider [phone] Encounter Details Date Type Department Care Team (Late st Contact Info) Description 01/31/2021 Transcribed Document [facility] [address] [place] [address] ProviderNehemiah MD [address] [place] [address] Social History Tobacco Use Types [...] Conversion Note - Historical Provider, - 01/31/2021 4:36 PM PROJECT DEVELOPMENT LEADER On Going Discharge Planning Entered On: 01/31/2021 16:36 EST Performed On: 01/31/2021 16:36 EST by URVASHI HONEYCUTT, FATOU-Manager RevenueSuperintendent Measurement Progress Note Discharge Arrangements : Patient Post-Acute Information Patient Name: OSMAN ARAGON Gender: Female : [birth year] Age: 40 Years No Post-Acute Placement(s) Listed No Post-Acute Service(s) Listed No [place] Referral(s) Listed Is the Patient Meeting Medical Necessity : Yes Did you Attend Multidisciplinary Rounds? : Yes URVASHI HONEYCUTT RN-Manager Revenue - 01/31/2021 16:36 EST Narrative Progress Note Narrative Progress Note : rrs low cm chart review - patient not available . patient was admitted for possible infection of surgical site . patient has pacer placed 01/16. consults to id,card. cm will follow and arrange all discharge needs URVASHI HONEYCUTT RN-Manager Revenue - 01/31/2021 16:36 EST Electronically signed by Melyssa [facility] Conversion Claim Rep Cerner at 07/08/2022 8:46 AM CDT documented in this encounter Plan of Treatment Upcoming Encounters Date Type Department Care Team (Late st Contact Info) Description 11/17/2024 9:30 AM EDT Office Visit [facility] Electrophysiology [address] [place] [address] Carlos Carrion MD [address] [place] [address] documented as of this encounter Visit Diagnoses Not on filedocumented in this encounter Care Teams Study Abroad Advisor Relationship Specialty Start Date End Date Bernardo Bashir MD [address] [place] [address] PCP - General Family Medicine 05/13/24 Carlos Carrion MD [address] [place] [address] Paint Grinder Electrophysiology 12/28/23 documented as of this encounter
--- OUTSIDE RECORDS SUMMARY | 2024-10-05 13:17 | XMS_ITS | Encounter Summary ---
Author Organization [employer] ([place], [place], [place], [place]) Address [address] [place] [address] Care Team Providers Care Scientific Software Developer Name Role Phone Carlos Carrion MD Unavailable Bernardo Bashir MD Primary Care Provider [phone] Encounter Details Date Type Department Care Team (Late st Contact Info) Description 01/31/2021 Transcribed Document [facility] Family Medicine [address] [place] [address] ProviderNehemiah MD [address] [place] [address] Social History Tobacco Use Types [...] Conversion Note - Historical Provider, - 01/31/2021 11:13 AM [employer] HR DEVELOPER UM Authorization Entered On: 01/31/2021 11:13 EST Performed On: 01/31/2021 11:13 EST by Nataliya eKita Rn-Utilization Review Primary Insurance Authorization Authorization and Policy Numbers : Insurance 1 Health Plan: [facility] Policy Number: [id number] Authorization Number: Insurance Primary Name : [facility] Policy Number: [id number] Authorization Status-Primary : Awaiting callback Authorized Service Begin Date-Primary : 01/30/2021 EST Historical Authorization Comments-Primary : No Authorization Comments Found Nataliya Keita Rn-Utilization Review - 01/31/2021 11:13 EST Electronically signed by Melyssa [facility] Conversion Access Rep Cerner at 07/08/2022 8:53 AM CDT documented in this encounter Plan of Treatment Upcoming Encounters Date Type Department Care Team (Late st Contact Info) Description 11/17/2024 9:30 AM EDT Office Visit [facility] Electrophysiology [address] [place], [place] [address] Carlos Carrion MD [address] [place], [place] [phone] documented as of this encounter Visit Diagnoses Not on filedocumented in this encounter Care Teams Scientific Software Developer Relationship Specialty Start Date End Date Bernardo Bashir MD [address] [place] [address] PCP - General Family Medicine 05/13/24 Carlos Carrion MD [address] [place], [place] [id number] Railroad Track Repair Supervisor Electrophysiology 12/28/23 documented as of this encounter
--- OUTSIDE RECORDS SUMMARY | 2024-10-05 13:17 | XMS_ITS | Encounter Summary ---
Author Organization [employer] ([place], [place], [place], [place]) Address [address] [place] [address] Care Team Providers Care Belt Weaver Name Role Phone Carlos Carrion MD Unavailable Bernardo Bashir MD Primary Care Provider [phone] [phone] Encounter Details Date Type Department Care Team (Late st Contact Info) Description 02/04/2021 Transcribed Document [facility] [place] Medicine [address] [place] [address] ProviderNehemiah MD [address] [place] [address] Social History Tobacco Use Types [...] Conversion Note - Nehemiah ProviderMD - 02/04/2021 1:15 PM PAINTER HELPER SPRAY UM Authorization Entered On: 02/04/2021 13:17 EST Performed On: 02/04/2021 13:15 EST by Jocy Fonseca, Pulp Roller Primary Insurance Authorization Authorization and Policy Numbers : Insurance 1 Health [facility] Policy Number: [id number] Authorization Number: Insurance Primary Name : [facility] Policy Number: [id number] Authorization Status-Primary : Apprv contin stay Reference Number-Primary : [id number] Authorization Number-Primary : [id number] Number of Days Authorized-Primary : 9 Day(s) Authorized Service Begin Date-Primary : 01/30/2021 EST Authorized Service End Date-Primary : 02/08/2021 EST Authorization Comments-Primary : Continued stay authorized per fax 02/04/21 @ 1117. This request for inpatient services has been approved x10 days. Next review due 02/09/21. -Jessica Tinoco Historical Authorization Comments-Primary : Comment 1: inpt approved per fax from [facility] 01/31/21 auth# [id number] NRD 02/04/21 (MIHAELA MALONE, Counseling Services Director 01/31/2021 14:43) Comment 2: AUTH SUBMITTED VIA PORTAL W/ CLINICAL ATTACHED (Nataliya Keita, Rn-Utilization Review 01/31/2021 11:20) Jocy Fonseca, Pulp Roller - 02/04/2021 13:15 EST Electronically signed by [facility] Conversion Pourer Crane Ladle Cerner at 07/08/2022 8:47 AM CDT documented in this encounter Plan of Treatment Upcoming Encounters Date Type Department Care Team (Late st Contact Info) Description 11/17/2024 9:30 AM EDT Office Visit [facility] Electrophysiology [address] [place], [place] [phone] Carlos Carrion MD [address] [place] [address] [address] [place] [phone] documented as of this encounter Visit Diagnoses Not on filedocumented in this encounter Care Teams Belt Weaver Relationship Specialty Start Date End Date Bernardo Bashir MD [address] [place] [address] PCP - General Family Medicine 05/13/24 Carlos Carrion MD [address] [place] [address] [address] [place] [address] Casting Carrier Electrophysiology 12/28/23 documented as of this encounter
--- OUTSIDE RECORDS SUMMARY | 2024-10-05 13:17 | XMS_ITS | Encounter Summary ---
Author Organization [employer] ([place], [place], [place], [place]) Address [address] [place] [address] Care Team Providers Care Framing Mechanic Name Role Phone Carlos Carrion MD Unavailable Bernardo Bashir MD Primary Care Provider [phone] [phone] Encounter Details Date Type Department Care Team (Late st Contact Info) Description 01/31/2021 Transcribed Document [facility] [place] [address] [place] [address] ProviderNehemiah MD [address] [place] [address] Social History Tobacco Use Types [...] Conversion Note - Historical ProviderMD - 01/31/2021 4:33 PM LEHR STRIPPER Initial Discharge Planning Entered On: 01/31/2021 16:36 EST Performed On: 01/31/2021 16:33 EST by URVASHI HONEYCUTT RN-Land Manager Initial Assessment I Previously Documented Living Environment : No qualifying data available. Living Situation : Home Emergency Contact #1 : Randall Aragon Emergency Contact #1 Phone Number : [phone] Emergency Contact #1 Relationship : Father Emergency Contact #2 : n/a Emergency Contact #2 Phone Number : n/a Emergency Contact #2 Relationship : n/a URVASHI HONEYCUTT, RN-Land Manager - 01/31/2021 16:33 EST Initial Assessment II Sensory and Motor Deficits : None Current Home Treatments and Equipment : None URVASHI HONEYCUTT RN-Land Manager - 01/31/2021 16:33 EST Narrative Note Narrative Note : rrs low cm chart review - patient not available . patient was admitted for possible infection of surgical site . patient has pacer placed 01/16. consults to id,card. cm will follow and arrange all discharge needs URVASHI HONEYCUTT RN-Land Manager - 01/31/2021 16:33 EST Electronically signed by Melyssa [facility] Conversion Licensed Clinical Psychologist Cerner at 07/08/2022 8:51 AM CDT documented in this encounter Plan of Treatment Upcoming Encounters Date Type Department Care Team (Late st Contact Info) Description 11/17/2024 9:30 AM EDT Office Visit [facility] Electrophysiology [address] [place] [address] Carlos Carrion MD [address] [place] [address] documented as of this encounter Visit Diagnoses Not on filedocumented in this encounter Care Teams Framing Mechanic Relationship Specialty Start Date End Date Bernardo Bashir MD [address] [place] [address] PCP - General Family Medicine 05/13/24 Carlos Carrion MD [address] [place] [address] [address] Building Performance Specialist Electrophysiology 12/28/23 documented as of this encounter
--- OUTSIDE RECORDS SUMMARY | 2024-10-05 13:17 | XMS_ITS | Clinical Summary ---
Author Organization [facility] Address [address] [facility] [address] [place] [address] Phone Care Team Providers Care Uniform Designer Name Role Phone Greta Saleem MD [ ] Conditions or Problems Problem Name Problem Code Onset Date Status Entry Date Provider Comment Standard Description Annotate Cardiac device/implant/g raft, infection/inflam matory reaction, subsequent encounter(s) T82.7xxD (ICD-10-C M) 04/13 Active 04/13 Teresa Man Infection and inflammatory reaction due to other cardiac and vascular devices, implants and grafts, subsequent encounter Cellulitis/wound infection, chest wall 77944686 (SNOMED CT) 04/13 Active 04/13 Teresa Man Cellulitis of chest wall Morbid obesity due to excess calories E66.01 (ICD-10-C M) 04/13 Active 04/13 Teresa Man Morbid (severe) obesity due to excess calories Nonischemic cardiomyopathy 13476257 (SNOMED CT) 04/13 Active 04/13 Teresa Man Cardiomyopathy Nicotine dependence, cigarettes F17.210 (ICD-10-C M) 04/13 Active 04/13 Teresa Man Nicotine dependence, cigarettes, uncomplicated Hx of noncompliance with medical treatment and regimen Z91.19 (ICD-10-C M) 04/13 Active 04/13 Teresa Man Patient's noncompliance with other medical treatment and regimen Benign Essential Hypertension 87963276 (SNOMED CT) 04/13 Active 04/13 Teresa Man Benign hypertension Medications Medication Instructions Start Date Stop Date Generic Name NDC Provider CARVEDILOL 6.25 MG TABS 1 tab twice daily carvedilol 08062215146 Ha Mckenziei CLINDAMYCIN HCL 300 MG CAPS 1 cap every 8 hrs clindamycin hcl 29354890223 Ha Mckenziei ENTRESTO 24-26 MG TABS 1 tab twice daily sacubitril-valsa rtan [id number] Ha Mckenziei FLUTICASONE PROPIONATE 50 MCG/ACT SUSP 2 sprays daily as needed fluticasone propionate 66646569784 Ha Garett FUROSEMIDE 20 MG TABS 1 tab daily furosemide 57582295075 Ha Mckenziei LEVOCETIRIZINE DIHYDROCHLORIDE 5 MG TABS 1 tab every night levocetirizine 65665710711 Ha Mckenziei Medications Administered No information available. Allergies, Adverse Reactions, Alerts Allergy Name Reaction Description Start Date Severity Statu s Provider VANCOMYCIN HCL Moderate Active William a Garett PENICILLIN G POT IN DEXTROSE Moderate Active Krima Garett Results Date Name Value Unit Range Flag Description Clinical Lists Update: Prelo ad SMOK STATUS Current every da y smoker Tobacco smoking status Plan of Care No information available. Procedures No information available. Vital Signs No information available. Immunizations No information available. Advance Directives No information available.
--- OUTSIDE RECORDS SUMMARY | 2024-10-05 13:17 | XMS_ITS | Encounter Summary ---
Author Organization [employer] ([place], [place], [place], [place]) Address [address] [place] [address] Care Team Providers Care Social Welfare Research Worker Name Role Phone Sukhwinder Carrion MD Unavailable Bernardo Bashir MD Primary Care Provider [phone] [phone] Encounter Details Date Type Department Care Team (Late st Contact Info) Description 01/31/2021 Transcribed Document [facility] [place] Family Medicine [address] [place] [address] ProviderNehemiah MD [address] [place] [address] Social History Tobacco Use Types Packs/Day [...] Conversion Note - Nehemiah ProviderMD - 01/31/2021 1:10 PM STATION MASTER Patient: OSMAN ARAGON Age: 40 years Sex: Female : 1980 Associated Diagnoses: None Author: SUKHWINDER CARRION MD-CAR Basic Information PCP: unknown Roper Operator: Loki Vu MD Chief Complaint Possible surgical site infection. Single-chamber AICD implant on 01/16/2021 and patient reported swelling, tenderness, erythema and drainage at clinic visit on 01/29/2021 and admission to [facility] for further management was arranged. History of Present Illness 40 years old female referred by Dr. Vu for consideration of an ICD in the primary prevention. She has a past medical history of nonischemic cardiomyopathy discovered a few months ago as she was becoming increasingly more short of breath with minimal activity. Her CTA suggests normal coronaries. 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 Her EF was 20-25% and she has a severely dilated LV. This remained unchanged in November 2020 while on maximum guideline directed medical therapy. Her heart failure NYHA is close to 3. She also has essential hypertension, is a smoker and has a history of cocaine use. Patient underwent successful single-chamber Medtronic AICD implant on 01/16/2021, however she did experience significant pain once she was discharged home requiring a short course of pain medication. She returned to clinic on 01/25/2021 for a wound check which revealed a well healing incision that was without drainage or erythema, however it was mildly tender to touch. On 01/29/2021 she returned to clinic with new complaints of drainage from her incision. After examination, it was decided that patient would be admitted to [facility] the following day for initiation of IV antibiotics with the hopes of salvaging her implant. Review of Systems Constitutional: Negative except as documented in history of present illness. Eye: Negative except as documented in history of present illness. Ear/Nose/Mouth/Throat: Negative except as documented in history of present illness. Respiratory: Negative except as documented in history of present illness. Cardiovascular: Negative except as documented in history of present illness. Gastrointestinal: Negative except as documented in history of present illness. Genitourinary: Negative except as documented in history of present illness. Hematology/Lymphatics: Negative except as documented in history of present illness. Endocrine: Negative except as documented in history of present illness. Immunologic: Negative except as documented in history of present illness. Musculoskeletal: Negative except as documented in history of present illness. Integumentary: Negative except as documented in history of present illness. Neurologic: Negative except as documented in history of present illness. Psychiatric: Negative except as documented in history of present illness. Health Status Allergies (1) Active Reaction vancomycin None Documented Home Medications (6) Active carvedilol 6.25 mg oral tablet 6.25 mg = 1 Tab, Oral, BID Entresto 24 mg-26 mg oral tablet 1 Tab, Oral, BID fluticasone 50 mcg/inh nasal spray 2 [place], PRN, Nasal, Daily furosemide 20 mg oral tablet 20 mg = 1 Tab, Oral, Daily levocetirizine 5 mg oral tablet 5 mg = 1 Tab, Oral, QPM terbinafine 250 mg oral tablet 250 mg = 1 Tab, Oral, Daily Allergies: Allergic Reactions (Selected) Severity Not Documented Penicillin- No reactions were documented. Vancomycin- No reactions were documented., Allergies (1) Active Reaction vancomycin None Documented Current medications: (Selected) Inpatient Medications Ordered Benadryl: 25 mg, Oral, Q8H Core.25 mg, Oral, BID DAPTOmycin + Sodium Chloride 0.9% intravenous solution 50 mL: 500 mg, 10 mL, 120 mL/Hr, IV Piggyback, 1-Time DAPTOmycin + Sodium Chloride 0.9% intravenous solution 50 mL: 500 mg, 10 mL, 120 mL/Hr, IV Piggyback, [id number] DuoNeb 0.5 mg-2.5 mg/3 mL inhalation solution: [...] Refill(s) fluticasone 50 mcg/inh nasal spray: 2 [place], Nasal, Daily, PRN: Nasal Congestion, 16 Gram, 0 Refill(s) furosemide 20 mg oral tablet: 1 Tab, Oral, Daily, 0 Refill(s) levocetirizine 5 mg oral tablet: 1 Tab, Oral, QPM, 30 Tab, 0 Refill(s) terbinafine 250 mg oral tablet: 1 Tab, Oral, Daily, Prescribed on 01/07/2021 x 30 days, 0 Refill(s), Medications (18) Active Scheduled: (9) #NaCl 0.9% *FLUSH* inj 10 mL 10 mL, IV Push, Q8H carvedilol 6.25 mg tab 6.25 mg 1 Tab, Oral, BID DAPTOmycin + NaCl 0.9% 50 mL 500 mg 10 mL, IV Piggyback, [id number] DAPTOmycin + NaCl 0.9% 50 mL 500 mg 10 mL, IV Piggyback, 1-Time diphenhydrAMINE 25 mg tab 25 mg 1 Tab, Oral, Q8H furosemide 20 mg tab 20 mg 1 Tab, Oral, Daily nicotine 21 mg/24 hr patch 1 Patch, TransDermal, Daily sacubitril-valsartan 24 mg-26 mg tab 1 Tab, Oral, BID senna/docusate 8.6/50 mg tab 1 Tab, Oral, BID Continuous: (1) NaCl 0.9% 1,000 mL 1,000 mL, IntraVENous, 100 mL/Hr PRN: (8) acetaminophen 325 mg tab 650 mg 2 Tab, Oral, Q4H acetaminophen 325 mg tab 650 mg 2 Tab, Oral, Q4H acetaminophen/HYDROcodone 325/5 mg tab 1 Tab, Oral, Q4H acetaminophen/HYDROcodone 325/5 mg tab 2 Tab, Oral, Q4H albuterol-ipratropium inh 3 mL 3 mL, Nebulized Inhalation, RT_Q4H ondansetron 4 mg/2 mL inj 4 mg 2 mL, IV Push, Q4H polyethylene glycol 3350 pwd 17 g pkt 17 Gram 1 Packet, Oral, Daily promethazine 25 mg/1 mL inj 6.25 mg 0.25 mL, IntraVENous, Q6H Problem list: All Problems Cardiomyopathy / SNOMED CT 331757778 / Confirmed GERD (gastroesophageal reflux disease) / SNOMED CT 949091531 / Confirmed HTN (hypertension) / SNOMED CT 2095334446 / Confirmed Tachycardia / SNOMED CT 9971659 / Confirmed, Active Problems (4) Cardiomyopathy GERD (gastroesophageal reflux disease) HTN (hypertension) Tachycardia Histories No education data available. Social & Psychosocial Habits No Data Available Past Medical History: No active or resolved past medical history items have been selected or recorded. Family History: No family history items have been selected or recorded., no family history of SCD Procedure history: bunyons removed from feet. jaw surgery. c- sections x2. tubal ligation. rt wrsit surgery for nerve damage. Social History Social & Psychosocial Habits No Data Available . Physical Examination VS/Measurements Vitals Signs (last 24 hrs) Last Charted Minimum Maximum Temp 97.7 (JAN 31:) L 96.2 (JAN 31:05) 98.1 (JAN 30:46) Mon HR 73 (JAN [...] (JAN 30 20:46) 100 (JAN 30 22:20) General: Alert and oriented. Eye: Pupils are [...] Normal range of motion. Integumentary: Warm, Dry, Amasa. Neurologic: Alert, Oriented. Psychiatric: Cooperative, Appropriate mood & affect. Review / Management JAN 31 06:03 137 110 10 / 95 3.8 23 0.70 \ JAN 31 06:03 \ 11.7 / L 3.2 250 / 36.0 \ Telemetry/ECG I personally reviewed the last 24 hour telemetry that show normal sinus rhythm Cardiac echo - 09/03/2020 LVEF 20-25% with a severely dilated left ventricle. Elevated LV filling pressures Mildly dilated left atrium Mild mitral regurgitation Cardiac Markers (Current Encounter/Past 24 Hours) ProBNP 286 pg/mL OK 01/30/2021 17:58 Blood Gases (Current Encounter/Past 24 Hours) No Blood Gas Results Found (Past 24 Hours) No Radiology Results Found Results review: Labs (Last four charted values) [...] 2.9 (JAN 31) . Impression and Plan IMPRESSION: *Acute post-operative drainage hopefully superficial ICD implant on 01/16/2021, ID consulted for their input *hypertension *Nonischemic Dilated Cardiomyopathy continue medical management *Chronic systolic heart failure, ACC/AHA stage C *ICD for primary prevention PLAN: Labs and telemetry reviewed. Potassium replaced. Would recommend keeping Potassium > 4.0 and Magnesiuim > 2.0. Discussion with Dr. Saleem with infectious disease and agree with aggressive antibiotic treatment. Blood cultures drawn. Electronically signed by Melyssa, [facility] Conversion Assistant Media Planner Cerner at 07/08/2022 9:02 AM CDT documented in this encounter Plan of Treatment Upcoming Encounters Date Type Department Care Team (Late st Contact Info) Description 11/17/2024 9:30 AM EDT Office Visit [facility] Electrophysiology [address] [place], [place] [phone] Sukhwinder Carrion MD [address] [place], [place] [phone] documented as of this encounter Visit Diagnoses Not on filedocumented in this encounter Care Teams Social Welfare Research Worker Relationship Specialty Start Date End Date Bernardo Bashir MD [address] [place] [address] PCP - General Family Medicine 05/13/24 Sukhwinder Carrino MD [address] [place] [address] Roper Operator Electrophysiology 12/28/23 documented as of this encounter
--- OUTSIDE RECORDS SUMMARY | 2024-10-05 13:17 | XMS_ITS | Encounter Summary ---
Author Organization [employer] ([place], [place], [place], [place]) Address [address] [place] [address] Care Team Providers Care Manager Systems Name Role Phone Carlos Carrion MD Unavailable Bernardo Bashir MD Primary Care Provider [phone] [phone] Encounter Details Date Type Department Care Team (Late st Contact Info) Description 01/31/2021 Transcribed Document [facility] [place] Family Medicine [address] [place] [address] ProviderNehemiah MD [address] [place] [address] Social History Tobacco Use Types [...] Conversion Note - Nehemiah ProviderMD - 01/31/2021 8:25 AM CNC GRINDER Consult Phone Call Documentation Entered On: 01/31/2021 9:07 EST Performed On: 01/31/2021 8:25 EST by Marla Hernández Phone Call for Consults Consult Phone Call/Page Attempt : First call Consult Reason : s.p ppm possiable ppm infection Physician Requesting Consult : ОЛЕГ TERRY MD-INT Physician Requested for Consult : JUAN JOSÉ MARTINS MD-INF Provider Service Notified Name : Infectious Disease Date and Time Call Returned : 01/31/2021 9:07 EST Consult, Additional Information : spoke to donta at the office Marla Hernández - 01/31/2021 9:06 EST documented in this encounter Plan of Treatment Upcoming Encounters Date Type Department Care Team (Late st Contact Info) Description 11/17/2024 9:30 AM EDT Office Visit [facility] Electrophysiology [address] [place], [place] [phone] Carlos Carrion MD [address] [place] [address] [place] [phone] documented as of this encounter Visit Diagnoses Not on filedocumented in this encounter Care Teams Manager Systems Relationship Specialty Start Date End Date Bernardo Bashir MD [address] [place] [address] PCP - General Family Medicine 05/13/24 Carlos Carrion MD [address] [place], [place] [phone] Insulation Blanket Maker Electrophysiology 12/28/23 documented as of this encounter
--- OUTSIDE RECORDS SUMMARY | 2024-10-05 13:17 | XMS_ITS | Encounter Summary ---
Author Organization [employer] ([place], [place], [place], [place]) Address [address] [place] [address] Care Team Providers Care Clinical Nurse Manager Name Role Phone Carlos Carrion MD Unavailable Bernardo Bashir MD Primary Care Provider [phone] [phone] Encounter Details Date Type Department Care Team (Late st Contact Info) Description 02/03/2021 Transcribed Document [facility] [place] [address] [place] [address] ProviderNehemiah MD [address] [place] [address] Social History Tobacco Use Types [...] Cerner Conversion Note - Historical ProviderMD - 02/03/2021 10:00 PM MOTEL FRONT DESK CLERK Provider Notification Entered On: 02/03/2021 23:11 EST Performed On: 02/03/2021 22:00 EST by Yuni Domingo Rn-Traveler Provider Notification Provider Notified of Concerns/Results : Other: itching Provider Notified of : Nurse concerns Provider Notified Name : SHAKIRA WATSON MD Results to Provider Comment : tab.benadryl 25 mg stat Yuni Domingo Rn-Traveler - 02/03/2021 23:10 EST Electronically signed by Melyssa [facility] Conversion Gym Attendant Cerner at 07/08/2022 8:58 AM CDT documented in this encounter Plan of Treatment Upcoming Encounters Date Type Department Care Team (Late st Contact Info) Description 11/17/2024 9:30 AM EDT Office Visit [facility] Electrophysiology [address] [place] [phone] [place] [address] [place] [address] [address] documented as of this encounter Visit Diagnoses Not on filedocumented in this encounter Care Teams Clinical Nurse Manager Relationship Specialty Start Date End Date Bernardo Bashir MD [address] [place] [address] PCP - General Family Medicine 05/13/24 Carlos Carrion MD [address] [place] [address] Loan Analyst Electrophysiology 12/28/23 documented as of this encounter
--- OUTSIDE RECORDS SUMMARY | 2024-10-05 13:17 | XMS_ITS | Encounter Summary ---
Author Organization [employer] ([place], [place], [place], [place]) Address [address] [place] [address] Care Team Providers Care Manager Stars Name Role Phone Carlos Carrion MD Unavailable Bernardo Bashir MD Primary Care Provider [phone] [phone] Encounter Details Date Type Department Care Team (Late st Contact Info) Description 02/04/2021 Transcribed Document [facility] [place] Family Medicine [address] [place] [address] ProviderNehemiah MD [address] [place] [address] Social History Tobacco Use Types [...] Conversion Note - Historical ProviderMD - 02/04/2021 2:00 AM HAT PRESSER Dollyman Details Entered On: 02/04/2021 4:44 EST Performed On: 02/04/2021 2:00 EST by Yuni Domingo Rn-Traveler Order Details Transport Mode Order Detail : Wheelchair Isolation Precautions Order Detail : Standard Precautions IV Order Detail : 1 Oxygen Order Detail : 1 Nurse Collect Order Detail : 0 Lift/Transfer : Independent Central Line Order Detail : No Room Service : Appropriate Arterial Line : No Patient Needs Meds Crushed/Liquid : No Yuni Domingo Rn-Traveler - 02/04/2021 4:43 EST documented in this encounter Plan of Treatment Upcoming Encounters Date Type Department Care Team (Late st Contact Info) Description 11/17/2024 9:30 AM EDT Office Visit [facility] Electrophysiology [address] [place] [phone] Carlos Carrion MD [address] [place] [address] [place] [phone] documented as of this encounter Visit Diagnoses Not on filedocumented in this encounter Care Teams Manager Stars Relationship Specialty Start Date End Date Bernardo Bashir MD [address] [place] [address] PCP - General Family Medicine 05/13/24 Carlos Carrion MD [address] [place] [address] [phone] Staff Development Coordinator Electrophysiology 12/28/23 documented as of this encounter
--- OUTSIDE RECORDS SUMMARY | 2024-10-05 13:17 | XMS_ITS | Encounter Summary ---
Author Organization [employer] ([place], [place], [place], [place]) Address [address] [place] [address] Care Team Providers Care Executive Casino Host Name Role Phone Carlos Carrion MD Unavailable Bernardo Bashir MD Primary Care Provider [phone] Encounter Details Date Type Department Care Team (Late st Contact Info) Description 02/04/2021 Transcribed Document [facility] Radiology [address] [place] [address] Grace Ardon MD [address] [place] [address] [place] [address] Social History Tobacco Use Types Packs/Day Years Used Date Smoking Tobacco: Never Assessed Comments Unknown Sex and Gender Information Value Date Recorded Sex Assigned at Female 09/17/2021 2:29 PM CDT Legal Sex Female 2:29 PM CDT Gender Identity Female 09/17/2021 2:29 PM CDT Sexual Orientation Not on file documented as of this encounter Miscellaneous Notes * Cerner Conversion Note - Grace Ardon MD - 02/04/2021 5:51 PM EST Patient: DEBRA ARAGON Age: 40 years Sex: Female : 1980 Associated Diagnoses: None Author: GRACE ARDON MD-INT Discharge dictated. #[id number]. documented in this encounter Plan of Treatment Upcoming Encounters Date Type Department Care Team (Late st Contact Info) Description 11/17/2024 9:30 AM EDT Office Visit [facility] Electrophysiology [address] [place] [address] [place] [address] [place] [address] [id number] documented as of this encounter Visit Diagnoses Not on filedocumented in this encounter Care Teams Executive Casino Host Relationship Specialty Start Date End Date Bernardo Bashir MD [address] [place] [address] PCP - General Family Medicine 05/13/24 Carlos Carrion MD [address] [place] [address] [id number] Professor Of Religion Electrophysiology 12/28/23 documented as of this encounter
--- OUTSIDE RECORDS SUMMARY | 2024-10-05 13:18 | XMS_ITS | Referral Summary ---
Author Organization [employer] ([place], [place], [place], [place]) Address [address] [place] [address] Care Team Providers Care Junior Assistant Manager Name Role Phone Carlos Carrion MD Unavailable Bernardo Bashir MD Primary Care Provider [phone] Allergies Active Allergy Reactions Criticality Noted Date Comments Levofloxacin Itching,Rash,Shortne ss Of Breath High 08/14/2015 Penicillin 05/13/2024 Penicillins Anaphylaxis,Hives,It chin g,Rash,Shortness Of Breath High 06/05/2015 Other Reaction(s): Not available Vancomycin Rash Medium 02/10/2021 Medications amiodarone (PACERONE) 200 MG tablet Take 1 tablet (200 mg total) by mouth daily. 04/25/2024 Active Eliquis 5 MG tablet Take 1 tablet (5 mg total) by mouth 2 (two) times daily. 04/19/2024 Active carvediloL (COREG) 6.25 MG tablet Take 1 tablet (6.25 mg total) by mouth 2 (two) times daily. 04/29/2024 Active cetirizine (ZyrTEC) 10 MG tablet Take 1 tablet (10 mg total) by mouth daily. 08/26/2023 Active Jardiance 10 mg tablet Take 1 tablet (10 mg total) by mouth. 04/20/2024 Active fluticasone propionate (FLONASE) 50 mcg/actuation nasal spray SPRAY 2 SPRAYS INTO THE NOSTRIL DIRECTED BY PROVIDER DAILY. Active furosemide (LASIX) 40 MG tablet Take 1 tablet (40 mg total) by mouth daily. 12/14/2023 Active Entresto 24-26 mg tablet Take 1 tablet by mouth 2 (two) times daily. 12/14/2023 Active spironolactone (ALDACTONE) 25 MG tablet Take 1 tablet (25 mg total) by mouth once. 04/20/2024 Active Active Problems Problem Noted Date Diagnosed Date Encounter for adjustment or management of cardia c device 04/25/2024 Automatic implantable cardiac defibrillator in s itu 04/07/2022 08/11/2023 Essential hypertension 04/07/2022 Nonischemic cardiomyopathy 02/10/202108/10 Chronic systolic (congestive) heart failure 08/2308/11/2023 Social History Tobacco Use Types Packs/Day Years Used Date Smoking Tobacco: Every Day Cigarettes Passive Smoke Exposure: Current Smokeless Tobacco: Never Alcohol Use Standard Drinks/Week Comments Not Currently 0 (1 standard drink = 0.6 oz pur e alcohol) Family and Community Support Answer John e Recorded Help with Day to Day Activities Not on file 04/10/2023 Feeling Lonely or Isolated Not on file 04/10 Educational Attainment Answer Date Hammad rded Speak language other than Chilean at home Not on file 04/10/2023 Want help with school or training Not on file 04/10/2023 Substance Use Answer Date Recorded Used prescription meds for non-medical reasons N ot on file 04/10/2023 Used illegal drugs past 12 months Not on file 04/10/2023 Comments No Sex and Gender Information Value Date Recorded Sex Assigned at Female 09/17/2021 2:29 PM CDT Legal Sex Female 2:29 PM CDT Gender Identity Female 09/17/2021 2:29 PM CDT Sexual Orientation Not on file Last Filed Vital Signs Vital Sign Reading Time Taken Comments Blood Pressure 118/70 05/13/2024 9:55 AM EST Pulse 72 05/13/2024 9:55 AM EST Temperature - - Respiratory Rate - - Oxygen Saturation 99% 05/13/2024 9:55 AM EST Inhaled Oxygen Concentration - - Weight 95.3 kg (210 lb) 05/13/2024 9:55 AM EST Height 157.5 cm (5' 2 ) 05/13/2024 9:55 AM EST Body Mass Index 38.41 05/13/2024 9:55 AM EST Plan of Treatment Upcoming Encounters Date Type Department Care Team (Late st Contact Info) Description 11/17/2024 9:30 AM EDT Office Visit [facility] Electrophysiology [address] [place] [phone] Carlos Carrion MD [address] [facility] [address] [place], [place] [id number] Medical Devices Implanted Type Area Barber Shop Manager Device Identifier Shelf Expiration Date Model / Serial / Lot Icd-01/16/2021 Implanted:2020 by Carlos Carrion MD (Quantity not on file) ICD [employer] [place] / [id number] / Insurance [facility] Care Teams Junior Assistant Manager Relationship Specialty Start Date End Date Bernardo Bashir MD [address] [place] [address] PCP - General Family Medicine 05/13/24 [place] [address] [place] [address] [place] [id number] Utility Tractor Operator Electrophysiology 12/28/23
--- OUTSIDE RECORDS SUMMARY | 2024-10-05 13:18 | XMS_ITS | Encounter Summary ---
Author Organization [employer] ([place], [place], [place], [place]) Address [address] [place] [address] Care Team Providers Care Web Operations Specialist Name Role Phone Carlos Carrion MD Unavailable Bernardo Bashir MD Primary Care Provider [phone] Encounter Details Date Type Department Care Team (Late st Contact Info) Description 02/02/2021 Transcribed Document [facility] Family Medicine [facility] [place] [address] ProviderNehemiah MD [facility] [place] [address] Social History Tobacco Use Types [...] Cerner Conversion Note - Nehemiah ProviderMD - 02/02/2021 2:00 AM CHOREOGRAPHY DIRECTOR Resort Host Details Entered On: 02/02/2021 4:14 EST Performed On: 02/02/2021 2:00 EST by BHAVNA TAI RN-PATIENT CARE BEDSIDE NON-EXEMPT Order Details IV Order Detail : 1 Oxygen Order Detail : 0 Nurse Collect Order Detail : 0 Patient Needs Meds Crushed/Liquid : No BHAVNA TAI RN-PATIENT CARE BEDSIDE NON-EXEMPT - 02/02/2021 4:14 EST Electronically signed by Melyssa [facility] Conversion Java Web Architect Cerner at 07/08/2022 9:01 AM CDT documented in this encounter Plan of Treatment Upcoming Encounters Date Type Department Care Team (Late st Contact Info) Description 11/17/2024 9:30 AM EDT Office Visit [facility] Electrophysiology [address] [place] [address] [place] [address] [place] [address] [address] [place] [id number] documented as of this encounter Visit Diagnoses Not on filedocumented in this encounter Care Teams Web Operations Specialist Relationship Specialty Start Date End Date Bernardo Bashir MD [address] [place] [address] PCP - General Family Medicine 05/13/24 [place] [address] [place] [address] [id number] Power Equipment Technology Instructor Electrophysiology 12/28/23 documented as of this encounter
--- OUTSIDE RECORDS SUMMARY | 2024-10-05 13:18 | XMS_ITS | Encounter Summary ---
Author Organization [employer] ([place], [place], [place], [place]) Address [address] [place] [address] Care Team Providers Care Wet Process Miller Head Name Role Phone Carlos Carrion MD Unavailable Bernardo Bashir MD Primary Care Provider [phone] Encounter Details Date Type Department Care Team (Late st Contact Info) Description 01/16/2021 Transcribed Document [facility] Family Medicine [address] [place] [address] ProviderNehemiah MD [address] [place] [address] Social History Tobacco Use Types [...] Cerner Conversion Note - Nehemiah ProviderMD - 01/16/2021 6:37 PM CDT Patient Education Materials Follows: General Anesthesia, Adult, Care After This sheet gives you information about how to care for yourself after your procedure. Your health care provider may also give you more specific instructions. If you have problems or questions, contact your health care provider. What can I expect after the procedure? After the procedure, the following side effects are common: ??? Pain or discomfort at the IV site. ??? Nausea. ??? Vomiting. ??? Sore throat. ??? Trouble concentrating. ??? Feeling cold or chills. ??? Weak or tired. ??? Sleepiness and fatigue. ??? Soreness and body aches. These side effects can affect parts of the body that were not involved in surgery. Follow these instructions at home: For at least 24 hours after the procedure: ??? Have a responsible adult stay with you. It is important to have someone help care for you until you are awake and alert. ??? Rest as needed. ??? Do not: ? Participate in activities in which you could fall or become injured. ? Drive. ? Use heavy machinery. ? Drink alcohol. ? Take sleeping pills or medicines that cause drowsiness. ? Make important decisions or sign legal documents. ? Take care of children on your own. Eating and drinking ??? Follow any instructions from your health care provider about eating or drinking restrictions. ??? When you feel hungry, start by eating small amounts of foods that are soft and easy to digest (bland), such as toast. Gradually return to your regular diet. ??? Drink enough fluid to keep your urine pale yellow. ??? If you vomit, rehydrate by drinking water, juice, or clear broth. General instructions ??? If you have sleep apnea, surgery and certain medicines can increase your risk for breathing problems. Follow instructions from your health care provider about wearing your sleep device: ? Anytime you are sleeping, including during daytime naps. ? While taking prescription pain medicines, sleeping medicines, or medicines that make you drowsy. ??? Return to your normal activities as told by your health care provider. Ask your health care provider what activities are safe for you. ??? Take qyod-wec-wwyocxe and prescription medicines only as told by your health care provider. ??? If you smoke, do not smoke without supervision. ??? Keep all follow-up visits as told by your health care provider. This is important. Contact a health care provider if: ??? You have nausea or vomiting that does not get better with medicine. ??? You cannot eat or drink without vomiting. ??? You have pain that does not get better with medicine. ??? You are unable to pass urine. ??? You develop a skin rash. ??? You have a fever. ??? You have redness around your IV site that gets worse. Get help right away if: ??? You have difficulty breathing. ??? You have chest pain. ??? You have blood in your urine or stool, or you vomit blood. Summary ??? After the procedure, it is common to have a sore throat or nausea. It is also common to feel tired. ??? Have a responsible adult stay with you for the first 24 hours after general anesthesia. It is important to have someone help care for you until you are awake and alert. ??? When you feel hungry, start by eating small amounts of foods that are soft and easy to digest (bland), such as toast. Gradually return to your regular diet. ??? Drink enough fluid to keep your urine pale yellow. ??? Return to your normal activities as told by your health care provider. Ask your health care provider what activities are safe for you. This information is not intended to replace advice given to you by your health care provider. Make sure you discuss any questions you have with your health care provider. Document Revised: 03/12/2018 Document Reviewed: 10/23/2017 [employer] Patient Education ? 2020 [employer] Procedures Cardioverter Defibrillator Implantation, Care After This sheet gives you information about how to care for yourself after your procedure. Your health care provider may also give you more specific instructions. If you have problems or questions, contact your health care provider. What can I expect after the procedure? After the procedure, it is common to have: ??? Some pain. Pain may last a few days. ??? A slight bump over the skin where the device was placed. Sometimes, it is possible to feel the device under the skin. This is normal. During the months and years after your procedure, your health care provider will check the device, the wires (leads), and the battery every few months. The generator is monitored over time and will be replaced when the battery is depleted. Follow these instructions at home: Incision care ??? Follow instructions from your health care provider about how to take care of your incision. Make sure you: ? Wash your hands with soap and water for at least 20 seconds before and after you change your bandage (dressing). If soap and water are not available, use hand sand carrier. ? Change your dressing as told by your health care provider. ? Leave stitches (sutures), skin glue, or adhesive strips in place. These skin closures may need to stay in place for 2 weeks or longer. If adhesive strip edges start to loosen and curl up, you may trim the loose edges. Do not remove adhesive strips completely unless your health care provider tells you to do that. ??? Check your incision area every day for signs of infection. Check for: ? More redness, swelling, or pain. ? More fluid or blood. ? Warmth. ? Pus or a bad smell. ??? Do not use lotions or ointments near the incision area unless told by your health care provider. Bathing ??? Do not take baths, swim, or use a hot tub until your health care provider approves. Ask your health care provider if you may take showers. You may only be allowed to take sponge baths. ??? Keep the incision area clean and dry for 2?3 days after the procedure or for as long as told by your health care provider. Cover your incision with a watertight covering if you take a sponge bath. It takes several weeks for the incision site to heal completely. Medicines ??? Take dzjc-jzz-izeuewb and prescription medicines only as told by your health care provider. ??? If you were prescribed an antibiotic medicine, take it as told by your health care provider. Do not stop taking the antibiotic even if you start to feel better. Activity ??? Avoid sitting for a long time without moving. Get up to take short walks every 1?2 hours. This is important to improve blood flow and breathing. Ask for help if you feel weak or unsteady. ??? For at least 6 weeks: ? Do not lift your upper arm above your shoulders. You may be given a sling to use. This means no tennis, golf, or swimming for this period of time. ? If you tend to sleep with your arm above your head, use a restraint, such as a sling, to prevent movement during sleep. ? Use your shoulder on the side of the defibrillator in daily tasks that do not require a lot of motion. ? Avoid sudden jerking, pulling, or chopping movements that pull your upper arm far away from your body. ??? Ask your health care provider when you may go back to work or play sports. ??? Do not drive or operate machinery until your health care provider says that it is safe. ??? Avoid full-contact sports or high-impact sports. Electric and magnetic ace ??? Tell all health care providers that you have a defibrillator. Magnetic resonance imaging (MRI) may damage your device if it is not compatible for this test. Newer models may be compatible with an MRI. ??? If you must pass through a metal detector, quickly walk through it. Do not stop under the detector, and do not stand near it. ??? Avoid places or objects that have a strong electric or magnetic field, including: ? Airport security levi. At the airport, let officials know that you have a defibrillator. Your defibrillator ID card will let you be checked in a way that is safe for you and will not damage your defibrillator. Do not let a security person wave a magnetic wand near your defibrillator. That can make it stop working. ? Power plants. ? Large electrical generators. ? Anti-theft systems or electronic article surveillance (EAS). ? Radiofrequency transmission towers, such as mobile phone and radio towers. ??? Do not use amateur radio equipment, electric welding torches, magnetic mattresses or chairs, and body fat measuring scales. ??? Some devices are safe to use if held at least 12 inches (30 cm) from your defibrillator. These include power tools, chain saws, lawn mowers, and speakers. You may safely use electric blankets, heating pads, computers, and microwave ovens. If you are unsure if something is safe to use, ask your health care provider. ??? MP3 players and headphones have magnets. Do not put them in a pocket near your device, and wear them as far away as possible. ??? When using your mobile phone, hold it to the ear that is on the opposite side from the defibrillator. Do not leave your mobile phone in a pocket over the defibrillator. General instructions ??? Always keep your defibrillator ID card with you. The card should list the implant date, device model, and mathematician research. Consider wearing a medical alert bracelet or necklace. ??? Have your defibrillator checked every 3?6 months or as often as told by your health care provider. Most defibrillators last for 5?7 years. ??? Follow instructions from your health care provider about eating or drinking restrictions, if this applies. ??? Discuss specific device restrictions with your device mathematician research or health care provider. ??? Keep all follow-up visits as told by your health care provider. This is important. Your health care provider will need to make sure your chest is healing the way it should. Ask your health care provider when you should come back to have your stitches or alonzo taken out. Contact a health care provider if: ??? You feel one shock in your chest. ??? You gain weight suddenly. ??? Your legs or feet swell more than they have before. ??? It feels like your heart is fluttering or skipping beats (heart palpitations). ??? You have any of these signs of infection around your incision: ? More redness, swelling, or pain. ? More fluid or blood. ? Warmth. ? Pus or a bad smell. ??? You have a fever. ??? You are feeling depressed, scared, anxious, or sad. Get help right away if: ??? You have chest pain. ??? You feel more than one shock. ??? You feel more short of breath than you have before. ??? You feel more light-headed than you have before. ??? Your incision starts to open up. ??? You faint. These symptoms may represent a serious problem that is an emergency. Do not wait to see if the symptoms will go away. Get medical help right away. Call your local emergency services (911 in the [place] Do not drive yourself to the hospital. Summary ??? It is important to follow your activity restrictions for 6 weeks following your device implantation. Do not lift your upper arm above your shoulder. ??? Always keep your defibrillator ID card with you. The card should list the implant date, device model, and mathematician research. Consider wearing a medical alert bracelet or necklace. ??? Follow the device distance restrictions for electric and magnetic ace. ??? Keep all follow-up visits with your health care provider for monitoring of your defibrillator. ??? Contact your health care provider if you have signs of an infection such as a fever or more redness, swelling, or pain around your incision. Get help right away if you have chest pain, receive more than one shock, or faint. This information is not intended to replace advice given to you by your health care provider. Make sure you discuss any questions you have with your health care provider. Document Revised: 01/04/2020 Document Reviewed: 01/04/2020 [employer] Patient Education ? 2020 [employer] documented in this encounter Plan of Treatment Upcoming Encounters Date Type Department Care Team (Late st Contact Info) Description 11/17/2024 9:30 AM EDT Office Visit [facility] Electrophysiology [address] [place] [phone] Carlos Carrion MD [address] [place] [address] [place] [address] documented as of this encounter Visit Diagnoses Not on filedocumented in this encounter Care Teams Wet Process Miller Head Relationship Specialty Start Date End Date Bernardo Bashir MD [address] [place] [address] PCP - General Family Medicine 05/13/24 Carlos Carrion MD [address] [place] [address] [place] [id number] Truck Rental Manager Electrophysiology 12/28/23 documented as of this encounter
--- OUTSIDE RECORDS SUMMARY | 2024-10-05 13:18 | XMS_ITS | Encounter Summary ---
Author Organization [employer] ([place], [place], [place], [place]) Address [address] [place] [address] Care Team Providers Care Regulator Assembler Name Role Phone Carlos Carrion MD Unavailable Bernardo Bashir MD Primary Care Provider [phone] [phone] Encounter Details Date Type Department Care Team (Late st Contact Info) Description 02/04/2021 Transcribed Document [facility] [place] Medicine [address] [place] [address] ProviderNehemiah MD [address] [place] [address] Social History Tobacco Use Types [...] Conversion Note - Nehemiah ProviderMD - 02/04/2021 2:27 PM WEBMETHODS CONSULTANT Final Discharge Planning Entered On: 02/04/2021 14:34 EST Performed On: 02/04/2021 14:27 EST by KENTRELL GIBBS, RN-Filing Or Registry Clerk ED Final Discharge Planning Discharge Arrangements : Patient Post-Acute Information Patient Name: OSMAN ARAGON Gender: Female : [birth year] Age: 40 Years No Post-Acute Placement(s) Listed No Post-Acute Service(s) Listed No Curaspan Referral(s) Listed Transportation Needs : Family/Friend Follow Up Appointment Scheduled : Yes Patient/Family Notified of Plan : Yes Patient/Family Notified : pt informing her support person/family of plan on her own. Is Patient Ready for Discharge? : Yes Discharge To Care Management : Home/Residential/Correction or Self Care -01 KENTRELL GIBBS, RN-Filing Or Registry Clerk ED - 02/04/2021 14:27 EST Final Narrative Note Final Narrative Note : DIscussed pt during MDR with care team this am. Anticipated d/c to home today with no CM needs, pending abx plan. ID note indicates plan is for pt to d/c to home on po abx. ID f/u appt made for pt on 02/18, and pt made aware of appt. Pt amb with ind and declines HH or other CM needs. Pt arranging her own transport to home. KENTRELL GIBBS, RN-Filing Or Registry Clerk ED - 02/04/2021 14:27 EST Electronically signed by [facility] Conversion Instructor Physical Education Cerner at 07/08/2022 9:00 AM CDT documented in this encounter Plan of Treatment Upcoming Encounters Date Type Department Care Team (Late st Contact Info) Description 11/17/2024 9:30 AM EDT Office Visit [facility] Electrophysiology [address] [place], [place] [phone] Carlos Carrion MD [address] [place] [address] documented as of this encounter Visit Diagnoses Not on filedocumented in this encounter Care Teams Regulator Assembler Relationship Specialty Start Date End Date Bernardo Bashir MD [address] [place] [address] PCP - General Family Medicine 05/13/24 Carlos Carrion MD [address] [place], [place] [id number] Train Driver Electrophysiology 12/28/23 documented as of this encounter
--- OUTSIDE RECORDS SUMMARY | 2024-10-05 13:18 | XMS_ITS | Encounter Summary ---
Author Organization [employer] ([place], [place], [place], [place]) Address [address] [place] [address] Care Team Providers Care Delivery Driver/Supervisor Name Role Phone Carlos Carrion MD Unavailable Bernardo Bashir MD Primary Care Provider [phone] Encounter Details Date Type Department Care Team (Late st Contact Info) Description 02/03/2021 Transcribed Document [facility] Radiology [address] [place] [address] Grace Ardon MD [address] [place] [address] [place] [address] Social History Tobacco Use Types Packs/Day Years [...] Conversion Note - Grace Ardon MD - 02/03/2021 1:02 PM EST Patient: OSMAN ARAGON Age: 40 Years Sex: Female : 1980 Subjective Date of encounter 02/03/21 Patient is feeling better No fever No nausea Vital Signs T: 36.5 ??C TMIN: 36.4 ??C TMAX: 36.8 ??C HR: 89(Monitored) RR: 17 BP: 105/71 SpO2: 96% Oxygen Settings (Last) Oxygen Therapy Mode: Room air (02/02/21 08:00:00) Intake & Output Totals Last 24 Hours (7a-7a) Input Total: 420 mL Output Total: 0 mL Balance: 420 mL Physical Exam General: Alert and oriented, well nourished, no acute distress. Eye: PERRL, EOMI, normal conjunctiva HENT: Normocephalic, , moist oral mucosa, no scleral icterus, Neck: Supple, non-tender Chest: Has PPM pocket on left without erythema and no drainage noted. Lungs: Clear to auscultation , non-labored respiration Heart: Normal rate, regular rhythm, no edema Abdomen: Soft, non-tender, non-distended, normal bowel sounds Musculoskeletal: no tenderness or swelling Skin: Skin is warm, dry and pink, no rashes or lesions Psychiatric: Cooperative, appropriate mood and affect Neurologic: Awake, alert, and oriented Assessment/Plan PPM pocket potential infection with recent insertion on 01/16 Patient has had suboptimal compliance with activity restrictions. Had been evaluated in office and had serous drainage and on emperic abx. ID following Continue with IV abx and then based on clinical course evaluate options and based on cultures which are negative thus far. Nonischemic cardiomyopathy Entresto therapy/coreg and lasix and continue Tobacco dependence Patient education and cessation recommendations Nicotine replacement therapy Morbid obesity BMI 40 Calorie appropriate diet Complicates all aspects of care Non compliance Patient has been threatening to leave AMA Discussed about importance of following through with databases computer consultant recommendations given the potential for serious consequences with recent PPM DVT prophylaxis with pneumatic boots Disposition:patient had recent PPM insertion on 01/16 with concern for PPM site infection. On emperic abx and ID following and discussed with on 02/01 Plan for continued IV abx and then determine options based on clinical course and culture data in am. Discussed with patient and nursing and time spent with above 20 minutes. Medications acetaminophen-HYDROcodone 325 mg-5 mg oral tablet, 1 Tab, Oral, Q4H, PRN acetaminophen-HYDROcodone 325 mg-5 mg oral tablet, 2 Tab, Oral, Q4H, PRN Coreg, 6.25 mg= 1 Tab, Oral, BID DAPTOmycin + Sodium Chloride 0.9% intravenous solution 50 mL DuoNeb 0.5 mg-2.5 mg/3 mL inhalation solution, 3 mL, Nebulized Inhalation , RT_Q4H, PRN Entresto 24 mg-26 mg oral tablet, 1 Tab, Oral, BID fluticasone 50 mcg/inh nasal spray, 100 mcg= 2 [place], Nasal, Daily, PRN furosemide, 20 mg= 1 Tab, Oral, Daily Habitrol 21 mg/24 hr transdermal film, extended release, 1 Patch, TransDermal, Daily Melatonin, 3 mg= 1 Tab, Oral, At Bedtime MiraLax, 17 Gram= 1 Packet, Oral, Daily, PRN Phenergan, 6.25 mg= 0.25 mL, IntraVENous, Q6H, PRN Senokot S, 1 Tab, Oral, BID sodium chloride 0.9% injectable solution, 10 mL, IV Push, Q8H Tylenol, 650 mg= 2 Tab, Oral, Q4H, PRN Tylenol, 650 mg= 2 Tab, Oral, Q4H, PRN Zofran, 4 mg= 2 mL, IV Push, Q4H, PRN Lab Results Test Name Test Result Date/Time WBC 5.4 K/uL 02/03/2021 05:53 EST RBC 4.46 Million/uL 02/03/2021 05:53 EST Hgb 12.4 g/dL 02/03/2021 05:53 EST Hct 38.6 % 02/03/2021 05:53 EST MCV 86.5 fL 02/03/2021 05:53 EST MCH 27.8 pg 02/03/2021 05:53 EST MCHC 32.1 Gram/dL (Low) 02/03/2021 05:53 EST Platelet Count 237 K/uL 02/03/2021 05:53 EST MPV 10.1 fL 02/03/2021 05:53 EST RDW 13.3 % 02/03/2021 05:53 EST Neutrophil Percent Man 63 % 02/03/2021 05:53 EST Band Percent Man 1 % (Low) 02/03/2021 05:53 EST ANC # 3 K/uL 02/03/2021 05:53 EST Lymph Percent Man 21 % (Low) 02/03/2021 05:53 EST ALYC # 1 K/uL 02/03/2021 05:53 EST [place] Percent Man 13 % (High) 02/03/2021 05:53 EST Eos Percent Man 2 % 02/03/2021 05:53 EST RBC Morphology Abnormal 02/03/2021 05:53 EST Poikilocytosis 1+ (Abnormal) 02/03/2021 05:53 EST Hypochromia 1+ (Abnormal) 02/03/2021 05:53 EST Target Cells 1+ (Abnormal) 02/03/2021 05:53 EST Teardrop Cells 1+ (Abnormal) 02/03/2021 05:[address] Estimate Adequate 02/03/2021 05:53 EST Slide Review Add Diff 02/03/2021 05:53 EST [1] Hospitalist Progress Note - SOAP; GRACE ARDON MD-INT 02/02/2021 11:56 EST documented in this encounter Plan of Treatment Upcoming Encounters Date Type Department Care Team (Late st Contact Info) Description 11/17/2024 9:30 AM EDT Office Visit [facility] Electrophysiology [address] [place] [phone] Carlos Carrion MD [address] [place] [address] [address] [place] [address] documented as of this encounter Visit Diagnoses Not on filedocumented in this encounter Care Teams Delivery Driver/Supervisor Relationship Specialty Start Date End Date Bernardo Bashir MD [address] [place] [address] PCP - General Family Medicine 05/13/24 Carlos Carrion MD [address] [place] [address] [address] [place] [address] Production Engine Repairer Electrophysiology 12/28/23 documented as of this encounter
--- OUTSIDE RECORDS SUMMARY | 2024-10-05 13:18 | XMS_ITS | Encounter Summary ---
Author Organization [employer] ([place], [place], [place], [place]) Address [address] [place] [address] Care Team Providers Care Ballet Professor Name Role Phone Carlos Carrion MD Unavailable Bernardo Bashir MD Primary Care Provider [phone] Encounter Details Date Type Department Care Team (Late st Contact Info) Description 02/04/2021 Transcribed Document [facility] [place] [address] [place] [address] ProviderNehemiah MD [address] [place] [address] Social History Tobacco Use Types [...] Conversion Note - Historical ProviderMD - 02/04/2021 5:00 AM MECHANICAL APPLICATIONS ENGINEER Chart Check - Review Order Profile Entered On: 02/04/2021 4:44 EST Performed On: 02/04/2021 5:00 EST by Yuni Domingo Rn-Travelneida Chart Check Powerplans Initiated/Discontinued as Appropriate : Yes All Active Orders Reviewed : Yes Yuni Domingo Rn-Traveler - 02/04/2021 4:44 EST documented in this encounter Plan of Treatment Upcoming Encounters Date Type Department Care Team (Late st Contact Info) Description 11/17/2024 9:30 AM EDT Office Visit [facility] Electrophysiology [address] [place] [phone] Carlos Carrion MD [address] [facility] [address] [address] documented as of this encounter Visit Diagnoses Not on filedocumented in this encounter Care Teams Ballet Professor Relationship Specialty Start Date End Date Bernardo Bashir MD [address] [place] [address] PCP - General Family Medicine 05/13/24 Carlos Carrion MD [address] [facility] [address] [address] Sawdust Drier Electrophysiology 12/28/23 documented as of this encounter
--- OUTSIDE RECORDS SUMMARY | 2024-10-05 13:18 | XMS_ITS | Encounter Summary ---
Author Organization [employer] ([place], [place], [place], [place]) Address [address] [place] [address] Care Team Providers Care Executive Assistant Name Role Phone Carlos Carrion MD Unavailable Bernardo Bashir MD Primary Care Provider [phone] Encounter Details Date Type Department Care Team (Late st Contact Info) Description 01/16/2021 Transcribed Document [facility] Family Medicine [address] [place] [address] ProviderNehemiah MD [address] [place] [address] Social History Tobacco Use Types [...] Conversion Note - Nehemiah ProviderMD - 01/16/2021 11:00 AM CDT Patient: OSMAN ARAGON [facility]: [id number] Age: 40 Years Sex: Female : 1980 CanGaroo?? Registry Study: A Multi-Center Registry Evaluating Participants who Receive CanGaroo?? Envelope or No Envelope During CIED Implantation Patient was approached for participation in the CanGaroo Study at the request of Dr. Carlos Carrion. Informed consent document discussed with the patient and her father who actively participated in the informed consent discussion and asked appropriate questions regarding study participation. The patient was alert, fully oriented and appropriate throughout the informed consent discussion. The patient was informed that participation in the study is voluntary and not participating in the study would not effect her medical care in any way. After all patient's questions were answered regarding study participation, the patient agreed to participate in the study. The informed consent document was signed and dated by patient and clinical research coordinator. A copy of the signed and dated consent was provided to the patient and a copy was taken to medical records to scan into electronic chart. The patient was given contact details for the drainage design coordinator. documented in this encounter Plan of Treatment Upcoming Encounters Date Type Department Care Team (Late st Contact Info) Description 11/17/2024 9:30 AM EDT Office Visit [facility] Electrophysiology [address] [place] [address] Carlos Carrion MD [address] [place], [place] [id number] documented as of this encounter Visit Diagnoses Not on filedocumented in this encounter Care Teams Executive Assistant Relationship Specialty Start Date End Date Bernardo Bashir MD [address] [place] [address] PCP - General Family Medicine 05/13/24 Carlos Carrion MD [address] [place] [id number] Lease Administration Analyst Electrophysiology 12/28/23 documented as of this encounter
--- OUTSIDE RECORDS SUMMARY | 2024-10-05 13:18 | XMS_ITS | Encounter Summary ---
Author Organization [employer] ([place], [place], [place], [place]) Address [address] [place] [address] Care Team Providers Care New Car Salesperson Name Role Phone Carlos Carrion MD Unavailable Bernardo Bashir MD Primary Care Provider [phone] Encounter Details Date Type Department Care Team (Late st Contact Info) Description 02/03/2021 Transcribed Document [facility] [place] Family Medicine [address] [place] [address] ProviderNehemiha MD [address] [place] [address] Social History Tobacco Use Types [...] Conversion Note - Historical ProviderMD - 02/03/2021 2:00 AM AIR TANK ASSEMBLER Lens Edger Details Entered On: 02/03/2021 1:47 EST Performed On: 02/03/2021 2:00 EST by SHANTANU SHAW RN Order Details IV Order Detail : 1 Oxygen Order Detail : 0 Nurse Collect Order Detail : 0 Patient Needs Meds Crushed/Liquid : No SHANTANU SHAW RN - 02/03/2021 1:47 EST documented in this encounter Plan of Treatment Upcoming Encounters Date Type Department Care Team (Late st Contact Info) Description 11/17/2024 9:30 AM EDT Office Visit [facility] Electrophysiology [address] [place] [phone] Carlos Carrion MD [address] [facility] [address] [id number] documented as of this encounter Visit Diagnoses Not on filedocumented in this encounter Care Teams New Car Salesperson Relationship Specialty Start Date End Date Bernardo Bashir MD [address] [place] [address] PCP - General Family Medicine 05/13/24 [place] [address] [place] [address] [address] Autocad Draftsman Electrophysiology 12/28/23 documented as of this encounter
--- OUTSIDE RECORDS SUMMARY | 2024-10-05 13:18 | XMS_ITS | Encounter Summary ---
Author Organization [employer] ([place], [place], [place], [place]) Address [address] [place] [address] Care Team Providers Care Vice President For Philanthropy Name Role Phone Carlos Carrion MD Unavailable Bernardo Bashir MD Primary Care Provider [phone] Encounter Details Date Type Department Care Team (Late st Contact Info) Description 01/16/2021 Transcribed Document [facility] [place] [address] [place] [address] ProviderNehemiah MD [address] [place] [address] Social History Tobacco Use Types [...] Conversion Note - Nehemiah ProviderMD - 01/16/2021 3:45 PM CDT Patient: OSMAN ARAGON Age: 40 Years Sex: Female : 1980 Transformation Consultant: Carlos Carrion MD Indication: 40 years old female referred for consideration of an ICD in the primary prevention. She has a past medical history of nonischemic cardiomyopathy discovered a few months ago while she was getting more short of breath. Her CTA suggests normal coronaries. 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 Her EF was 20-25% severely dilated but unchanged in November 2020 while on guidelines directed medical therapy. Her heart failure NYHA is close to 3. She also has essential hypertension, is a smoker and has a history of cocaine use. She is here to discuss a cardiac defibrillator in primary prevention. Procedure report: After written informed consent was obtained, the patient was brought to the Electrophysiology Laboratory in a fasting state. Antibiotics were infused before skin prep - 2g Cefazolin. Sedation was managed by the anesthesia team. The skin was prepared with sterile scrub. The patency of the subclavian vein as well as the absence of persistent LSVC were verified with a venogram. The left infraclavicular region was anesthetized with local anesthesia. Following infiltration with 2% lidocaine, an incision was made below the left clavicle. Electrocautery carried down through the fascia to the device pocket, and electrocautery used for hemostasis. A pocket was created anterior to the pre-pectoral fascia. The left subclavian vein was punctured once over the 1st rib and a guidewire was advanced under fluoro to the IVC level. A 7Fr sheath was advanced over the 1st guidewire and through this sheath, an ICD lead was advanced into the RV and fixated higher into the mid septum where it yielded excellent pacing and sensing values with no diaphragmatic stimulation at maximum output. The lead was sutured to the pre-pectoral fascia with non-absorbable suture. A single chamber ICD was attached to the lead. The device/lead were placed into the pocket. The pocket was flushed with antibiotic solution. All lead impedance, sensing and pacing were tested and found to be in good working order through the pulse generator. The pulse generator was attached to the muscle. A cangoroo pouch was used. VF was induced using the ICD by means of DC fiber T-wave shock. The device adequately detected and terminated VF with a single delivered 30J shock. The pocket was closed in 3 layers, using running 2-0 and 4-0 Vicryl. Dermabond was applied as well as Aquacel surgical dressing. Patient tolerated the procedure well and there were no complications at the end of the procedure. Lead and Device Information: The new device pulse generator was a Medtronic model [id number]. The V ventricular lead was a Medtronic model 6935M-55cm serial number [id number] with a sensing of 20 mV, impedance of 600 ohms and a threshold of 0.5 V. Complications: No immediate complications were observed. Blood loss around 10 mL. Conclusion: Successful Procedure(s) of: 1. Single CHAMBER ICD SYSTEM PLACEMENT 2. DFT successful documented in this encounter Plan of Treatment Upcoming Encounters Date Type Department Care Team (Late st Contact Info) Description 11/17/2024 9:30 AM EDT Office Visit [facility] Electrophysiology [address] [place] [phone] Carlos Carrion MD [address] [place] [address] [place] [address] documented as of this encounter Visit Diagnoses Not on filedocumented in this encounter Care Teams Vice President For Philanthropy Relationship Specialty Start Date End Date Bernardo Bashir MD [address] [place] [address] PCP - General Family Medicine 05/13/24 Carlos Carrion MD [address] [place] [address] [id number] Painter Ordnance Electrophysiology 12/28/23 documented as of this encounter
--- OUTSIDE RECORDS SUMMARY | 2024-10-05 13:18 | XMS_ITS | Continuity of Care Document ---
Author Organization [facility] Address [address] [facility] [address] [place] [address] Care Team Providers Care Wireless Architect Name Role Phone GABRIELA WASHINGTON Primary Care Provider [phone] Assessment No assessment recorded. Plan of Treatment Reminders Order Date Submit Date Provider Last Modified By Organization Details Last Modified Time Details Appointments None recorded. Lab rapid strep group A, throat 2024 025 [facility], [address] [facility] [address], [place], [address], Ph [phone] 5 09:40:46 infectious disease panel 2024 025 [facility], [address], [place], [address], 5 09:50:57 Referral None recorded. Procedures None recorded. Surgeries None recorded. Imaging None recorded. Medication Orders Bromfed DM 2 mg-30 mg-10 mg/5 mL oral syrup 2024 025 [id number], [address] [facility], [place], [address], 5 09:27:29 Patient TargetsNo targets recorded. Patient InstructionsNo instructions recorded. Reason for Referral None Reported. Results Created Date Observation Date Name Description Value Unit Range Abnormal Flag Note LastModifiedBy Organization Detail LastModifiedTime 08/30/1908/29/2024 rapid strep group A, throa t Strep negati ve Not Available [facility] [address], [place], [address], Ph [phone] 08/29/2024 09:08:36 Result Notes None recorded. Problems Name Problem SNOMED Code Status Onset Date Resolution Date Notes Provider Name and Address Organization Details Recorded Time Ventricular fibrillation 09367651 Active 2023 Loki Vu MD [address], [place], [address] , [place] [facility] & [place] 4 16:02:26 Cough 04735118 Active 2021 Nyasia Chew null, [place] [facility] & [place] 2 08:57:38 Dilated cardiomyopath y 665743227 Active 2022 Cheyenne Cervantes null, [place] [facility] & [place] 3 15:43:18 Essential hypertension 76425014 Active 2022 Cheyenne Cervantes null, [place] [facility] & [place] 3 15:43:31 Noncompliance with treatment 4952672 Active 2022 Cheyenne Cervantes null, [place] [facility] & [place] 3 15:43:45 Automatic implantable cardiac defibrillator in situ 363154020 Active 2022 Cheyenne Cervantes null, [place] [facility] & [place] 3 15:44:14 Cigarette smoker 23536406 Active 2022 Loki Vu MD [address] , [place], [address] , [place] [facility] & [place] 3 15:59:17 Dyspnea on exertion 99994577 Active 2022 Loki Vu MD [address], [place], [address] , [place] [facility] & [place] 3 16:05:50 Hypertensive disorder 44988879 Active 2023 Loki Vu MD [address], [place], [address] , [facility] & [place] 4 14:22:30 Problem Notes None recorded. Medical Equipment None Reported. Allergies Allergen ID Allergen Name Allergen Category Reaction Reaction Severity Criticality Documentation Date Start Date Code Code System Note Provider Name and Address Organization Details Recorded Time 13092 Product containin g penicilli n (product) medicatio n Not available Not available Not available 01/14/2022 28022 8001 SNOMED Nyasia Chew [facility], [facility] & [place] 2 08:57:39 Medications Name Sig Start Date [...] Updated DateTime 08/29/2024 154.94 cm 42.7 kg/m2 733313.59 g 98.5 [degF] Criselda LEROY [facility] & [place] 08/29/2024 09:08:29 Social History Question Answer Notes LastModified by Organizat ion Details LastModified Time Tobacco Smoking Status Current Every Day Smoker Carina crespo, MARIAA SAWYER [facility] & [place] 02/09/2024 15:27:07 What Is Your Level Of Caffeine Consumption? Moderate [email or web address] Information not available 02/09/2024 How Much Tobacco Do You Smoke? 1 PPD [email or web address] Information not available 02/09/2024 How Many Years Have You Smoked Tobacco? 20 [email or web address] Information not available 07/17/2023 Sex: Unknown Functional Status Question Answer Note LastModified by Organizat ion Details LastModified Time Do you use any illicit or recreational drugs? No past user [email or web address] Information not available 02/09/2024 What is your level of alcohol consumption? Occasional [email or web address] Information not available 04/12/2024 Mental Status None recorded. Family History Nothing Reported. Medical History Condition Response Coronary Artery Disease N None N Other N Gout N Blood Diseases N Kidney Stones N Hyperthyroidism N Blood Transfusion N COPD N Depression N Anxiety Disorder N Muscle, Joint, or Bone Problems N Vision or Eye Problems Y Arthritis N Polyps N Infertility N Cancer N Varicosities N Stroke N Fibromyalgia N Headaches N Kidney Disease N Heart Problems N Ear or Hearing Problems N Hospitalizations N Eating Disorder N Skin Problems N Constipation N Tuberculosis N Asthma N Jaundice N Hepatitis N Pulmonary Embolism N Chronic Ear Infections N Chicken Pox N Autism Spectrum Disorder (ASD) N Thrombophilias N Breast Cancer N Lung Disease N Hypothyroidism N Defects or Inherited Disease N Developmental or Behavioral Disorders N Breast Problem N Difficulty Swallowing N Anesthesia Complications N Meniere's disease N Endometriosis N Bladder or Kidney Problems N High Cholesterol N Liver Disease N Allergies/Hayfever N Thyroid Problems N GI Problems N ADD/ADHD N Anemia N Mental Illness N Diabetes N Ovarian Cancer N Bedwetting N Seizures/Epilepsy N Congestive Heart Failure (CHF) Y Eczema N Abuse/Domestic Violence N Diverticulitis N Reflux/GERD N Heart Disease N Pre-Eclampsia N Hypertension Y Osteoporosis N Gynecological HistoryNo gynecological history recorded. Obstetrics History GPAL:G 0 P 0 0 0 0 Immunizations Vaccine Type Date Status Note Provider Nam e and Address Organization Details Recorded Time Influenza, split virus, quadrivalent, PF 01/14/[address] [facility] 01/15/2022 08:57:38 Tdap 04/30/[address] [facility] 01/15/2022 08:57:38 Past Encounters Encounter ID Performer Location Encounter Start Date Encounter Closed Date Diagnosis/Indication Diagnosis SNOMED-CT Code Diagnosis ICD10 Code Diagnosis Note [id number] MD WATSON Llanos [facility] [address] [facility] [address] [place] [address] 08/29/2024 08:58:44 08/29/2024 09:29:10 Sore throat 300481901 J02.9 Upper resp iratory infection 97558166 J06.9 Presumed viral illness. Rest, plenty of fluids, OTC symptomati c treatment. Return for failure to improve over the next several days or sooner if worsening. Check [facility] for confirmati on as patient clearly wanted antibiotic s. Will send in Bromfed for symptoms. Health Concerns Section Related Observation LastModified by Organization Detai ls LastModified Time None Recorded Concern Status LastModified by Organization Details LastModified Time None Recorded Payers Encounter Date Sequence Insurance Name Policy Number Policy Medina Covered Member ID Medina Member ID Guarantor Name 08/29/[address] [facility] MARIAA (MEDICAID HMO) Osman Aragon [id number] Osman Aragon Notes Date Note Type Note Provider Name and Address Organization Details Recorded Time 08/29/2024 text/html Yesterday developed headache, sore throat, low grade fever, fatigue, body aches and feeling poorly. Fran Fonseca MD [address] , [place], [address], [facility] [place] & [place] 08/29/2024 09:28:31 OBGyn Episode No OBEpisode recorded.
--- OUTSIDE RECORDS SUMMARY | 2024-10-05 13:18 | XMS_ITS | Encounter Summary ---
Author Organization [employer] ([place], [place], [place], [place]) Address [address] [place] [address] Care Team Providers Care Ground Nuclear Weapons Assembly Officer Name Role Phone Carlos Carrion MD Unavailable Bernardo Bashir MD Primary Care Provider [phone] Encounter Details Date Type Department Care Team (Late st Contact Info) Description 02/02/2021 Transcribed Document [facility] Radiology [address] [place] [address] Rupa Ardon MD [address] [place] [address] [place] [address] Social History Tobacco Use Types Packs/Day Years [...] Conversion Note - Rupa Ardon MD - 02/02/2021 12:56 PM EST Patient: OSMAN ARAGON Age: 40 Years Sex: Female : 1980 Subjective Date of encounter 02/02/21 Patient is awake and alert Denies pain No nausea No fever Vital Signs T: 36.8 ??C TMIN: 36.2 ??C TMAX: 36.8 ??C HR: 77(Monitored) RR: 19 BP: 137/88 SpO2: 96% Oxygen Settings (Last) Oxygen Therapy Mode: Room air (02/02/21 08:00:00) Intake & Output Totals Last 24 Hours (7a-7a) Input Total: 930 mL Output Total: 0 mL Balance: 930 mL Physical Exam General: Alert and oriented, [...] Discussed about importance of following through with application development consultant recommendations given the potential for serious consequences with recent PPM DVT prophylaxis with pneumatic boots Disposition:patient had recent PPM insertion on 01/16 with concern for PPM site infection. On emperic abx and ID following and discussed with Plan for continued IV abx next 2 days and then determine options based on clinical course and culture data. Discussed with patient and nursing and time spent with above 22 minutes. VTE Prophylaxis - Medical Sequential Compression Device Start: 01/30/21 16:51:00 EST, Bilateral, Length: Knee High, While patient is in bed, Continuous Order (PREMA ROSAS) Medications acetaminophen-HYDROcodone 325 mg-5 mg oral tablet, [...] 50 mcg/inh nasal spray, 100 mcg= 2 [place], Nasal, Daily, PRN furosemide, 20 mg= 1 [...] Test Result Date/Time Sodium Level 137 mmol/L 02/02/2021 06:47 EST Potassium Level 4.4 mmol/L 02/02/2021 06:47 EST Chloride Level 109 mmol/L 02/02/2021 06:47 EST Carbon Dioxide Level 22 mmol/L 02/02/2021 06:47 EST Anion Gap 10 02/02/2021 06:47 EST Glucose Level 88 mg/dL 02/02/2021 06:47 EST Blood Urea Nitrogen 11 mg/dL 02/02/2021 06:47 EST Creatinine Level 0.70 mg/dL 02/02/2021 06:47 EST eGFR >60 mL/min/1.73m2 02/02/2021 06:47 EST eGFR NonAfrican >60 mL/min/1.73m2 02/02/2021 06:47 EST Bun/Creatinine 15.7 02/02/2021 06:47 EST Calcium Level 9.1 mg/dL 02/02/2021 06:47 EST Platelet Count 270 K/uL 02/01/2021 19:14 EST documented in this encounter Plan of Treatment Upcoming Encounters Date Type Department Care Team (Late st Contact Info) Description 11/17/2024 9:30 AM EDT Office Visit [facility] Electrophysiology [address] [place] [address] Carlos Carrion MD [address] [place] [address] [place] [address] documented as of this encounter Visit Diagnoses Not on filedocumented in this encounter Care Teams Ground Nuclear Weapons Assembly Officer Relationship Specialty Start Date End Date Bernardo Bashir MD [address] [place], [place] [id number] PCP - General Family Medicine 05/13/24 Carlos Carrion MD [address] [place] [address] [place] [id number] Drupal Architect Electrophysiology 12/28/23 documented as of this encounter
--- OUTSIDE RECORDS SUMMARY | 2024-10-05 13:18 | XMS_ITS | Clinical Summary ---
Author Organization [employer] ([place], [place], [place], [place]) Address [address] [place] [address] Care Team Providers Care Industrial Retrofit Designer Name Role Phone Carlos Carrion MD Unavailable Bernardo Bashir MD Primary Care Provider [phone] Allergies Active Allergy Reactions Criticality Noted Date [...] Date Hammad rded Speak language other than Barbadian at home Not on file 04/10/2023 Want [...] Description 11/17/2024 9:30 AM EDT Office Visit [facility] Electrophysiology [address] [place] [address] Carlos Carrion MD [address] [facility] [address] [place] [address] Health Maintenance Due Date Last Done Comments Depression Screening (12+) 1993 Tobacco Cessation Counseling and Screening (12+) 05/31 HIV Screening 1996 Hepatitis C Screening 06/01/1999 Pneumococcal Vaccine: 0-49 Years (1 of 2 - PCV) 2000 Lipid Panel 2001 Pap Smear 2002 Breast Cancer Screening 2021 COVID-19 VACCINE ( season) 2023 Influenza Vaccine (#1) 2024 DTAP/TDAP/TD VACCINES (2 - Td or Tdap) 04/30/2026 Medical Devices Implanted Type Area Assisted Living Nursing Director Device Identifier Shelf Expiration Date Model / Serial / Lot Icd-01/16/2021 Implanted:2020 by Carlos Carrion MD (Quantity not on file) ICD [employer] [place] / [id number] / Insurance [facility] Care Teams Industrial Retrofit Designer Relationship Specialty Start Date End Date Bernardo Bashir MD [address] [facility] [place] [address] PCP - General Family Medicine 05/13/24 Carlos Carrion MD [address] [facility] [place] [address] Drainage Design Coordinator Electrophysiology 12/28/23
--- OUTSIDE RECORDS SUMMARY | 2024-10-05 13:18 | XMS_ITS | Encounter Summary ---
Author Organization [employer] ([place], [place], [place], [place]) Address [address] [place] [address] Care Team Providers Care Power Plant Mechanic Name Role Phone Sukhwinder Carrion MD Unavailable Bernardo Bashir MD Primary Care Provider [phone] Encounter Details Date Type Department Care Team (Late st Contact Info) Description 01/16/2021 Transcribed Document [facility] Family Medicine [address] [place] [address] ProviderNehemiah MD [address] [place] [address] Social History Tobacco Use Types [...] Conversion Note - Nehemiah ProviderMD - 01/16/2021 6:41 PM CDT [facility] [place] [address] RUPA ARAGONMARV CAMPUZANO :1980 Visit Time:01/16/2021 Your Visit Summary Your Care Team Admitting Physician - SUKHWINDER CARRION MD-CAR Attending Physician - SUKHWINDER CARRION MD-CAR Primary Care Physician - KLAUDIA, MARK Referring Physician - SUKHWINDER CARRION MD-CAR Your Diagnosis Other cardiomyopathies, Other cardiomyopathies These Are Your Goals No qualifying data available. Discharge Vitals Heart Rate (Monitored) 74 Respiratory Rate 15 Blood Pressure 131/83 What to do next Instructions From Your Care Team Diet after Discharge: Resume usual diet as tolerated Activity after Discharge: Rest and relax today, No strenuous activity, No lifting more than 5 pounds for 1 week with left arm., _ Driving Restrictions: No driving until cleared by your physician. Showering/Bathing: No showering for 24 hours. Do not let shower spray onto dressing directly. Back to the shower only., _ Medications: No changes to your current home medications., _, _ Dressing Instructions: Leave Aquacel dressing in place until your follow up appointment., _, Wear the sling for the first 24 hours. then while sleeping for the first week. Discharge Activity: Discharge Activity: No heavy lifting over 10 lbs Diet: Discharge Diet: Resume usual diet as tolerated Wound/Incision Care Instructions: Keep operative site/wound clean and dry. Do not emove Aquacel dressing until seen in clinic in1 week. Driving Restriction: Do Not Drive Follow-Up Appointments Follow Up with SUKHWINDER CARRION MD-MIGDALIA When Within 1 week Comments Call for follow up appointment for in 1 week for removal of dressing and wound check. Where: Medications What How Much When Instructions Next Dose carvedilol (Coreg) 6.25 Milligram(s) Oral Two Times A Day furosemide (Lasix) 20 Milligram(s) Oral Every Day sacubitril-valsartan (Entresto 24 mg-26 mg oral tablet) 1 Tablet(s) Oral Two Times A Day Take your medications faithfully. Do NOT skip [...] per your retail pharmacy guidance. Allergies penicillin Immunizations This Visit No Immunizations Found Education Materials General Anesthesia, Adult, Care After This sheet [...] activities are safe for you. ??? Take rjtf-ldg-rzvakay and prescription medicines only as told by [...] provider. Document Revised: 03/12/2018 Document Reviewed: 10/23/2017 [employer] Patient Education ?? 2020 [employer] Inc. Cardioverter Defibrillator Implantation, Care After This sheet [...] and water are not available, use hand nylon machine operator. ? Change your dressing as told by [...] for 2???3 days after the procedure or for as long as told by your health care provider. Cover your incision with a watertight covering if you take a sponge bath. It takes several weeks for the incision site to heal completely. Medicines ??? Take gefb-dsi-qlkmpbh and prescription medicines only as told by your health care provider. ??? If you were prescribed an antibiotic medicine, take it as told by your health care provider. Do not stop taking the antibiotic even if you start to feel better. Activity ??? Avoid sitting for a long time without moving. Get up to take short walks every 1???2 hours. This is important to improve blood [...] list the implant date, device model, and power plant mechanic. Consider wearing a medical alert bracelet or necklace. ??? Have your defibrillator checked every 3???6 months or as often as told by your health care provider. Most defibrillators last for 5???7 years. ??? Follow instructions from your health care provider about eating or drinking restrictions, if this applies. ??? Discuss specific device restrictions with your device power plant mechanic or health care provider. ??? Keep all [...] list the implant date, device model, and power plant mechanic. Consider wearing a medical alert bracelet or [...] provider. Document Revised: 01/04/2020 Document Reviewed: 01/04/2020 [employer] Patient Education ?? 2020 [employer] Emergency Awareness and Preventative Care STROKE is [...] Assistance with quitting is available by contacting 1-489-JVPP-NOW. This is a free resource providing counseling, [...] This Visit (last charted value for your 01/16/2021 visit) Hematology 01/16/2021 12:17 PM WBC: 3.9 K/uL -- Normal range between ( 4.5 and 10.5 ) RBC: 4.84 Million/uL -- Normal range between ( 3.93 and 5.22 ) Hct: 41.8 % -- Normal range between ( 34.1 and 44.9 ) Hgb: 13.8 g/dL -- Normal range between ( 11.2 and 15.7 ) Platelet Count: 241 K/uL -- Normal range between ( 163 and 369 ) MCH: 28.5 pg -- Normal range between ( 25.6 and 32.2 ) MCHC: 33.0 Gram/dL -- Normal range between ( 32.2 and 36.5 ) MCV: 86.4 fL -- Normal range between ( 79.0 and 94.8 ) Slide Review: No Eos %: 1.3 % -- Normal range between ( 0.0 and 7.0 ) [place] #: 0.49 K/uL -- Normal range between ( 0.16 and 1.00 ) Eos #: 0.05 x10(3)/uL -- Normal range between ( 0.00 and 0.80 ) [place] %: 12.4 % -- Normal range between ( 3.0 and 9.0 ) Baso %: 0.5 % -- Normal range between ( 0.0 and 1.5 ) Baso #: 0.02 x10(3)/uL -- Normal range between ( 0.00 and 0.20 ) RDW: 14.3 % -- Normal range between ( 11.7 and 14.9 ) Neut %: 56.6 % -- Normal range between ( 34.0 and 71.0 ) Neut #: 2.23 K/uL -- Normal range between ( 1.56 and 6.13 ) Lymph %: 28.7 % -- Normal range between ( 19.3 and 53.1 ) Lymph #: 1.13 x10(3)/uL -- Normal range between ( 1.00 and 3.90 ) MPV: 10.6 fL -- Normal range between ( 9.4 and 12.4 ) IG#: 0.02 x10(3)/uL -- Normal range between ( 0.00 and 0.05 ) IG%: 0.50 % -- Normal range between ( 0.00 and 0.60 ) General Chemistry 01/16/2021 12:17 PM Creatinine Level: 0.70 mg/dL -- Normal range between ( 0.55 and 1.02 ) Sodium Level: 138 mmol/L -- Normal range between ( 136 and 146 ) Potassium Level: 4.4 mmol/L -- Normal range between ( 3.5 and 5.1 ) Chloride Level: 109 mmol/L -- Normal range between ( 102 and 112 ) Carbon Dioxide Level: 24 mmol/L -- Normal range between ( 21 and 32 ) Anion Gap: 9 -- Normal range between ( 9 and 20 ) Bun/Creatinine: 18.6 -- Normal range between ( 8.0 and 20.0 ) Calcium Level: 9.1 mg/dL -- Normal range between ( 8.4 and 10.1 ) eGFR : >60 mL/min/1.73m2 eGFR NonAfrican: >60 mL/min/1.73m2 Glucose Level: 86 mg/dL -- Normal range between ( 74 and 106 ) Blood Urea Nitrogen: 13 mg/dL -- Normal range between ( 7 and 22 ) Diagnostic Radiology 01/16/2021 5:45 PM CR Chest 1 Vw Portable: CR Chest 1 Vw Portable Patient Name:DEBRA ARAGON I have received and understand this information and was given the opportunity to ask questions. Patient/Block Engraver Name: Patient/Block Engraver Signature: Relationship to Patient: Clinician/Hospital Block Engraver Signature: Date: documented in this encounter Plan of Treatment Upcoming Encounters Date Type Department Care Team (Late st Contact Info) Description 11/17/2024 9:30 AM EDT Office Visit [facility] Electrophysiology [address] [place] [address] Sukhwinder Carrion MD [address] [place] [address] [address] [place] [address] documented as of this encounter Visit Diagnoses Not on filedocumented in this encounter Care Teams Power Plant Mechanic Relationship Specialty Start Date End Date Bernardo Bashir MD [address] [facility] [place] [address] PCP - General Family Medicine 05/13/24 Sukhwinder Carrion MD [address] [facility] [place] [address] Counseling Case Manager Electrophysiology 12/28/23 documented as of this encounter
--- OUTSIDE RECORDS SUMMARY | 2024-10-05 13:18 | XMS_ITS | Encounter Summary ---
Author Organization [employer] ([place], [place], [place], [place]) Address [address] [place] [address] Care Team Providers Care Watch Supervisor Name Role Phone Carlos Carrion MD Unavailable Bernardo Bashir MD Primary Care Provider [phone] Encounter Details Date Type Department Care Team (Late st Contact Info) Description 02/03/[address] [facility] Family Medicine [address] [place] [address] ProviderNehemiah MD [address] [place] [address] Social History Tobacco Use Types [...] Conversion Note - Historical ProviderMD - 02/03/2021 5:00 AM CIRCULATION SUPERVISOR Chart Check - Review Order Profile Entered On: 02/03/2021 6:48 EST Performed On: 02/03/2021 5:00 EST by SHANTANU SHAW RN Chart Check All Active Orders Reviewed : Yes SHANTANU SHAW RN - 02/03/2021 6:48 EST Electronically signed by Melyssa [facility] Conversion Product Transfer Pumper Cerner at 07/08/2022 8:53 AM CDT documented in this encounter Plan of Treatment Upcoming Encounters Date Type Department Care Team (Late st Contact Info) Description 11/17/2024 9:30 AM EDT Office Visit [address] [address] Carlos Carrion MD [address] [facility] [address] [place] [address] documented as of this encounter Visit Diagnoses Not on filedocumented in this encounter Care Teams Watch Supervisor Relationship Specialty Start Date End Date Bernardo Bashir MD [address] [place] [address] PCP - General Family Medicine 05/13/24 [place] [address] [place] [address] [place] [address] Pulley Mortiser Operator Electrophysiology 12/28/23 documented as of this encounter
--- OUTSIDE RECORDS SUMMARY | 2024-10-05 13:18 | XMS_ITS | Encounter Summary ---
Author Organization [employer] ([place], [place], [place], [place]) Address [address] [place] [address] Care Team Providers Care Screen Machine Operator Name Role Phone Carlos Carrion MD Unavailable Bernardo Bashir MD Primary Care Provider [phone] Encounter Details Date Type Department Care Team (Late st Contact Info) Description 02/01/2021 Transcribed Document [facility] [place] [address] [place] [address] ProviderNehemiah MD [address] [place] [address] Social History Tobacco Use Types [...] Cerner Conversion Note - Historical ProviderMD - 02/01/2021 2:00 AM CENTER MEDICAL SPECIALIST School Photographs Detailer Details Entered On: 02/01/2021 6:37 EST Performed On: 02/01/2021 2:00 EST by BHAVNA TAI RN-PATIENT CARE BEDSIDE NON-EXEMPT Order Details Patient Needs Meds Crushed/Liquid : No BHAVNA TAI RN-PATIENT CARE BEDSIDE NON-EXEMPT - 02/01/2021 6:37 EST documented in this encounter Plan of Treatment Upcoming Encounters Date Type Department Care Team (Late st Contact Info) Description 11/17/2024 9:30 AM EDT Office Visit [facility] Electrophysiology [address] [place] [phone] Carlos Carrion MD [address] [facility] [address] [id number] documented as of this encounter Visit Diagnoses Not on filedocumented in this encounter Care Teams Screen Machine Operator Relationship Specialty Start Date End Date Bernardo Bashir MD [address] [place] [address] PCP - General Family Medicine 05/13/24 [place] [address] [place] [address] [id number] Tax Intern Electrophysiology 12/28/23 documented as of this encounter
--- OUTSIDE RECORDS SUMMARY | 2024-10-05 13:18 | XMS_ITS | Encounter Summary ---
Author Organization [employer] ([place], [place], [place], [place]) Address [address] [place] [address] Care Team Providers Care Business Services Tech Name Role Phone Carlos Carrion MD Unavailable Bernardo Bashir MD Primary Care Provider [phone] Encounter Details Date Type Department Care Team (Late st Contact Info) Description 02/04/[address] [facility] [place] Family Medicine [address] [place] [address] ProviderNehemiah MD [address] [place] [address] Social History Tobacco Use Types [...] Conversion Note - Nehemiah ProviderMD - 02/04/2021 9:21 AM DRIVER UTILITY WORKER Patient: OSMAN ARAGON Age: 40 years Sex: Female : 1980 Associated Diagnoses: None Author: GIBSON ALVAREZ MD-INF Basic Information reason for consult: possible pacemaker infection HISTORY OF PRESENT ILLNESS 40 yo female diagnosed with CHF and severe cardiomyopathy 08/2020 in [place]. 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 FH brother with nonischemic cardiomyopathy; Mother with DM and CHF Review of Systems ROS reviewed as documented in chart Health Status Current medications: (Selected) Inpatient Medications Ordered Core.25 mg, Oral, BID DAPTOmycin + Sodium Chloride 0.9% intravenous solution 50 mL: 500 mg, 10 mL, 120 mL/Hr, IV Piggyback, [id number] DuoNeb 0.5 mg-2.5 mg/3 mL inhalation solution: [...] 50 mcg/inh nasal spray: 100 mcg, 2 [place], Nasal, Daily, PRN: Nasal Congestion furosemide: 20 mg, Oral, Daily sodium chloride 0.9% injectable solution: 10 mL, IV Push, Q8H Documented Medications Documented Entresto 24 mg-26 mg oral tablet: 1 Tab, Oral, BID, 60 Tab, 0 Refill(s) carvedilol 6.25 mg oral tablet: 1 Tab, Oral, BID, 60 Tab, 0 Refill(s) fluticasone 50 mcg/inh nasal spray: 2 [place], Nasal, Daily, PRN: Nasal Congestion, 16 Gram, [...] Last Charted Minimum Maximum Temp 97.6 (FEB 04:54) 97.6 (FEB 04:54) 98.3 (FEB 03:) Mon HR 78 (FEB 04:54) 66 (FEB 04:40) 89 (FEB 03 10:00) Resp Rate 18 (FEB 04:54) 16 (FEB 03:) 18 (FEB 03 20:48) SBP 111 (FEB 04:54) 95 (FEB 04 01:40) 128 (FEB 03 14:00) DBP 72 (FEB 04:54) L 59 (FEB 04:40) H 93 (FEB 03:) MAP 83 (FEB 04 05:54) 71 (FEB 04 01:40) 100 (FEB 03 17:26) SpO2 96 (FEB 04:54) 96 (FEB 03 20:48) 96 (FEB 03 20:48) General: Alert and oriented, No acute distress. Eye: Extraocular movements are intact, Normal conjunctiva. HENT: Normocephalic, Oral mucosa is moist. Neck: Supple, Non-tender. Respiratory: Lungs are clear to auscultation, Respirations are non-labored. Cardiovascular: Normal rate, chest wall pm site with no swelling or erythema scant tenderness which has been present since the procedure. Gastrointestinal: Soft, Non-tender. Musculoskeletal: Normal range of motion, Normal gait. Integumentary: Warm, [place]. Neurologic: Alert, Oriented, No focal deficits. Psychiatric: Cooperative. Review / Management Results review: Labs (Last four charted values) WBC 5.4 (NOV 14) L 3.7 (NOV 12) L 3.2 (NOV 11) L 4.4 (NOV 10) HB 12.4 (NOV 14) 11.9 (NOV 12) 11.7 (NOV 11) 13.2 (NOV 10) HCT 38.6 (NOV 14) 36.5 (NOV 12) 36.0 (NOV 11) 40.7 (NOV 10) Plt 237 (NOV 14) 270 (NOV 12) 250 (NOV 12) 250 (NOV 11) Na 138 (NOV 15) 137 (NOV 13) 137 (NOV 12) 137 (NOV 11) K 4.6 (NOV 15) 4.4 (NOV 13) 3.8 (NOV 12) 3.8 (NOV 11) Cl 108 (NOV 15) 109 (NOV 13) 109 (NOV 12) 110 (NOV 11) CO2 24 (NOV 15) 22 (NOV 13) 22 (NOV 12) 23 (NOV 11) BUN 14 (NOV 15) 11 (NOV 13) 13 (NOV 12) 10 (NOV 11) Cr 0.80 (NOV 15) 0.70 (NOV 13) 0.80 (NOV 12) 0.70 (NOV 11) Glu R 89 (NOV 15) 88 (NOV 13) 105 (NOV 12) 95 (NOV 11) Ca 9.1 (NOV 15) 9.1 (NOV 13) 8.8 (NOV 12) L 8.2 (NOV 11) PT 10.2 (NOV 11) INR 1.0 (NOV 11) AST 13 (NOV 11) ALT 23 (NOV 11) ALK P 74 (NOV 11) T Bili 0.6 (NOV 11) PTN 7.1 (NOV 11) ALB L 2.9 (JAN 31) . Impression [...] for infection -- ICD placement 01/16 -- Leukopenia- resolved I suspect that the leukopenia may have been from the single dose of vancomycin that she received 01/30 -- Nonischemic cardiomyopathy- evidently familial -- Tobacco abuse -- BMI 40 -- Noncompliance- I do not think that she is safe to do outpatient IV antibiotics -- Possible vancomycin allergy -- Penicillin allergy RECOMMENDATIONS -- home on oral antibiotics clindamycin 300mg tid -- probiotic while on antibiotics -- f/u with me 02/[address] Carrion 01/[address] Hernandez Electronically signed by [facility], [facility] Conversion Nc Manager Cerner at 07/08/2022 9:03 AM CDT documented in this encounter Plan of Treatment Upcoming Encounters Date Type Department Care Team (Late st Contact Info) Description 11/17/2024 9:30 AM EDT Office Visit [facility] Electrophysiology [address] [place] [phone] Carlos Carrion MD [address] [place] [address] documented as of this encounter Visit Diagnoses Not on filedocumented in this encounter Care Teams Business Services Tech Relationship Specialty Start Date End Date Bernardo Bashir MD [address] [place] [address] PCP - General Family Medicine 05/13/24 Carlos Carrion MD [address] [place] [address] [address] Call Box Wirer Electrophysiology 12/28/23 documented as of this encounter
--- OUTSIDE RECORDS SUMMARY | 2024-10-05 13:18 | XMS_ITS | Encounter Summary ---
Author Organization [employer] ([place], [place], [place], [place]) Address [address] [place] [address] Care Team Providers Care Soda Jerker Name Role Phone Carlos Carrion MD Unavailable Bernardo Bashir MD Primary Care Provider [phone] Encounter Details Date Type Department Care Team (Late st Contact Info) Description 01/16/2021 Transcribed Document [facility] [place] Family Medicine [address] [place] [address] ProviderNehemiah MD [address] [place] [address] Social History Tobacco Use Types [...] Conversion Note - Nehemiah ProviderMD - 01/16/2021 9:33 PM CDT Nursing Discharge Summary Entered On: 01/16/2021 21:34 EDT Performed On: 01/16/2021 21:33 EDT by SARAHY MARTINEZ senior systems developer Documentation Discharge Date/Time : 01/16/2021 21:30 EDT Patient Disposition, General : Discharge Discharge To : Home with ambulatory/outpatient follow-up Mode Of Departure, General Discharge : Private vehicle, Wheelchair Accompanied By, Discharge : Father IV Discontinued : Yes Personal Belongings With Patient : Yes Discharge Instructions Reviewed With, Opportunity For Questions Given : Patient, Father Patient Education Completed : Yes Teaching Method : Explanation, Printed materials Teaching Evaluation : Verbalizes understanding SARAHY MARTINEZ, FATOU - 01/16/2021 21:33 EDT documented in this encounter Plan of Treatment Upcoming Encounters Date Type Department Care Team (Late st Contact Info) Description 11/17/2024 9:30 AM EDT Office Visit [facility] Electrophysiology [address] [place] [phone] Carlos Carrion MD [address] [place] [address] [place] [address] documented as of this encounter Visit Diagnoses Not on filedocumented in this encounter Care Teams Soda Jerker Relationship Specialty Start Date End Date Bernardo Bashir MD [address] [place] [address] PCP - General Family Medicine 05/13/24 Carlos Carrion MD [address] [place] [address] [place] [id number] Store Promoter Electrophysiology 12/28/23 documented as of this encounter
--- OUTSIDE RECORDS SUMMARY | 2024-10-05 13:18 | XMS_ITS | Encounter Summary ---
Author Organization [employer] ([place], [place], [place], [place]) Address [address] [place] [address] Care Team Providers Care Housing And Residence Life Director Name Role Phone Carlos Carrion MD Unavailable Bernardo Bashir MD Primary Care Provider [phone] Encounter Details Date Type Department Care Team (Late st Contact Info) Description 02/04/2021 Transcribed Document [facility] [place] [address] [place] [address] ProviderNehemiah MD [address] [place] [address] Social History Tobacco Use Types [...] Conversion Note - Nehemiah ProviderMD - 02/04/2021 1:29 PM RAMPMAN Nursing Discharge Summary Entered On: 02/04/2021 13:30 EST Performed On: 02/04/2021 13:29 EST by KEV MANLEY security specialist Documentation Discharge Date/Time : 02/04/2021 13:30 EST Patient Disposition, General : Discharge Discharge To : Home with ambulatory/outpatient follow-up Mode Of Departure, General Discharge : Ambulatory Accompanied By, Discharge : Unaccompanied IV Discontinued : Yes Personal Belongings With Patient : Yes Prescriptions Given to Patient : No Medications Given to Patient : No Discharge Instructions Reviewed With, Opportunity For Questions Given : Patient Patient Education Completed : Yes Teaching Method : Explanation, Printed materials Teaching Evaluation : Verbalizes understanding KEV MANLEY, RN - 02/04/2021 13:29 EST Electronically signed by Melyssa, [facility] Conversion Test Analyst Cerner at 07/08/2022 9:07 AM CDT documented in this encounter Plan of Treatment Upcoming Encounters Date Type Department Care Team (Late st Contact Info) Description 11/17/2024 9:30 AM EDT Office Visit [facility] Electrophysiology [address] [place] [phone] Carlos Carrion MD [address] [place] [address] documented as of this encounter Visit Diagnoses Not on filedocumented in this encounter Care Teams Housing And Residence Life Director Relationship Specialty Start Date End Date Bernardo Bashir MD [address] [place] [address] PCP - General Family Medicine 05/13/24 Carlos Carrion MD [address] [place], [place] [phone] Rag Cutting Machine Tender Electrophysiology 12/28/23 documented as of this encounter
--- OUTSIDE RECORDS SUMMARY | 2024-10-05 13:18 | XMS_ITS | Encounter Summary ---
Author Organization [facility] ([place], [place], [place], [place]) Address [address] [place] [address] Care Team Providers Care Eye Care Professional Name Role Phone Carlos Carrion MD Unavailable Bernardo Bashir MD Primary Care Provider [phone] Encounter Details Date Type Department Care Team (Late st Contact Info) Description 02/05/2021 Transcribed Document [facility] [place] [address] [place] [address] ProviderNehemiah MD [address] [place] [address] Social History Tobacco Use [...] Cerner Conversion Note - Historical ProviderMD - 02/05/2021 2:44 PM BODY ROLLING MACHINE TENDER UM Authorization Entered On: 02/05/2021 14:44 EST Performed On: 02/05/2021 14:44 EST by Jocy Fonseca, Hearing Aid Specialist Primary Insurance Authorization Authorization and Policy Numbers : Insurance 1 Health [facility] Policy Number: [id number] Authorization Number: Insurance Primary Name : [facility] Policy Number: [id number] Authorization Status-Primary : Approved Auth/Referral Contact Name-Primary : [place] Reference Number-Primary : [id number] Authorization Number-Primary : [id number] Number of Days Authorized-Primary : 9 Day(s) Authorized Service Begin Date-Primary : 01/30/2021 EST Authorized Service End Date-Primary : 02/08/2021 EST Authorization Comments-Primary : Discharge date and summary faxed. Historical Authorization Comments-Primary : Comment 1: Continued stay authorized per fax 02/04/21 @ 1117. This request for inpatient services has been approved x10 days. Next review due 02/09/21. -Jessica Tinoco (Jocy Fonseca, Hearing Aid Specialist 02/04/2021 13:15) Comment 2: [facility] 01/31/21 auth# [id number] NRD 02/04/21 (MIHAELA MALONE, Corrections Corporal 01/31/2021 14:43) Comment 3: AUTH SUBMITTED VIA PORTAL W/ CLINICAL ATTACHED (Nataliya Keita, Rn-Utilization Review 01/31/2021 11:20) Jocy Fonseca, Hearing Aid Specialist - 02/05/2021 14:44 EST Electronically signed by [facility], [facility] Conversion Animal Trapper Cerner at 07/08/2022 9:12 AM CDT documented in this encounter Plan of Treatment Upcoming Encounters Date Type Department Care Team (Late st Contact Info) Description 11/17/2024 9:30 AM EDT Office Visit [facility] Electrophysiology [address] [place], [place] [phone] Carlos Carrion MD [address] [place] [address] documented as of this encounter Visit Diagnoses Not on filedocumented in this encounter Care Teams Eye Care Professional Relationship Specialty Start Date End Date Bernardo Bashir MD [address] [place] [address] PCP - General Family Medicine 05/13/24 Carlos Carrion MD [address] [place] [address] [address] Marketing Agent Electrophysiology 12/28/23 documented as of this encounter
--- OUTSIDE RECORDS SUMMARY | 2024-10-05 13:18 | XMS_ITS | Encounter Summary ---
Author Organization [employer] ([place], [place], [place], [place]) Address [address] [place] [address] Care Team Providers Care Appliance Mechanic Name Role Phone Carlos Carrion MD Unavailable Bernardo Bashir MD Primary Care Provider [phone] Encounter Details Date Type Department Care Team (Late st Contact Info) Description 02/01/2021 Transcribed Document [facility] Radiology [address] [place] [address] Rupa Ardon MD [address] [place] [address] [place] [address] Social History Tobacco Use Types Packs/Day Years [...] Conversion Note - Rupa Ardon MD - 02/01/2021 12:00 PM EST Patient: OSMAN ARAGON Age: 40 Years Sex: Female : 1980 Subjective Date of encounter 02/01/21 Patient is awake and alert Denies pain over PPM site Nurse reports patient has been wanting to leave No fever Vital Signs T: 36.6 ??C TMIN: 36.2 ??C TMAX: 36.7 ??C HR: 81(Monitored) RR: 19 BP: 117/78 SpO2: 98% Oxygen Settings (Last) Oxygen Therapy Mode: Room air (02/01/21 05:26:00) Intake & Output Totals Last 24 Hours (7a-7a) Input Total: 190 mL Output Total: 0 mL Balance: 190 mL Physical Exam General: Alert and oriented, [...] clinical course evaluate options and based on cultures. Nonischemic cardiomyopathy Entresto therapy/coreg and lasix and continue Tobacco dependence Patient education and cessation recommendations Nicotine replacement therapy Morbid obesity BMI 40 Calorie appropriate diet Complicates all aspects of care Non compliance Patient has been threatening to leave AMA Discussed about importance of following through with sap consultant recommendations given the potential for serious consequences with recent PPM DVT prophylaxis with pneumatic boots Disposition:patient had recent PPM insertion on 01/16 with concern for PPM site infection. On emperic abx and ID following and discussed with Plan for continued IV abx next 3 days and then determine options based on clinical course and culture data. Discussed with patient and during MDR and time spent with above 30 minutes. VTE Prophylaxis - Medical Sequential Compression [...] 50 mcg/inh nasal spray, 100 mcg= 2 [place], Nasal, Daily, PRN furosemide, 20 mg= 1 [...] Test Result Date/Time Sodium Level 137 mmol/L 02/01/2021 04:00 EST Potassium Level 3.8 mmol/L 02/01/2021 04:00 EST Chloride Level 109 mmol/L 02/01/2021 04:00 EST Carbon Dioxide Level 22 mmol/L 02/01/2021 04:00 EST Anion Gap 10 02/01/2021 04:00 EST Glucose Level 105 mg/dL 02/01/2021 04:00 EST Blood Urea Nitrogen 13 mg/dL 02/01/2021 04:00 EST Creatinine Level 0.80 mg/dL 02/01/2021 04:00 EST eGFR >60 mL/min/1.73m2 02/01/2021 04:00 EST eGFR NonAfrican >60 mL/min/1.73m2 02/01/2021 04:00 EST Bun/Creatinine 16.2 02/01/2021 04:00 EST Calcium Level 8.8 mg/dL 02/01/2021 04:00 EST Magnesium Level 1.8 mg/dL 02/01/2021 04:00 EST CK 53 Units/Liter 02/01/2021 04:00 EST WBC 3.7 K/uL (Low) 02/01/2021 04:00 EST RBC 4.26 Million/uL 02/01/2021 04:00 EST Hgb 11.9 g/dL 02/01/2021 04:00 EST Hct 36.5 % 02/01/2021 04:00 EST MCV 85.7 fL 02/01/2021 04:00 EST MCH 27.9 pg 02/01/2021 04:00 EST MCHC 32.6 Gram/dL 02/01/2021 04:00 EST Platelet Count 250 K/uL 02/01/2021 04:00 EST MPV 10.3 fL 02/01/2021 04:00 EST RDW 13.2 % 02/01/2021 04:00 EST Neutrophil Percent Man 47 % (Low) 02/01/2021 04:00 EST Lymph Percent Man 39 % 02/01/2021 04:00 EST [place] Percent Man 9 % (High) 02/01/2021 04:00 EST Eos Percent Man 4 % (High) 02/01/2021 04:00 EST Baso Percent Man 1 % 02/01/2021 04:00 EST RBC Morphology Abnormal 02/01/2021 04:00 EST Hypochromia 1+ (Abnormal) 02/01/2021 04:00 EST Stomatocytes 1+ (Abnormal) 02/01/2021 04:[address] Estimate Adequate 02/01/2021 04:00 EST Slide Review Add Diff 02/01/2021 04:00 EST documented in this encounter Plan of Treatment Upcoming Encounters Date Type Department Care Team (Late st Contact Info) Description 11/17/2024 9:30 AM EDT Office Visit [facility] Electrophysiology [address] [place] [address] Carlos Carrion MD [address] [place] [address] [address] [place] [address] documented as of this encounter Visit Diagnoses Not on filedocumented in this encounter Care Teams Appliance Mechanic Relationship Specialty Start Date End Date Bernardo Bashir MD [address] [facility] [address] PCP - General Family Medicine 05/13/24 [place] [address] [place] [address] [place] [address] Dairy And Food Laboratory Assistant Electrophysiology 12/28/23 documented as of this encounter
--- OUTSIDE RECORDS SUMMARY | 2024-10-05 13:18 | XMS_ITS | Encounter Summary ---
Author Organization [facility] Address [address] [place] [address] Care Team Providers Care Vegetable Picker Name Role Phone Moses Bashir MD Primary Care Provider [phone] Encounter Details Date Type Department Care Team (Latest Contact Info) Description 09/28/2024 Travel Social History Tobacco Use Types Packs/Day Years Used Date Smoking Tobacco: Every Day Cigarettes 0.5 10.5 Started: 2014 Smokeless Tobacco: Never Humiliation, Afraid, Rape, and Kick questionnair e [...] Date Recorded Patient Health Questionnaire-2 Score 0 04/29/2024 Hunger Vital Sign Answer Date Recorded Within [...] Date Recorded Patient Health Questionnaire-9 Score 0 04/29/2024 Housing Stability Vital Sign Answer John e Recorded In the last 12 months, was t here a time when you were not able to pay the mortgage or rent on time? No 04/18/2024 Number of Times Moved in the Last Year Not on fi le 04/18/2024 At any time in the past 12 m [facility], were you homeless or living in a longterm (including now)? No 04/18/2024 Utilities Answer Date Recorded In the past 12 months has th e electric, gas, oil, or water company threatened to shut off services in your home? No 04/18/2024 Comments Unknown Sex and Gender Information Value Date Recorded Sex Assigned at Not on file Legal Sex Female 8:37 PM EDT Gender Identity Not on file Sexual Orientation Not on file documented as of this encounter Plan of Treatment Upcoming Encounters Date Type Department Care Team (Late st Contact Info) Description 01/11/2025 8:00 AM EDT Office Visit [facility] [place] [facility] [address] [facility], [address] [place] [address] Sascha Chiang MD [address] [place] [address] documented as of this encounter Visit Diagnoses Not on filedocumented in this encounter Additional Health Concerns Assessment Noted Time PHQ-9 Depression Total Score: 0 04/29/19 25 11:20 AM EST A fall risk assessment has been complete d for the patient 04/29/2024 11:20 AM EST A Body Mass Index follow-up plan has been documented for the patient 05/01/2024 10:49 AM EST documented as of this encounter Care Teams Vegetable Picker Relationship Specialty Start Date End Date Moses Bashir MD [address] [place] [address] PCP - General Family Medicine 11/01/20 documented as of this encounter
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
--- OUTSIDE RECORDS SUMMARY | 2024-10-05 13:18 | XMS_ITS | Encounter Summary ---
Author Organization [employer] ([place], [place], [place], [place]) Address [address] [place] [address] Care Team Providers Care Outside Sales Account Representative Name Role Phone Carlos Carrion MD Unavailable Bernardo Bashir MD Primary Care Provider [phone] Encounter Details Date Type Department Care Team (Late st Contact Info) Description 01/16/2021 Transcribed Document [facility] [place] [address] [place] [address] ProviderNehemiah MD [address] [place] [address] Social History Tobacco Use Types [...] Cerner Conversion Note - Historical ProviderMD - 01/16/2021 12:00 PM CDT Pre Procedure Adult Entered On: 01/16/2021 12:06 EDT Performed On: 01/16/2021 12:00 EDT by SARAHY MARTINEZ RN Height and Weight, Clinical Dosing Height Source : Stated Height Entry Format : [place] Height, Feet : 5 ft(Converted to: 152 cm, 60 Inch) Height, Inches : 1 Inch(Converted to: 0 ft 1 Inch, 2.54 cm) Clinical Height : 154.94 cm Weight Source : Standing scale Weight Entry Format : [place] Clinical Dosing Weight : 94.55 kg Weight, Pounds : 208 lb Body Surface Area (BSA) : 1.92 m2 Body Mass Index : 39.4 kg/m2 (HI) [place] Body Weight : 47 kg SARAHY MARTINEZ RN - 01/16/2021 12:00 EDT Health Histories Smoking Status : Smoker, current status unknown Smokeless Tobacco Status : Never Desires Tobacco Cessation Medication : Yes SARAHY MARTINEZ RN - 01/16/2021 12:00 EDT Social History (As Of: 01/16/2021 12:06:48 EDT) Infectious Disease History Does patient have symptoms of COVID-19? : No Has the Patient Been Tested for COVID-19 in the last 14 days? : Yes, Patient stated results Negative Does the Patient state known exposure to a COVID-19 positive case in the last 14 days? : No Patient Vaccinated for COVID-19 : Not vaccinated Does Patient want a COVID-19 Vaccine? : No SARAHY MARTINEZ RN - 01/16/2021 12:00 EDT Infectious Disease Risk Screening Grid Cough < 2 wks of unknown origin : NO Cough > 2 weeks : NO Blood in Sputum : NO Fever or self-reported Fever : NO Rash of unknown origin : NO Headache : NO Stiff neck : NO Night Sweats : NO Unexplained Weight Loss : NO Diarrhea (3 episode per day) : NO SARAHY MARTINEZ RN - 01/16/2021 12:00 EDT Physical contact outside [place] in the last 30 days : No Hospitalized in Foreign Country : No Infectious Disease History : Chicken pox/Shingles, Mononucleosis, Mumps INF Disease TB Screening Calc : 0 INF Disease Recent Travel Calc : 0 SARAHY MARTINEZ RN - 01/16/2021 12:00 EDT COVID19 PreProcedure Screening Is this an Emergent or Add on Procedure? : No Date PreProcedure COVID-19 test known? : Yes Date of PreProcedure COVID-19 : 01/13/2021 EDT Has patient been isolated since the test : Yes Exposed to COVID19 symptoms since test? : No SARAHY MARTINEZ RN - 01/16/2021 12:00 EDT Anesthesia/Transfusion History Family History of Anesthesia Reaction : No prior transfusion(s) Transfusion History : Prior anesthesia without reaction Family History of Anesthesia Reaction : None SARAHY MARTINEZ RN - 01/16/2021 12:00 EDT Functional Assessment Living Situation : Home Current Home Treatments : None SARAHY MARTINEZ RN - 01/16/2021 12:00 EDT [facility] Suicide Severity Rating Scale (C-SSRS) CSSRS Past Month Wish to be : No CSSRS Past Month Suicidal Thoughts : No CSSRS Lifetime Suicide Behavior : No Suicide Severity Rating Score : 0 Suicide Severity Rating : No Additional Care Required at this time SARAHY MARTINEZ RN - 01/16/2021 12:00 EDT Psychosocial History Currently in Unsafe Situation : No SARAHY MARTINEZ RN - 01/16/2021 12:00 EDT Advance Directive Patient has Advance Directive *Q : No, patient refuses Advance Directive information SARAHY MARTINEZ RN - 01/16/2021 12:00 EDT General Info Support Person/Pt Rep Name : Randall rivera [phone] Want Family/Rep/Phys Notified of Admit : No Emergency Contact #1 : na Emergency Contact #1 Phone Number : na Emergency Contact #1 Relationship : na Emergency Contact #2 : na Emergency Contact #2 Phone Number : na Emergency Contact #2 Relationship : na Primary Language : Guyanese Communication Barrier : None Cv/Cvn Cv Tsc System Operator Needed : No SARAHY MARTINEZ RN - 01/16/2021 12:00 EDT Sleep Apnea Risk Assmt Hx of Obstructive [...] Sleep Apnea Risk Level Score : 1 SARAHY MARTINEZ RN - 01/16/2021 12:00 EDT Dirk Scale Dirk Sensory Perception : No impairment Dirk Moisture : Rarely moist Dirk Activity : Walks frequently Dirk Mobility : No limitation Dirk Nutrition : Excellent Dirk Friction and Shear : No apparent problem Dirk Score : 23 SARAHY MARTINEZ RN - 01/16/2021 12:00 EDT Fall Risk Scales ABCs Fall Injury Risk Identification : None ZARATE Hx Falls Immediate/Within 3 Months : No Zarate Secondary Diagnosis : No ZARATE Use of Ambulatory Aid : None ZARATE IV Therapy or IV Access : No Zarate Gait/Transferring : Normal, bedrest, immobile Zarate Mental Status : Oriented to own ability Zarate Fall Risk Score : 0 ZARATE Fall Scale Risk Level : 0-24 Low Risk [place] Fall Interventions : Bed in low position, Call device within reach, Non-slip footwear, Wheels locked SARAHY MARTINEZ RN - 01/16/2021 12:00 EDT Valuables and Belongings Valuables and Belongings : Clothing Clothing : Common streetwear Clothing Disposition : Bedside SARAHY MARTINEZ RN - 01/16/2021 12:00 EDT Electronically signed by Melyssa [facility] Conversion Mailhouse Operator Cerner at 07/08/2022 8:53 AM CDT documented in this encounter Plan of Treatment Upcoming Encounters Date Type Department Care Team (Late st Contact Info) Description 11/17/2024 9:30 AM EDT Office Visit [facility] Electrophysiology [address] [place] [phone] [place] [address] [place] [address] [place] [address] documented as of this encounter Visit Diagnoses Not on filedocumented in this encounter Care Teams Outside Sales Account Representative Relationship Specialty Start Date End Date Bernardo Bashir MD [address] [place] [address] PCP - General Family Medicine 05/13/24 Carlos Carrion MD [address] [place] [address] [place] [address] Funeral Pre Arrangement Counselor Electrophysiology 12/28/23 documented as of this encounter
--- OUTSIDE RECORDS SUMMARY | 2024-10-05 13:18 | XMS_ITS | Encounter Summary ---
Author Organization [employer] ([place], [place], [place], [place]) Address [address] [place] [address] Care Team Providers Care Human Resource Analyst Name Role Phone Carlos Carrion MD Unavailable Bernardo Bashir MD Primary Care Provider [phone] Encounter Details Date Type Department Care Team (Late st Contact Info) Description 02/01/2021 Transcribed Document [facility] [place] [address] [place] [address] ProviderNehemiah MD [address] [place] [address] Social History Tobacco Use Types [...] Conversion Note - Historical ProviderMD - 02/01/2021 5:00 PM RN ANGIOGRAPHY Chart Check - Review Order Profile Entered On: 02/01/2021 19:37 EST Performed On: 02/01/2021 17:00 EST by Tomeka Corona Non Emp RN Chart Check Powerplans Initiated/Discontinued as Appropriate : Yes All Active Orders Reviewed : Yes Tomeka Corona Non Emp RN - 02/01/2021 19:37 EST documented in this encounter Plan of Treatment Upcoming Encounters Date Type Department Care Team (Late st Contact Info) Description 11/17/2024 9:30 AM EDT Office Visit [address] [place] [phone] Carlos Carrion MD [address] [facility] [place] [address] documented as of this encounter Visit Diagnoses Not on filedocumented in this encounter Care Teams Human Resource Analyst Relationship Specialty Start Date End Date Bernardo Bashir MD [address] [place], [place] [id number] PCP - General Family Medicine 05/13/24 [place] [address] [place] [address] [place] [id number] Equipment Records Supervisor Electrophysiology 12/28/23 documented as of this encounter
--- OUTSIDE RECORDS SUMMARY | 2024-10-05 13:18 | XMS_ITS | Encounter Summary ---
Author Organization [facility] Address [address] [place] [address] Care Team Providers Care Spoon Maker Name Role Phone Moses Bashir MD Primary Care Provider [phone] Encounter Details Date Type Department Care Team (Latest Contact Info) Description 10/05/2024 Travel Social History Tobacco Use Types Packs/Day [...] any time in the past 12 [facility], were you homeless or living in a alf (including now)? No 04/18/2024 AUDIT-C Answer Date [...] the past 12 months has th e [employer], gas, oil, or water company threatened to shut off services in your home? No 04/18/2024 Comments No Sex and Gender Information Value Date Recorded Sex Assigned at Not on file Legal Sex Female 8:37 PM EDT Gender Identity Not on file Sexual Orientation Not on file documented as of this encounter Functional Status * AUDIT-C Score Answer Date of Assessment Author 2 10/05/2024 8:37 AM Yareli Zabala * Question Answer Date [...] Questionnaire -2 Score 0 10/05/2024 8:49 AM JAQUELINT Yareli Hoffman * Question Answer Date of [...] Questionnaire -9 Score 0 10/05/2024 8:49 AM Yareli Zabala * If you checked off any problems [...] Description 01/11/2025 8:00 AM EDT Office Visit [facility] [address] [facility], [address] [place] [address] Sascha Chiang MD [address] [place] [address] documented as of this encounter Visit [...] documented as of this encounter Care Teams Spoon Maker Relationship Specialty Start Date End Date Moses Bashir MD [address] [place] [address] PCP - General Family Medicine 11/01/20 documented as of this encounter
--- OUTSIDE RECORDS SUMMARY | 2024-10-05 13:18 | XMS_ITS | Encounter Summary ---
Author Organization [employer] ([place], [place], [place], [place]) Address [address] [address] Care Team Providers Care Photography Professor Name Role Phone Carlos Carrion MD Unavailable Bernardo Washington MD Primary Care Provider [phone] Encounter Details Date Type Department Care Team (Late st Contact Info) Description 02/09/2021 Transcribed Document [facility] [place] [address] [place] [address] ProviderNehemiah MD [address] [place] [address] Social History Tobacco Use Types [...] Cerner Conversion Note - Nehemiah ProviderMD - 02/09/2021 1:16 PM INSTRUCTIONAL SYSTEMS DESIGNER Patient Resource Center Entered On: 02/09/2021 13:17 EST Performed On: 02/09/2021 13:16 EST by Marlene Liz, Violin Teacher Patient Resource Center Established Provider Name : MOSES WASHINGTON Patient Phone Number : [phone] Patient Insurance Type : Medicaid (ex. Wellcare, Passport) Source of Referral : Patient recently visited- No need to visit patient- No new updates Location of Patient : Non ED patient Patient Email Address : Primary Care Scheduled : No Specialty Care Scheduled : No Qualify for Diabetes and/or Nutrition Referral : No Wound Care Appointment Made : No Why Patient Visited ED- Specialty spent : Other How Patient Arrived at ED : Other Primary Language : Frisian Patient Resource Center Comment : No PCP audit. Patient is established with Moses Washington Follow Up Needed : No Marlene Liz, Violin Teacher - 02/09/2021 13:16 EST Electronically signed by Melyssa [facility] Conversion Student Ministry Pastor Cerner at 07/08/2022 9:03 AM CDT documented in this encounter Plan of Treatment Upcoming Encounters Date Type Department Care Team (Late st Contact Info) Description 11/17/2024 9:30 AM EDT Office Visit [facility] Electrophysiology [address] [place], [place] [phone] Carlos Carrion MD [address] [place] [address] [address] [place] [address] documented as of this encounter Visit Diagnoses Not on filedocumented in this encounter Care Teams Photography Professor Relationship Specialty Start Date End Date Bernardo Washington MD [address] [place] [address] PCP - General Family Medicine 05/13/24 Carlos Carrion MD [address] [place] [address] [address] Elevator Constructor Supervisor Electrophysiology 12/28/23 documented as of this encounter
--- OUTSIDE RECORDS SUMMARY | 2024-10-05 13:18 | XMS_ITS | Encounter Summary ---
Author Organization [employer] ([place], [place], [place], [place]) Address [address] [place] [address] Care Team Providers Care Pallet Repairer Name Role Phone Carlos Carrion MD Unavailable Bernardo Bashir MD Primary Care Provider [phone] Encounter Details Date Type Department Care Team (Late st Contact Info) Description 02/01/[address] [facility] [place] [address] [place] [address] ProviderNehemiah MD [address] [place] [address] Social History Tobacco Use Types [...] Cerner Conversion Note - Nehemiah ProviderMD - 02/01/2021 3:56 PM PIE ICER MACHINE Patient: OSMAN ARAGON Age: 40 years Sex: Female : 1980 Associated Diagnoses: None Author: GIBSON ALVAREZ MD-INF Basic Information reason for consult: possible pacemaker infection HISTORY OF PRESENT ILLNESS 40 yo female diagnosed with CHF and severe cardiomyopathy 08/2020 in [place]. 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 FH brother with nonischemic cardiomyopathy; Mother with DM and CHF Review of Systems Unable to obtain Health Status Current medications: (Selected) Inpatient Medications Ordered Core.25 mg, Oral, BID DAPTOmycin + Sodium Chloride 0.9% intravenous solution 50 mL: 500 mg, 10 mL, 120 mL/Hr, IV Piggyback, [id number] DuoNeb 0.5 mg-2.5 mg/3 mL inhalation solution: [...] 50 mcg/inh nasal spray: 100 mcg, 2 [place], Nasal, Daily, PRN: Nasal Congestion furosemide: 20 mg, Oral, Daily magnesium sulfate: 1 Gram, 100 mL, 100 mL/Hr, IV Piggyback, 1-Time potassium chloride extended release: 20 mEq, Oral, 1-Time sodium chloride 0.9% injectable solution: 10 mL, IV Push, Q8H Documented Medications Documented Entresto 24 mg-26 mg oral tablet: 1 Tab, Oral, BID, 60 Tab, 0 Refill(s) carvedilol 6.25 mg oral tablet: 1 Tab, Oral, BID, 60 Tab, 0 Refill(s) fluticasone 50 mcg/inh nasal spray: 2 [place], Nasal, Daily, PRN: Nasal Congestion, 16 Gram, 0 Refill(s) furosemide 20 mg oral tablet: 1 Tab, Oral, Daily, 0 Refill(s) levocetirizine 5 mg oral tablet: 1 Tab, Oral, QPM, 30 Tab, 0 Refill(s) terbinafine 250 mg oral tablet: 1 Tab, Oral, Daily, Prescribed on 01/07/2021 x 30 days, 0 Refill(s) Physical Examination VS/Measurements Vitals Signs (last 24 hrs) Last Charted Minimum Maximum Temp 97.9 (FEB 01:) 97.9 (FEB 01:) 98 (JAN 31 18:16) Mon HR 81 (FEB 01:30) 69 (FEB 01 05:) 81 (FEB 01:30) Resp Rate 19 (FEB 01:) 17 (JAN 31 18:16) 19 (FEB 01 05:) SBP 117 (FEB 01:) 117 (FEB 01:30) 135 (JAN 31 20:13) DBP 78 (FEB 01:) 73 (FEB 01 05:) H 96 (JAN 31 18:16) MAP 90 (FEB 01:) 88 (FEB 01 05:) 110 (JAN 31 18:16) SpO2 98 (FEB 01:30) 95 (JAN 31 23:00) 98 (JAN 31 20:13) Review / Management Results review: Labs (Last four charted values) WBC L 3.7 (FEB 01) L 3.2 (JAN 31) L 4.4 (JAN 30) HB 11.9 (FEB 01) 11.7 (JAN 31) 13.2 (JAN 30) HCT 36.5 (FEB 01) 36.0 (JAN 31) 40.7 (JAN 30) Plt 250 (FEB 01) 250 (JAN 31) 274 (JAN 30) Na 137 (FEB 01) 137 (JAN 31) L 134 (JAN 30) K 3.8 (FEB 01) 3.8 (JAN 31) 4.2 (JAN 30) Cl 109 (FEB 01) 110 (JAN 31) 105 (JAN 30) CO2 22 (FEB 01) 23 (JAN 31) 27 (JAN 30) BUN 13 (FEB 01) 10 (JAN 31) 12 (JAN 30) Cr 0.80 (FEB 01) 0.70 (JAN 31) 0.80 (JAN 30) Glu R 105 (FEB 01) 95 (JAN 31) 93 (JAN 30) Ca 8.8 (FEB 01) L 8.2 (JAN 31) 9.3 (JAN 30) [...] infection -- ICD placement 01/16 -- Leukopenia- improved I suspect that the leukopenia may have [...] at options for outpatient therapy Discussed with RN Discussed with Dr Carrion 01/31 documented in this encounter Plan of Treatment Upcoming Encounters Date Type Department Care Team (Late st Contact Info) Description 11/17/2024 9:30 AM EDT Office Visit [facility] Electrophysiology [address] [place] [phone] Carlos Carrion MD [address] [place] [address] [place] [id number] documented as of this encounter Visit Diagnoses Not on filedocumented in this encounter Care Teams Pallet Repairer Relationship Specialty Start Date End Date Bernardo Bashir MD [address] [place] [address] PCP - General Family Medicine 05/13/24 Carlos Carrion MD [address] [place] [address] [id number] Director Corporate Security Electrophysiology 12/28/23 documented as of this encounter
--- OUTSIDE RECORDS SUMMARY | 2024-10-05 13:18 | XMS_ITS | Encounter Summary ---
Author Organization [employer] ([place], [place], [place], [place]) Address [address] [place] [address] Care Team Providers Care Housekeeper Manager Name Role Phone Carlos Carrion MD Unavailable Bernardo Bashir MD Primary Care Provider [phone] Encounter Details Date Type Department Care Team (Late st Contact Info) Description 02/01/[address] [facility] [place] [address] [place] [address] ProviderNehemiah MD [address] [place] [address] Social History Tobacco Use Types [...] Cerner Conversion Note - Historical Provider, - 02/01/2021 5:25 PM DEPALLETIZER OPERATOR On Going Discharge Planning Entered On: 02/01/2021 17:26 EST Performed On: 02/01/2021 17:25 EST by URVASHI HONEYCUTT, FATOU-Boiler WasherFrench Binder Progress Note Discharge Arrangements : Patient Post-Acute Information Patient Name: OSMAN ARAGON Gender: Female : [birth year] Age: 40 Years No Post-Acute Placement(s) Listed No Post-Acute Service(s) Listed No [place] Referral(s) Listed Is the Patient Meeting Medical Necessity : Yes Did you Attend Multidisciplinary Rounds? : Yes URVASHI HONEYCUTT, RN-Boiler Washer - 02/01/2021 17:25 EST Narrative Progress Note Narrative Progress Note : rrs low patient was admitted for possible surgical site indection. no cm orders for abx at this time . possible need for hh . no barriers . family to transport Historical Progress Note : rrs low cm chart review - patient not available . patient was admitted for possible infection of surgical site . patient has pacer placed 01/16. consults to id,card. cm will follow and arrange all discharge needs URVASHI HONEYCUTT RN-Boiler Washer - 01/31/21 16:36:17 URVASHI HONEYCUTT RN-Boiler Washer - 02/01/2021 17:25 EST Electronically signed by Melyssa [facility] Conversion Planetarium Sky Show Technician Cerner at 07/08/2022 9:12 AM CDT documented in this encounter Plan of Treatment Upcoming Encounters Date Type Department Care Team (Late st Contact Info) Description 11/17/2024 9:30 AM EDT Office Visit [facility] Electrophysiology [address] [place] [phone] [place] [address] [place] [address] [address] [place] [id number] documented as of this encounter Visit Diagnoses Not on filedocumented in this encounter Care Teams Housekeeper Manager Relationship Specialty Start Date End Date Bernardo Bashir MD [address] [place] [address] PCP - General Family Medicine 05/13/24 [place] [address] [place] [address] [address] [place] [address] Antique Clocks Repairer Electrophysiology 12/28/23 documented as of this encounter
--- OUTSIDE RECORDS SUMMARY | 2024-10-05 13:18 | XMS_ITS | Encounter Summary ---
Author Organization [employer] ([place], [place], [place], [place]) Address [address] [place] [address] Care Team Providers Care Director Of Student Financial Aid Name Role Phone Sukhwinder Carrion MD Unavailable Bernardo Bashir MD Primary Care Provider [phone] Encounter Details Date Type Department Care Team (Late st Contact Info) Description 02/01/2021 Transcribed Document [facility] [place] [address] [place] [address] ProviderNehemiah MD [facility] [place] [address] Social History Tobacco Use [...] Conversion Note - Nehemiah ProviderMD - 02/01/2021 10:58 AM RAIL GANG SUPERVISOR Patient: OSMAN ARAGON Age: 40 years Sex: Female : 1980 Associated Diagnoses: None Author: SUKHWINDER CARRION MD-CAR Subjective NAD Health Status Allergies: Allergic Reactions (Selected) Severity Not Documented Penicillin- No reactions were documented. Vancomycin- No reactions were documented., Allergies (1) Active Reaction vancomycin None Documented Current medications: (Selected) Inpatient Medications Ordered Core.25 mg, Oral, BID DAPTOmycin + Sodium Chloride 0.9% intravenous solution 50 mL: 500 mg, 10 mL, 120 mL/Hr, IV Piggyback, [id number] DuoNeb 0.5 mg-2.5 mg/3 mL inhalation solution: [...] Refill(s) fluticasone 50 mcg/inh nasal spray: 2 [place], Nasal, Daily, PRN: Nasal Congestion, 16 Gram, [...] BID fluticasone 50 mcg/inh nasal spray 2 [place], PRN, Nasal, Daily furosemide 20 mg oral tablet 20 mg = 1 Tab, Oral, Daily levocetirizine 5 mg oral tablet 5 mg = 1 Tab, Oral, QPM terbinafine 250 mg oral tablet 250 mg = 1 Tab, Oral, Daily , Medications (15) Active Scheduled: (7) #NaCl 0.9% *FLUSH* inj 10 mL 10 mL, IV Push, Q8H carvedilol 6.25 mg tab 6.25 mg 1 Tab, Oral, BID DAPTOmycin + NaCl 0.9% 50 mL 500 mg 10 mL, IV Piggyback, [id number] furosemide 20 mg tab 20 mg 1 Tab, Oral, Daily nicotine 21 mg/24 hr patch 1 Patch, TransDermal, Daily sacubitril-valsartan 24 mg-26 mg tab 1 Tab, Oral, BID senna/docusate 8.6/50 mg tab 1 Tab, Oral, BID Continuous: (0) PRN: (8) acetaminophen 325 mg tab 650 [...] list: All Problems Cardiomyopathy / SNOMED CT 178496357 / Confirmed Tachycardia / SNOMED CT 3237049 / Confirmed HTN (hypertension) / SNOMED CT 1439666067 / Confirmed GERD (gastroesophageal reflux disease) / SNOMED CT 777622106 / Confirmed, Active Problems (4) Cardiomyopathy GERD (gastroesophageal reflux disease) HTN (hypertension) Tachycardia Objective Intake and Output 24 hour intake, 24 hour output VS/Measurements Vitals Signs (last 24 hrs) Last Charted Minimum Maximum Temp 97.8 (FEB 01 05:26) 97.8 (FEB 01 05:) 98 (JAN 31 18:16) Mon HR 69 (FEB 01:) 69 (FEB 01 05:) 79 (JAN 31 18:16) Resp Rate 19 (FEB 01:) 17 (JAN 31 18:16) 19 (FEB 01:) SBP 123 (FEB 01:) 118 (JAN 31 23:00) 135 (JAN 31 20:13) DBP 73 (FEB 01:) 73 (FEB 01:) H 96 (JAN 31 18:) MAP 88 (FEB 01:) 88 (FEB 01 05:) 110 (JAN 31 18:16) SpO2 95 (FEB 01:) 95 (JAN 31 23:00) 100 (JAN 31 11:00) General: Alert and oriented. Eye: Pupils are [...] Normal range of motion. Integumentary: Warm, Dry, [place]. Neurologic: Alert, Oriented. Psychiatric: Cooperative, Appropriate mood & affect Results Review Telemetry Sinus rhythm, heart rate 80 FEB 01 04:00 137 109 13 / 105 3.8 22 0.80 \ FEB 01 04:00 \ 11.9 / L 3.7 250 / 36.5 \ Telemetry/ECG I personally reviewed the last 24 hour telemetry that show normal sinus rhythm Cardiac echo - 09/03/2020 LVEF 20-25% with a severely dilated left ventricle. Elevated LV filling pressures Mildly dilated left atrium Mild mitral regurgitation Cardiac Markers (Current Encounter/Past 24 Hours) CK 53 Units/Liter 02/01/2021 06:34 No Radiology Results Found Impression and Plan IMPRESSION: *Acute post-operative drainage hopefully superficial ICD implant on 01/16/2021, ID consulted for their input *hypertension *Nonischemic Dilated Cardiomyopathy continue medical management *Chronic systolic heart failure, ACC/AHA stage C *ICD for primary prevention PLAN: 02/01/2021 Labs and telemetry reviewed. Potassium and [...] Blood cultures drawn. Electronically signed by Melyssa, [facility] Conversion Licensed Chemical Spray Technician Cerner at 07/08/2022 8:53 AM CDT documented in this encounter Plan of Treatment Upcoming Encounters Date Type Department Care Team (Late st Contact Info) Description 11/17/2024 9:30 AM EDT Office Visit [facility] Electrophysiology [address] [place] [phone] Sukhwinder Carrion MD [address] [place] [address] [place] [address] documented as of this encounter Visit Diagnoses Not on filedocumented in this encounter Care Teams Director Of Student Financial Aid Relationship Specialty Start Date End Date Bernardo Bashir MD [address] [place] [id number] PCP - General Family Medicine 05/13/24 Sukhwinder Carrion MD [address] [place] [address] [place] [address] Nursery Teacher Electrophysiology 12/28/23 documented as of this encounter
--- OUTSIDE RECORDS SUMMARY | 2024-10-05 13:18 | XMS_ITS | Encounter Summary ---
Author Organization [employer] ([place], [place], [place], [place]) Address [address] [place] [address] Care Team Providers Care Manager Cancer Name Role Phone Carlos Carrion MD Unavailable Bernardo Bashir MD Primary Care Provider [phone] Encounter Details Date Type Department Care Team (Late st Contact Info) Description 02/04/2021 Transcribed Document [facility] [place] Family Medicine [facility] [address] ProviderNehemiah MD [address] [place] [address] Social History Tobacco Use Types [...] - Nehemiah ProviderMD - 02/04/2021 1:29 PM LITIGATION MANAGER Patient Education Materials Follows: Pacemaker Implantation, Adult, Care After This sheet [...] these instructions at home: Medicines ??? Take tjoj-ybw-cjwvyqa and prescription medicines only as told by [...] for 2?3 days after the procedure or as told by your health care provider. It takes several weeks for the incision site to completely heal. ??? Women may want to place a small pad over the incision site to protect it from their bra strap. ??? Do not take baths, swim, or use a hot tub for 7?10 days or until your health care provider [...] ??? Your pacemaker battery will last for 5?15 years. Your health care provider will do [...] or bruising over the incision. ??? Take sboz-sig-irjxkof and prescription medicines only as told by [...] provider. Document Revised: 02/08/2020 Document Reviewed: 02/08/2020 Else[employer] Patient Education ? 2020 [employer] documented in this encounter Plan of Treatment Upcoming Encounters Date Type Department Care Team (Late st Contact Info) Description 11/17/2024 9:30 AM EDT Office Visit [facility] Electrophysiology [address] [place] [phone] Carlos Carrion MD [address] [facility] [address] [place] [address] documented as of this encounter Visit Diagnoses Not on filedocumented in this encounter Care Teams Manager Cancer Relationship Specialty Start Date End Date Bernardo Bashir MD [address] [place] [id number] PCP - General Family Medicine 05/13/24 Carlos Carrion MD [address] [facility] [address] [place], [place] [id number] Bakery Clerk Electrophysiology 12/28/23 documented as of this encounter
--- NOTE | 2024-10-05 13:24 | PC.NURSE ---
Pt states that she is up to date on her tetanus shot.
[2024-10-05 13:30] VITALS: BP 123/89; PULSE 78; O2SAT 98
[2024-10-05 13:45] VITALS: BP 127/88; PULSE 78; O2SAT 99
[2024-10-05] MEDS: LIDOCAINE 1% W/EPI 1:100,000 20ML VIAL 10 ML SQ (13:45)
[2024-10-05 14:25] VITALS: BP 148/85; PULSE 78; RESP 16; TEMP 36.7; O2SAT 99
== END 2024-10-05 14:27 | disposition home or self-care (01) ==
PROVIDERS: Emergency Provider Student in an Organized Health Care Education/Training Program; PCP Family Medicine
DX: S61.411A Laceration without foreign body of right hand, initial encounter (principal); W25.XXXA Contact with sharp glass, initial encounter
CPT/HCPCS: 12002; 99283; J2004